=== PATIENT | female | born 1960 | race Caucasian/White ===

== ENCOUNTER 2023-06-12 11:07 | Outpatient (REF) | payer OTHER, SELFPAY ==
[2023-06-12 12:33] LABS: Influenza Virus A Antigen Negative; Influenza Virus B Antigen Negative; Internal Control Within Normal Limits; Respiratory Syncytial Virus Not Detected (NOT DETECTE); SARS-CoV-2 Ag POSITIVE (NEGATIVE)
== END 2023-06-12 11:08 | disposition home or self-care (01) ==
LOC: LAB 11:07
PROVIDERS: PCP Family Medicine; Visit Provider Family Medicine
DX: J21.9 Acute bronchiolitis, unspecified (principal)
CPT/HCPCS: 87420; 87804; 87811

== ENCOUNTER 2023-06-21 13:50 | Outpatient (OUT) | payer OTHER, SELFPAY ==
--- NOTE | 2023-06-21 13:52 | US_ITS ---
The [address] [address] Patient Name: TELMA GUZMAN MRN: [id number] date: 1960 Sex: F Assigned Patient Location: Current Patient Location: US Accession/Order Number: [id number] Exam Date: 06/21/2023 14:15 Report Date: 06/21/2023 15:16 At the request of: ISAI WILKS Procedure: US venous doppler LE LT Ultrasound venous duplex scan left lower extremity CLINICAL: Left calf pain for 2 days. TECHNIQUE: Evans-scale, color Doppler and Duplex examination of the left lower extremity was performed with and without provocative maneuvers. FINDINGS: Comparison: None. Sonographic examination of the left lower extremity deep venous system demonstrates normal compression, color-flow, respiratory variation in the left common femoral, superficial femoral, and popliteal veins. There is also normal compressibility of the greater saphenous vein. There is small amount of soft tissue with lack of compression in the proximal peroneal vein and a branch of the gastrocnemius vein, compatible with positive thrombus. US/US venous doppler LE LT IMPRESSION: 1. Positive for below-knee deep venous thrombus in the proximal left peroneal vein and a branch of the left gastrocnemius vein. The left popliteal vein and above-knee deep venous system in the left leg are patent. Patent greater saphenous vein. The nursing home social worker called results to Dr. Wilks's office at time of study. Electronically authenticated by: OZZIE MCFARLAND Date: 06/21/2023 15:16
--- OUTSIDE RECORDS SUMMARY | 2023-06-21 13:52 | XMS_ITS | CCD ---
Author Name Unknown Address [email or web address] [place] [address] Organization [facility] Care Team Providers Care Electro Mechanical Engineer Name Role Phone DR ISAI OROPEZA Admitting Unavailable DR ISAI OROPEZA Attending Unavailable Beti Cole Unavailable Edwin Quynh Unavailable DO Zayra Salcido Attending Provider [phone] DO Zayra Salcido Attending Provider MD Isai Oropeza Primary Care Provider MD Isai Oropeza Primary Care Provider Community, Outreach Attending Provider [phone] Isai Oropeza Primary Care Unavailable Community, Outreach Admitting Unavailable Community, [facility]reach Attending Unavailable Zayra Salcido Admitting Unavailable Zayra Salcido Attending Unavailable Zayra Salcido Admitting Unavailable Zayra Salcido Attending Unavailable Isai Oropeza Primary Care Unavailable Medications Current Medications Medication Drug Class(es) Dates Sig (Normalized) Sig (Original) Biotin (1 source) take 1 tablet by mouth once daily Biotin 1 tablet Orally Daily Active ciprofloxacin 2 mg/ml / hydrocortisone 10 mg/ml otic suspension (1 source) Corticosteroid, Quinolone Antimicrobial Start: 12-03-2017 Cipro HC 0.2-1 % 3 drops into affected ear Otic Twice a day for 7 day(s) Nov, Active estradiol 0.1 mg/ml vaginal cream (1 source) Estrogen Estradiol 0.1 MG/GM 1 _insert Vaginal Every Sunday Active estrogens, conjugated (intermediate) 0.625 mg/ml vaginal cream (4 sources) Estrogen Start: 06-24-2018 apply 0.625 mg topically once daily Conjugated Estrogens Active 0.625 MG TOPICAL Daily June 24, 2018 12:00am Premarin As Dire cted Active olopatadine (1 source) Histamine-1 Receptor Inhibitor Patanol Active Probiotic (1 source) Probiotic 1 Tabl et Orally As Directed Active simvastatin 20 mg oral tablet (1 source) HMG-CoA Reductase Inhibitor take 1 tablet by mouth once daily in the evening Simvastatin 20 MG 1 tablet in the evening Orally Once a day Active Suprep Bowel Prep Kit 17.5-3.13-1.6 GM/180ML (1 source) Start: 9 Suprep Bowel Prep Kit 17.5-3.13-1.6 GM/180ML 177ml bottle at 4pm, 177ml bottle at 11pm the day prior to colonoscopy Orally Twice a day for 1 day(s) May, Active Problems Active Problems Problem Classification Problem Date Documented Date Episodic/Chronic Immunizations and screening for infectious disease (3 sources) Encounter for screening for other viral diseases; Translations: [Contact with and (suspected) exposure to other viral communicable diseases] Onset: 08-30-2021 Resolved: 02-13-2022 Episodic Menopausal disorders (1 source) Postmenopausal bleeding; Translations: [Postmenopausal bleeding] Onset: 07-21-2022 Chronic Other and unspecified benign neoplasm (3 sources) History of polyp of colon; Translations: [Personal history of colonic polyps] 06-26-2018 Episodic Unclassified (1 source) Encounter for screening mammogram for malignant neoplasm of breast; Translations: [Encounter for screening mammogram for malignant neoplasm of breast] Onset: 10-05-2022 Past or Other Problems Problem Classification Problem Date Documented Da te Episodic/Chronic Genitourinary symptoms and ill-defined conditions (1 source) Hematuria, unspecified; Translations: [Hematuria, unspecified] Onset: 07-21-2022 Episodic Results Test Name Value Interpretation Reference Range Facility Alanine aminotransferase [En zymatic activity/volume] in Serum or PlasmaOrdered By: [facility] on 04-28-2023 ALT [Catalytic activity/Vol] 11 U/L 7-52 [facility] Albumin [Mass/volume] in Ser um or Plasma by Bromocresol green (BCG) dye binding methoOrdered By: [facility] on 04-28-2023 Albumin BCG dye [Mass/Vol] 4.2 g/dL 3.5-5.7 [facility] Alkaline phosphatase [Enzyma tic activity/volume] in Serum or PlasmaOrdered By: OUTREACH [facility] on 04-28-2023 ALP [Catalytic activity/Vol] 66 U/L 34-104 [facility] Aspartate aminotransferase [ Enzymatic activity/volume] in Serum or PlasmaOrdered By: [facility] on 04-28-2023 AST [Catalytic activity/Vol] 14 U/L 13-39 [facility] Bilirubin.total [Mass/volume ] in Serum or PlasmaOrdered By: OUTREACH [facility] on 04-28-2023 Bilirubin [Mass/Vol] 1.3 mg/dL 0.3-1.0 [facility] Comment on above: Samples from patient s who have taken Naproxen have shown spurious elevation in Total Bilirubin levels. A metabolite of Naproxen, O-desmethylnaproxen, has been shown to interfere with the Angel-Hodan method for measuring Total Bilirubin. CBC Without Differentialon 1 06-29-2022 Erythrocyte distribution width (RBC) [Ratio] 13.6 % Normal 11.9-15.3 [facility] Comment on above: Performed By: #### C BCNOOUTREACH, OUTREACH LIPID, OUTREACH CMP #### [address] Hematocrit (Bld) [Volume fraction] 36.4 % Normal 34.0-46.4 [facility] Comment on above: Performed By: #### C BCNOOUTREACH, OUTREACH LIPID, OUTREACH CMP #### [address] Hemoglobin (Bld) [Mass/Vol] 12.1 g/dL Normal 11.8-15.4 [facility] Comment on above: Performed By: #### C BCNOOUTREACH, OUTREACH LIPID, OUTREACH CMP #### [address] MCH (RBC) [Entitic mass] 30.0 pg Normal 24.7-34.3 [facility] Comment on above: Performed By: #### C BCNOOUTREACH, OUTREACH LIPID, OUTREACH CMP #### [address] [place] [address] [place] MCV (RBC) [Entitic vol] 90.1 fL Normal 80-100 [facility] Comment on above: Performed By: #### C BCNOOUTREACH, OUTREACH LIPID, OUTREACH CMP #### [facility] [address] Mean Corpuscular HGB Conc 33.3 g/dL Normal 32.0-35.0 [facility] Comment on above: Performed By: #### C BCNOOUTREACH, OUTREACH LIPID, OUTREACH CMP #### [address] Platelet mean volume (Bld) [Entitic vol] 8.6 fL Normal 6.3-10.7 [facility] Comment on above: Result Comment: PERF ORMED BY: [place] [address] PATHOLOGIST FLIGHT TEACHER DEON KLINE M.D. Performed By: #### C BCNOOUTREACH, OUTREACH LIPID, OUTREACH CMP #### [place] [address] [place] Platelets (Bld) [#/Vol] 236 10*3/uL Normal 150-450 [facility] Comment on above: Performed By: #### C BCNOOUTREACH, OUTREACH LIPID, OUTREACH CMP #### [address] RBC (Bld) [#/Vol] 4.04 10*6/uL Normal 3.60-5.00 [facility] Comment on above: Performed By: #### C BCNOOUTREACH, OUTREACH LIPID, OUTREACH CMP #### [place] [address] [place] WBC (Bld) [#/Vol] 7.4 10*3/uL Normal 3.8-11.6 [facility] Comment on above: Performed By: #### C BCNOOUTREACH, OUTREACH LIPID, OUTREACH CMP #### [facility] [address] [place] [address] [place] CMP Outreachon 04-28-2023 Albumin [Mass/Vol] 4.2 g/dL Normal 3.5-5.7 [facility] Comment on above: Performed By: #### C BCNOOUTREACH, OUTREACH LIPID, OUTREACH CMP #### [facility] [address] [place] [id number] [facility] ALP [Catalytic activity/Vol] 66 U/L Normal 34-104 [facility] Comment on above: Performed By: #### C BCNOOUTREACH, OUTREACH LIPID, OUTREACH CMP #### [facility] [address] [place] [address] [place] ALT [Catalytic activity/Vol] 11 U/L Normal 7-52 [facility] Comment on above: Performed By: #### C BCNOOUTREACH, OUTREACH LIPID, OUTREACH CMP #### [address] Anion gap [Moles/Vol] 11.6 mmol/L Normal 6.0-15.0 [place] Comment on above: Performed By: #### C BCNOOUTREACH, OUTREACH LIPID, OUTREACH CMP #### [facility] [address] [place], [place] [id number] [place] AST [Catalytic activity/Vol] 14 U/L Normal 13-39 [facility] Comment on above: Performed By: #### C BCNOOUTREACH, OUTREACH LIPID, OUTREACH CMP #### [place] [id number] [place] Bilirubin [Mass/Vol] 1.3 mg/dL High 0.3-1.0 [facility] Comment on above: Result Comment: Samp les from patients who have taken Naproxen have shown spurious elevation in Total Bilirubin levels. A metabolite of Naproxen, O-desmethylnaproxen, has been shown to interfere with the Jennishantik-Hodan method for measuring Total Bilirubin. Performed By: #### C BCNOOUTREACH, OUTREACH LIPID, OUTREACH CMP #### [facility] [address] [place] [id number] [place] Calcium [Mass/Vol] 9.2 mg/dL Normal 8.6-10.3 [facility] Comment on above: Performed By: #### C BCNOOUTREACH, OUTREACH LIPID, OUTREACH CMP #### [facility] [address] [place] [address] [place] Chloride [Moles/Vol] 105 mmol/L Normal 98-107 [facility] Comment on above: Performed By: #### C BCNOOUTREACH, OUTREACH LIPID, OUTREACH CMP #### [facility] [address] [place] [address] [place] CO2 [Moles/Vol] 28.1 mmol/L Normal 21.0-31.0 [facility] Comment on above: Performed By: #### C BCNOOUTREACH, OUTREACH LIPID, OUTREACH CMP #### [facility] [address] [place] [address] [place] Creatinine [Mass/Vol] 0.78 mg/dL Normal 0.60-1.20 [facility] Comment on above: Performed By: #### C BCNOOUTREACH, OUTREACH LIPID, OUTREACH CMP #### [facility] [address] [place] [address] [place] GFR/1.73 sq M.predicted MDRD (S/P/Bld) [Vol rate/Area] mL/min/{1.73_m2} Normal [facility] Comment on above: Performed By: #### C BCNOOUTREACH, OUTREACH LIPID, OUTREACH CMP #### [place] [address] [place] Glucose [Mass/Vol] 92 mg/dL Normal 70-100 [facility] Comment on above: Result Comment: [facility] Glucose Reference Range is dependent on time and content of last meal. Glucose of more than 200 mg/dL in a nonstressed, ambulatory subject supports the diagnosis of Diabetes Mellitus. ADA recommended reference range Performed By: #### C BCNOOUTREACH, OUTREACH LIPID, OUTREACH CMP #### [facility] [address] [place] [address] [place] Potassium [Moles/Vol] 3.7 mmol/L Normal 3.5-5.1 [facility] Comment on above: Performed By: #### C BCNOOUTREACH, OUTREACH LIPID, OUTREACH CMP #### [facility] [address] [place] [id number] [place] Protein [Mass/Vol] 7.5 g/dL Normal 6.4-8.9 [facility] Comment on above: Performed By: #### C BCNOOUTREACH, OUTREACH LIPID, OUTREACH CMP #### [facility] [address] [place] [phone] [place] Sodium [Moles/Vol] 141 mmol/L Normal 136-145 [facility] Comment on above: Performed By: #### C BCNOOUTREACH, OUTREACH LIPID, OUTREACH CMP #### [facility] [address] [place] [address] [place] Urea nitrogen [Mass/Vol] 20 mg/dL Normal 7-25 [facility] Comment on above: Performed By: #### C BCNOOUTRESE, OUTREACH LIPID, OUTREACH CMP #### [facility] [address] [place] [phone] [place] Calcium [Mass/volume] in Ser um or PlasmaOrdered By: [facility] on 04-28-2023 Calcium [Mass/Vol] 9.2 mg/dL 8.6-10.3 [facility] Carbon dioxide, total [Moles /volume] in Serum or PlasmaOrdered By: [facility] on 04-28-2023 CO2 [Moles/Vol] 28.1 mmol/L 21.0-31.0 [facility] Chloride [Moles/volume] in S tootie or PlasmaOrdered By: [facility]REACH [facility] on 04-28-2023 Chloride [Moles/Vol] 105 mmol/L 98-107 [facility] Cholesterol [Mass/volume] in Serum or PlasmaOrdered By: [facility]ACH [facility] on 04-28-2023 Cholesterol [Mass/Vol] 270 mg/dL 140-200 [place] Comment on above: Chol less than 200 m g/dl low riskChol 201-239 mg/dl borderline riskChol 240 mg/dl and greater high risk Cholesterol in LDL Calc [Mas s/Vol]Ordered By: [facility] on 04-28-2023 Cholesterol in LDL [Mass/Vol] 186 mg/dL 0-100 [facility] Comment on above: LDL ATP III CLASSIFI CATIONLDL less than 100 mg/dL OptimalLDL 100-129 mg/dL Near or above optimalLDL 130-159 mg/dL Borderline highLDL 160-189 mg/dL HighLDL greater than 189 mg/dL Very high Cholesterol in VLDL Calc [Ma ss/Vol]Ordered By: [facility] on 04-28-2023 Cholesterol in VLDL [Mass/Vol] 16 mg/dL [facility] Creatinine [Mass/volume] in Serum or PlasmaOrdered By: [facility] on 04-28-2023 Creatinine [Mass/Vol] 0.78 mg/dL 0.60-1.20 [facility] Erythrocyte distribution wid th Auto (RBC) [Ratio]Ordered By: [facility] on 04-28-2023 Erythrocyte distribution width (RBC) [Ratio] 13.6 % 11.9-15.3 [facility] Glucose [Mass/volume] in Ser um or PlasmaOrdered By: [facility] on 04-28-2023 Glucose [Mass/Vol] 92 mg/dL 70-100 [facility] Comment on above: ADA recommended refe rence rangeRandom Glucose Reference Range is dependent on time and content of last meal. Glucose of more than 200 mg/dL in a nonstressed, ambulatory subject supports the diagnosis of Diabetes Mellitus. Hematocrit Auto (Bld) [Volum e fraction]Ordered By: [facility] on 04-28-2023 Hematocrit (Bld) [Volume fraction] 36.4 % 34.0-46.4 [facility] Hemoglobin [Mass/volume] in BloodOrdered By: [facility] on 04-28-2023 Hemoglobin (Bld) [Mass/Vol] 12.1 g/dL 11.8-15.4 [facility] Leukocytes [#/volume] correc armando for nucleated erythrocytes in Blood by Automated counOrdered By: [facility] on 04-28-2023 WBC corrected for nucl RBC Auto (Bld) [#/Vol] 7.4 10*3/uL 3.8-11.6 [facility] Lipid Profile Outreach Cholesterol [Mass/Vol] 270 mg/dL High 140-200 [place] Comment on above: Result Comment: Chol less than 200 mg/dl low risk Chol 201-239 mg/dl borderline risk Chol 240 mg/dl and greater high risk Performed By: #### C SEPIDEH CORBETT LIPID, OUTREACH CMP #### [facility] [address] Cholesterol in HDL [Mass/Vol] 68 mg/dL Normal 23-92 [facility] Comment on above: Result Comment: HDL CHOL ATP-III CLASSIFICATION Cardiovascular Risk HDL > or equal to 60 mg/dL LOW HDL < 40 mg/dL HIGH Performed By: #### C BCNOOUTREACH, OUTREACH LIPID, OUTREACH CMP #### [facility] [address] Cholesterol.total/Lili sterol in HDL [Mass ratio] 4.0 {ratio} Normal <5.0 [facility] Comment on above: Result Comment: PERF ORMED BY: [place] [address] PATHOLOGIST FLIGHT TEACHER DEON KLINE M.D. Performed By: #### C BCNOOUTREACH, OUTREACH LIPID, OUTREACH CMP #### [facility] [address] [place] [address] LDL Cholesterol,Calculated 186 mg/dL High 0-100 [facility] Comment on above: Result Comment: LDL ATP III CLASSIFICATION LDL less than 100 mg/dL Optimal LDL 100-129 mg/dL Near or above optimal LDL 130-159 mg/dL Borderline high LDL 160-189 mg/dL High LDL greater than 189 mg/dL Very high Performed By: #### C BCNOOUTREACH, OUTREACH LIPID, OUTREACH CMP #### [facility] [address] [place] [address] Triglyceride w/Reflex 80 mg/dL Normal 0-149 [facility] Comment on above: Result Comment: TRIG ATP III CLASSIFICATION TRIG less than 150 mg/dL Normal TRIG 150-199 mg/dL Borderline high TRIG 200-500 mg/dL High TRIG greater than 500 mg/dL Very high Standard traceable to the Center for Disease Conrtrol and Prevention (CDC) test method. Performed By: #### C BCNOOUTREACH, OUTREACH LIPID, OUTREACH CMP #### [facility] [address] [place] [address] VLDL CHOLESTEROL 16 mg/dL Normal [facility] Comment on above: Performed By: #### C BCNOOUTREACH, OUTREACH LIPID, OUTREACH CMP #### [facility] [address] MCH Auto (RBC) [Entitic mass ]Ordered By: [facility] on 04-28-2023 MCH (RBC) [Entitic mass] 30.0 pg 24.7-34.3 [facility] MCHC Auto (RBC) [Mass/Vol]Or dered By: [facility] on 04-28-2023 MCHC (RBC) [Mass/Vol] 33.3 g/dL 32.0-35.0 [facility] MCV Auto (RBC) [Entitic vol] Ordered By: OUTREACH [facility] on 04-28-2023 MCV (RBC) [Entitic vol] 90.1 fL 80-100 [facility] No Panel InformationOrdered By: OUTREACH [facility] on 04-28-2023 Estimated GFR (CKD-EPI) > 60.0 mL/Min [facility] Creatinine Clearance (Chem N/A [facility] Platelet mean volume Auto (B ld) [Entitic vol]Ordered By: OUTREACH [facility] on 04-28-2023 Platelet mean volume (Bld) [Entitic vol] 8.6 fL 6.3-10.7 [facility] Platelets Auto (Bld) [#/Vol] Ordered By: OUTREACH [facility] on 04-28-2023 Platelets (Bld) [#/Vol] 236 10*3/uL 150-450 [facility] Potassium [Moles/volume] in Serum or PlasmaOrdered By: OUTREACH [facility] on 04-28-2023 Potassium [Moles/Vol] 3.7 mmol/L 3.5-5.1 [facility] Protein [Mass/volume] in Ser um or PlasmaOrdered By: OUTREACH [facility] on 04-28-2023 Protein [Mass/Vol] 7.5 g/dL 6.4-8.9 [facility] RBC Auto (Bld) [#/Vol]Ordere d By: [facility] on 04-28-2023 RBC (Bld) [#/Vol] 4.04 10*6/uL 3.60-5.00 [facility] Serum or plasma anion gap de terminationOrdered By: OUTREACH COMM[facility] on 04-28-2023 Anion gap [Moles/Vol] 11.6 mmol/L 6.0-15.0 [place] Serum or plasma high density lipoprotein (HDL) cholesterol measurementOrdered By: OUTREACH COMMUNITY on 04-28-2023 Cholesterol in HDL [Mass/Vol] 68 mg/dL 23- [facility] Comment on above: HDL CHOL ATP-III CLA SSIFICATION Cardiovascular RiskHDL > or equal to 60 mg/dL LOWHDL < 40 mg/dL HIGH Serum or plasma total choles terol/high density lipoprotein (HDL) cholesterol mass ratOrdered By: [facility]ACH [facility] on 04-28-2023 Cholesterol.total/Lili sterol in HDL [Mass ratio] 4.0 {ratio} <5.0 [facility] Sodium [Moles/volume] in Ser um or PlasmaOrdered By: [facility] on 04-28-2023 Sodium [Moles/Vol] 141 mmol/L 136-145 [facility] Triglyceride [Mass/volume] i n Serum or PlasmaOrdered By: OUTREACH [facility] on 04-28-2023 Triglyceride [Mass/Vol] 80 mg/dL 0-149 [facility] Comment on above: TRIG ATP III CLASSIF ICATIONTRIG less than 150 mg/dL NormalTRIG 150-199 mg/dL Borderline highTRIG 200-500 mg/dL High TRIG greater than 500 mg/dL Very highStandard traceable to the Center for Disease Conrtrol and Prevention (CDC) test method. Urea nitrogen [Mass/volume] in Serum or PlasmaOrdered By: OUTREACH [facility] on 04-28-2023 Urea nitrogen [Mass/Vol] 20 mg/dL 7-25 [facility] MM screening mammo BI w/CADo n 10-05-2022 MM screening mammo BI w/CAD [facility] [place] [address] Mammography Report Signed Patient: Jessica Perez MR#: [id number] : 1960 Acct:[id number] Age/Sex: 62 / F ADM Date: 10/05/22 Loc: [place] Room: Type: [facility] Attending Dr: Zayra Salcido DO Copies to: MD ITZEL Jones MONA DO Ordering Provider: ZAYRA SALCIDO DO Date of Service: 10/05/22 MM/MM screening mammo BI w/CAD: screening;Encounter for screening mammogram for malignant ne CLINICAL DATA: Screening for malignancy. BILATERAL SCREENING MAMMOGRAMS - FULL FIELD DIGITAL WITH TOMOSYNTHESIS AND CAD Tomosynthesis craniocaudal and mediolateral oblique views of both breasts were obtained using low- dose digital technique. Comparison is made to prior studies from February 15, 2017 through August 31, 2021. This examination was reviewed with the aid of CAD. There are scattered fibroglandular densities. There are benign and vascular calcifications. There are no developing masses, typically malignant calcifications or architectural distortion. There has been no significant interval change. MM/MM screening mammo BI w/CAD IMPRESSION: NO MAMMOGRAPHIC EVIDENCE OF MALIGNANCY. ROUTINE FOLLOW-UP IS RECOMMENDED IN ONE YEAR. RESULT CODE: 2 Benign Findings(s) DENSITY CODE: 2 (approximately 25-50% glandular) FOLLOW UP: 1YR The false-negative rate of mammography is approximately 10-percent. Management of a palpable abnormality must be based on clinical grounds. Patient was entered into a reminder system with a target due date for the next mammogram. Impression dictated by: Teresa Jones M.D.10/05/2022 4:06 PM Dictation Location: [facility] Transcribed By: [facility] 10/05/22 1606 Dictated By: Teresa Jones MD 10/05/22 1603 Signed By: 10/05/22 1606 [facility] Urine Cultureon 07-21-2022 Bacteria identified Cx Nom (U) Reason for Exam Post-menopausal bleeding;Hematuria, unspecified type No Growth 2 Days PERFORMED BY: [place] [address] PATHOLOGIST FLIGHT TEACHER DEON KLINE M.D. [facility] Comment on above: Performed By: #### C UU #### [address] Urine culture routineOrdered By: ZAYRA SALCIDO on 07-21-2022 Bacteria identified Cx Nom (U) No Growth 2 Days [facility] SARS-CoV-2 (COVID-19) RNA NA A+probe Ql (Resp)on 02-13-2022 SARS-CoV-2 (COVID-19) RNA LAYO+probe Ql (Unsp spec) Positive [employer] Other COVID Quick Testingon 2021 Result Negative [facility] Other Encounters Encounter Date Encounter Type Care Provider Facility Start: 04-28-2023 End: 04-28-2023 ambulatory Isai Oropeza Facility:[facility] Start: 04-28-2023 End: 04-28-2023 ambulatory MD Isai Oropeza Work Phone: [facility] Work Phone: Start: 04-28-2023 End: 04-28-2023 Departed Referred MD Isai Oropeza Work Phone: [facility] Work Phone: Start: 10-05-2022 End: 10-05-2022 ambulatory Zayra Nataprawira Facility:[facility] Start: 10-05-2022 End: 10-05-2022 ambulatory MD Isai Oropeza Work Phone: [facility] Work Phone: Start: 10-05-2022 End: 10-05-2022 Patient encounter procedure MD Isai Oropeza Work Phone: [facility] Work Phone: Start: 07-21-2022 End: 07-21-2022 ambulatory Zayra Nataprawira Facility:[facility] Start: 07-21-2022 End: 07-21-2022 ambulatory DO Zayra Nataprawira Work Phone: [facility] Work Phone: Start: 07-21-2022 End: 07-21-2022 Departed Referred DO Zayra Nataprawira Work Phone: [facility] [place] Work Phone: Start: 02-13-2022 End: 02-13-2022 ambulatory Quynh Pineda Other [employer] Other Start: 02-13-2022 Office outpatient visit 5 minutes Quynh Pineda [facility] Start: 10-13-[address] ISAI OROPEZA Facility : Start: 08-30-2021 End: 08-30-2021 ambulatory Beti Cole Other [employer] Other Start: 08-30-2021 Office outpatient visit 5 minutes Beti Cole [facility] Procedures Date Procedure Procedure Detail Performing Clinician Start: 10-05-2022 Screening mammograph y of bilateral breasts MD Isai Oropeza Work Phone: Start: 07-21-2022 Urine culture MD Nabeel Oropeza Work Phone: Plan of Treatment Date Care Activity Detail Author Start: 07-21-2022 Bacteria identified in Urine by Culture [facility] Immunizations Immunization Date Immunization Notes Care Provider Fa cility 07-02-2020 COVID-19 mRNA-1273 (Moderna) DO Zayra Nataprawira Work Phone: [facility] 06-04-2020 COVID-19 mRNA-1273 (Moderna) DO Zayra Nataprawira Work Phone: [facility] Payers Date Payer Category Payer Unknown [id number] 1960 Self-pay 1960 Unknown [id number] 93 Unknown [id number] 31 Unknown [id number] 31 Unknown [id number] 31 Worker's Compensation Formerly [facility] t Ind [id number] Social History Date Type Detail Facility Sex Assigned At [facility] [employer] Other Start: 1960 Sex Assigned At Female [facility] Evaluation note 02-13-2022 Note Date & Type Note Facility 02-13-2022 Evaluation note Encounter Date Diagnosis Assessment Notes Jan, Contact with and (suspected) exposure to other viral communicable diseases (ICD-10 - Z20.828) [facility] [employer] Other Evaluation note 08-30-2021 Note Date & Type Note Facility 08-30-2021 Evaluation note Encounter Date Diagnosis Assessment Notes Aug, Encounter for screening for other viral diseases (ICD-10 - Z11.59) Aug, Other Additional time spent conducting pre-visit phone call, screening for symptoms, instructions on social distancing, application and removal of PPE, and cleaning of examination room, equipment and supplies was preformed. Patient education given for testing methodology and results. Patient care instructions given in writting by [facility] document. [facility] [employer] [facility] Other Evaluation note Note Date & Type Note Facility Evaluation note No assessment information availa [facility] Work Phone: History general Narrative - Reported Note Date & Type Note Facility History general Narrative - Reported Type Surgical History bunion 1974 Hospitalization History see above [facility] [employer] [facility] Other Summary Purpose Family History No Family History Records FoundNo Family History Records Found Advance Directives No Advanced Directives Records Found Advance Directive Response Recorded Date/ Time Advance Directives No January 12:13pm Advance Directive Response Recorded Date/ Time Advance Directives No January 1:13pm Chief Complaint and Reason for Visit Chief Complaint Post-menopausal blee ding;Hematuria, unspecified ty Chief Complaint n95.0 R31.9 Screening Chief Complaint complete Additional Source Comments INFORMATION SOURCE (unrecogn ized section and content) DATE CREATED AUTHOR 10/15/2021 [employer] DATE CREATED AUTHOR AUTHOR'S ORGANIZ ATION 04/30/2023 [facility] REASON FOR VISIT (unrecogniz ed section and content) [employer] [facility] [employer] [facility] [employer] PCR, POSITIVE HOME TEST Care Teams (unrecognized sec tion and content) Team Status: Inactive Member Role Status Dates Zayra Salcido DO Attending Provider Active Team Status: Active Member Role Status Dates Isai Oropeza MD Primary Care Provider Active Team Status: Inactive Member Role Status Dates Zayra Salcido DO Attending Provider Active Isai Oropeza MD Primary Care Provider Active Team Status: Inactive Member Role Status Dates Isai Oropeza MD Primary Care Provider Active Outreach [facility] Attending Provider Active Goals (unrecognized section and content) Goals may be documented in a n alternate section FOR RECORDS PERTAINING TO PATIENTS WHO ARE OR HAVE BEEN ENROLLED IN A CHEMICAL DEPENDENCY/SUBSTANCEABUSE PROGRAM, SOME INFORMATION MAY BE OMITTED. This clinical summary was aggregated from multiple sources. Caution should be exercised in using it in the provision of clinical care. This summary normalizes information from multiple sources, and as a consequence, information in this document may materially change the coding, format and clinical context of patient data. In addition, data may be omitted in some cases. CLINICAL DECISIONS SHOULD BE BASED ON THE PRIMARY CLINICAL RECORDS. [employer] [facility]. provides no warranty or guarantee of the accuracy or completeness of information in this document.
== END 2023-06-21 13:51 | disposition home or self-care (01) ==
LOC: US 13:50
PROVIDERS: PCP Family Medicine; Visit Provider Family Medicine
DX: M79.606 Pain in leg, unspecified (principal); R60.0 Localized edema; I82.452 Acute embolism and thrombosis of left peroneal vein; I82.462 Acute embolism and thrombosis of left calf muscular vein
CPT/HCPCS: 93971

== ENCOUNTER 2023-07-20 11:21 | Outpatient (OUT) | payer OTHER, SELFPAY ==
--- NOTE | 2023-07-20 11:24 | US_ITS ---
The [address] [address] Patient Name: TELMA GUZMAN MRN: [id number] date: 1960 Sex: F Assigned Patient Location: US Current Patient Location: US Accession/Order Number: [id number] Exam Date: 07/20/2023 11:36 Report Date: 07/20/2023 13:51 At the request of: ISAI OROPEZA Procedure: US venous doppler LE LT EXAMINATION: US venous doppler LE LT HISTORY: Left Leg DVT I82.402 COMPARISON: Ultrasound venous Doppler lower extremity left 06/21/2023 FINDINGS: REGION: Left lower extremity THROMBI: None. COMPRESSIBILITY: Normal compressibility. FLOW: Normal waveform and antegrade flow between 5 and 20 cm/s. OTHER: None. US/US venous doppler LE LT IMPRESSION: 1. No deep vein thrombus within the left lower extremity. Electronically authenticated by: LAURA MOY Date: 07/20/2023 13:51
--- OUTSIDE RECORDS SUMMARY | 2023-07-20 11:25 | XMS_ITS | CCD ---
Author Name Unknown Address [address] [place] [address] Organization [facility] Care Team Providers Care Quality Control Scientist Name Role Phone DR ISAI OROPEZA Admitting Unavailable DR ISAI OROPEZA Attending Unavailable Beti Cole Unavailable Edwin Quynh Unavailable DO Zayra Salcido Attending Provider DO Zayra Salcido Attending Provider MD Isai Oropeza Primary Care Provider MD Isai Oropeza Primary Care Provider Community, Outreach Attending Provider Isai Oropeza Primary Care Unavailable Community, Outreach [...] _insert Vaginal Every Sunday Active estrogens, conjugated (retirement) 0.625 mg/ml vaginal cream (4 sources) Estrogen [...] 04-28-2023 ALT [Catalytic activity/Vol] 11 U/L 7-52 [facility] Albumin [Mass/volume] in Ser um or Plasma by Bromocresol green (BCG) dye binding methoOrdered By: OUTREACH COMMUNITY on 04-28-2023 Albumin BCG dye [Mass/Vol] 4.2 g/dL 3.5-5.7 [facility] Alkaline phosphatase [Enzyma tic activity/volume] in Serum or PlasmaOrdered By: OUTREACH [facility] on 04-28-2023 ALP [Catalytic activity/Vol] 66 U/L 34-104 [facility] Aspartate aminotransferase [ Enzymatic activity/volume] in Serum or PlasmaOrdered By: [facility] on 04-28-2023 AST [Catalytic activity/Vol] 14 U/L 13-39 [facility] Bilirubin.total [Mass/volume ] in Serum or PlasmaOrdered By: OUTREACH [facility] on 04-28-2023 Bilirubin [Mass/Vol] 1.3 mg/dL 0.3-1.0 [facility] Comment on above: Samples from patient s who have taken Naproxen have shown spurious elevation in Total Bilirubin levels. A metabolite of Naproxen, O-desmethylnaproxen, has been shown to interfere with the Angel-Hodan method for measuring Total Bilirubin. CBC Without Differentialon 1 06-29-2022 Erythrocyte distribution width (RBC) [Ratio] 13.6 % Normal 11.9-15.3 [facility] Comment on above: Performed By: #### C BCNOOUTREACH, OUTREACH LIPID, OUTREACH CMP #### [address] Hematocrit (Bld) [Volume fraction] 36.4 % Normal 34.0-46.4 [facility] Comment on above: Performed By: #### C BCNOOUTREACH, OUTREACH LIPID, OUTREACH CMP #### [address] Hemoglobin (Bld) [Mass/Vol] 12.1 g/dL Normal 11.8-15.4 [facility] Comment on above: Performed By: #### C BCNOOUTREACH, OUTREACH LIPID, OUTREACH CMP #### [address] MCH (RBC) [Entitic mass] 30.0 pg Normal 24.7-34.3 [facility] Comment on above: Performed By: #### C BCNOOUTREACH, OUTREACH LIPID, OUTREACH CMP #### [address] [place] [address] [place] MCV (RBC) [Entitic vol] 90.1 fL Normal 80-100 F [facility] Comment on above: Performed By: #### C BCNOOUTREACH, OUTREACH LIPID, OUTREACH CMP #### [facility] [address] Mean Corpuscular HGB Conc 33.3 g/dL Normal 32.0-35.0 [facility] Comment on above: Performed By: #### C BCNOOUTREACH, OUTREACH LIPID, OUTREACH CMP #### [address] Platelet mean volume (Bld) [Entitic vol] 8.6 fL Normal 6.3-10.7 [facility] Comment on above: Result Comment: PERF ORMED BY: [place] [address] PATHOLOGIST BOAT OPERATOR DEON KLINE M.D. Performed By: #### C BCNOOUTREACH, OUTREACH LIPID, OUTREACH CMP #### [place] [address] [place] Platelets (Bld) [#/Vol] 236 10*3/uL Normal 150-450 [facility] Comment on above: Performed By: #### C BCNOOUTREACH, OUTREACH LIPID, OUTREACH CMP #### [address] RBC (Bld) [#/Vol] 4.04 10*6/uL Normal 3.60-5.00 [facility] Comment on above: Performed By: #### C BCNOOUTREACH, OUTREACH LIPID, OUTREACH CMP #### [place] [address] [place] WBC (Bld) [#/Vol] 7.4 10*3/uL Normal 3.8-11.6 [facility] Comment on above: Performed By: #### C BCNOOUTREACH, OUTREACH LIPID, OUTREACH CMP #### [facility] [address] [place] [address] [place] CMP Outreachon 04-28-2023 Albumin [Mass/Vol] 4.2 g/dL Normal 3.5-5.7 [facility] Comment on above: Performed By: #### C BCNOOUTREACH, OUTREACH LIPID, OUTREACH CMP #### [facility] [address] [place] [id number] [facility] ALP [Catalytic activity/Vol] 66 U/L Normal 34-104 [facility] Comment on above: Performed By: #### C BCNOOUTREACH, OUTREACH LIPID, OUTREACH CMP #### [facility] [address] [place] [address] [place] ALT [Catalytic activity/Vol] 11 U/L Normal 7-52 [facility] Comment on above: Performed By: #### C BCNOOUTREACH, OUTREACH LIPID, OUTREACH CMP #### [address] Anion gap [Moles/Vol] 11.6 mmol/L Normal 6.0-15.0 [facility] Comment on above: Performed By: #### C BCNOOUTREACH, OUTREACH LIPID, OUTREACH CMP #### [facility] [address] [place], [place] [id number] [place] AST [Catalytic activity/Vol] 14 U/L Normal 13-39 [facility] Comment on above: Performed By: #### C BCNOOUTREACH, OUTREACH LIPID, OUTREACH CMP #### [place] [id number] [place] Bilirubin [Mass/Vol] 1.3 mg/dL High 0.3-1.0 [facility] Comment on above: Result Comment: Samp les from patients who have taken Naproxen have shown spurious elevation in Total Bilirubin levels. A metabolite of Naproxen, O-desmethylnaproxen, has been shown to interfere with the Jennishantik-Hodan method for measuring Total Bilirubin. Performed By: #### C BCNOOUTREACH, OUTREACH LIPID, OUTREACH CMP #### [facility] [address] [place] [phone] [place] Calcium [Mass/Vol] 9.2 mg/dL Normal 8.6-10.3 [facility] Comment on above: Performed By: #### C BCNOOUTREACH, OUTREACH LIPID, OUTREACH CMP #### [facility] [address] [place] [address] [place] Chloride [Moles/Vol] 105 mmol/L Normal 98-107 [facility] Comment on above: Performed By: #### C BCNOOUTREACH, OUTREACH LIPID, OUTREACH CMP #### [facility] [address] [place] [address] [place] CO2 [Moles/Vol] 28.1 mmol/L Normal 21.0-31.0 [facility] Comment on above: Performed By: #### C BCNOOUTREACH, OUTREACH LIPID, OUTREACH CMP #### [facility] [address] [place] [address] [place] Creatinine [Mass/Vol] 0.78 mg/dL Normal 0.60-1.20 [facility] Comment on above: Performed By: #### C BCNOOUTREACH, OUTREACH LIPID, OUTREACH CMP #### [facility] [address] [place] [address] [place] GFR/1.73 sq M.predicted MDRD (S/P/Bld) [Vol rate/Area] mL/min/{1.73_m2} Normal [facility] Comment on above: Performed By: #### C BCNOOUTREACH, OUTREACH LIPID, OUTREACH CMP #### [place] [address] [place] Glucose [Mass/Vol] 92 mg/dL Normal 70-100 [facility] Comment on above: Result Comment: [facility] Glucose Reference Range is dependent on time and content of last meal. Glucose of more than 200 mg/dL in a nonstressed, ambulatory subject supports the diagnosis of Diabetes Mellitus. ADA recommended reference range Performed By: #### C BCNOOUTREACH, OUTREACH LIPID, OUTREACH CMP #### [facility] [address] [place] [address] [place] Potassium [Moles/Vol] 3.7 mmol/L Normal 3.5-5.1 [facility] Comment on above: Performed By: #### C BCNOOUTREACH, OUTREACH LIPID, OUTREACH CMP #### [facility] [address] [place] [id number] [place] Protein [Mass/Vol] 7.5 g/dL Normal 6.4-8.9 [facility] Comment on above: Performed By: #### C BCNOOUTREACH, OUTREACH LIPID, OUTREACH CMP #### [facility] [address] [place] [phone] [place] Sodium [Moles/Vol] 141 mmol/L Normal 136-145 [facility] Comment on above: Performed By: #### C BCNOOUTREACH, OUTREACH LIPID, OUTREACH CMP #### [facility] [address] [place] [address] [place] Urea nitrogen [Mass/Vol] 20 mg/dL Normal 7-25 [facility] Comment on above: Performed By: #### C BCNOOUTRESE, OUTREACH LIPID, OUTREACH CMP #### [facility] [address] [place] [phone] [place] Calcium [Mass/volume] in Ser um or PlasmaOrdered By: OUTREACH COMMUNITY on 04-28-2023 Calcium [Mass/Vol] 9.2 mg/dL 8.6-10.3 [facility] Carbon dioxide, total [Moles /volume] in Serum or PlasmaOrdered By: OUTREACH COMMUNITY on 04-28-2023 CO2 [Moles/Vol] 28.1 mmol/L 21.0-31.0 [facility] Chloride [Moles/volume] in S [place] or PlasmaOrdered By: OUTREACH COMMUNITY on 04-28-2023 Chloride [Moles/Vol] 105 mmol/L 98-107 [facility] Cholesterol [Mass/volume] in Serum or PlasmaOrdered By: OUTREACH COMMUNITY on 04-28-2023 Cholesterol [Mass/Vol] 270 mg/dL 140-200 [facility] Comment on above: Chol less than 200 m g/dl low riskChol 201-239 mg/dl borderline riskChol 240 mg/dl and greater high risk Cholesterol in LDL Calc [Mas s/Vol]Ordered By: OUTREACH COMMUNITY on 04-28-2023 Cholesterol in LDL [Mass/Vol] 186 mg/dL 0-100 [facility] Comment on above: LDL ATP III CLASSIFI CATIONLDL less than 100 mg/dL OptimalLDL 100-129 mg/dL Near or above optimalLDL 130-159 mg/dL Borderline highLDL 160-189 mg/dL HighLDL greater than 189 mg/dL Very high Cholesterol in VLDL Calc [Ma ss/Vol]Ordered By: [facility] on 04-28-2023 Cholesterol in VLDL [Mass/Vol] 16 mg/dL [facility] Creatinine [Mass/volume] in Serum or PlasmaOrdered By: [facility] on 04-28-2023 Creatinine [Mass/Vol] 0.78 mg/dL 0.60-1.20 [facility] Erythrocyte distribution wid th Auto (RBC) [Ratio]Ordered By: [facility] on 04-28-2023 Erythrocyte distribution width (RBC) [Ratio] 13.6 % 11.9-15.3 [facility] Glucose [Mass/volume] in Ser um or PlasmaOrdered By: [facility] on 04-28-2023 Glucose [Mass/Vol] 92 mg/dL 70-100 [facility] Comment on above: ADA recommended refe rence rangeRandom Glucose Reference Range is dependent on time and content of last meal. Glucose of more than 200 mg/dL in a nonstressed, ambulatory subject supports the diagnosis of Diabetes Mellitus. Hematocrit Auto (Bld) [Volum e fraction]Ordered By: [facility] on 04-28-2023 Hematocrit (Bld) [Volume fraction] 36.4 % 34.0-46.4 [facility] Hemoglobin [Mass/volume] in BloodOrdered By: [facility] on 04-28-2023 Hemoglobin (Bld) [Mass/Vol] 12.1 g/dL 11.8-15.4 [facility] Leukocytes [#/volume] correc armando for nucleated erythrocytes in Blood by Automated counOrdered By: [facility] on 04-28-2023 WBC corrected for nucl RBC Auto (Bld) [#/Vol] 7.4 10*3/uL 3.8-11.6 [facility] Lipid Profile Outreach Cholesterol [Mass/Vol] 270 mg/dL High 140-200 [facility] Comment on above: Result Comment: Chol less than 200 mg/dl low risk Chol 201-239 mg/dl borderline risk Chol 240 mg/dl and greater high risk Performed By: #### C SEPIDEH CORBETT LIPID, OUTREACH CMP #### [facility] [address] Cholesterol in HDL [Mass/Vol] 68 mg/dL Normal 23-92 [facility] Comment on above: Result Comment: HDL CHOL ATP-III CLASSIFICATION Cardiovascular Risk HDL > or equal to 60 mg/dL LOW HDL < 40 mg/dL HIGH Performed By: #### C BCNOOUTREACH, OUTREACH LIPID, OUTREACH CMP #### [facility] [address] Cholesterol.total/Lili sterol in HDL [Mass ratio] 4.0 {ratio} Normal <5.0 [facility] Comment on above: Result Comment: PERF ORMED BY: [place] [address] PATHOLOGIST BOAT OPERATOR DEON KLINE M.D. Performed By: #### C BCNOOUTREACH, OUTREACH LIPID, OUTREACH CMP #### [facility] [address] [place] [address] LDL Cholesterol,Calculated 186 mg/dL High 0-100 [facility] Comment on above: Result Comment: LDL ATP III CLASSIFICATION LDL less than 100 mg/dL Optimal LDL 100-129 mg/dL Near or above optimal LDL 130-159 mg/dL Borderline high LDL 160-189 mg/dL High LDL greater than 189 mg/dL Very high Performed By: #### C BCNOOUTREACH, OUTREACH LIPID, OUTREACH CMP #### [facility] [address] [place] [address] Triglyceride w/Reflex 80 mg/dL Normal 0-149 [facility] Comment on above: Result Comment: TRIG ATP III CLASSIFICATION TRIG less than 150 mg/dL Normal TRIG 150-199 mg/dL Borderline high TRIG 200-500 mg/dL High TRIG greater than 500 mg/dL Very high Standard traceable to the Center for Disease Conrtrol and Prevention (CDC) test method. Performed By: #### C BCNOOUTREACH, OUTREACH LIPID, OUTREACH CMP #### [facility] [address] [place] [address] VLDL CHOLESTEROL 16 mg/dL Normal [facility] Comment on above: Performed By: #### C BCNOOUTREACH, OUTREACH LIPID, OUTREACH CMP #### [facility] [address] MCH Auto (RBC) [Entitic mass ]Ordered By: OUTREACH COMMUNITY on 04-28-2023 MCH (RBC) [Entitic mass] 30.0 pg 24.7-34.3 [facility] MCHC Auto (RBC) [Mass/Vol]Or dered By: OUTREACH COMMUNITY on 04-28-2023 MCHC (RBC) [Mass/Vol] 33.3 g/dL 32.0-35.0 [facility] MCV Auto (RBC) [Entitic vol] Ordered By: OUTREACH [facility] on 04-28-2023 MCV (RBC) [Entitic vol] 90.1 fL 80-100 F [facility] No Panel InformationOrdered By: OUTREACH [facility] on 04-28-2023 Estimated GFR (CKD-EPI) > 60.0 mL/Min [facility] Creatinine Clearance (Chem N/A [facility] Platelet mean volume Auto (B ld) [Entitic vol]Ordered By: OUTREACH [facility] on 04-28-2023 Platelet mean volume (Bld) [Entitic vol] 8.6 fL 6.3-10.7 [facility] Platelets Auto (Bld) [#/Vol] Ordered By: OUTREACH [facility] on 04-28-2023 Platelets (Bld) [#/Vol] 236 10*3/uL 150-450 [facility] Potassium [Moles/volume] in Serum or PlasmaOrdered By: OUTREACH [facility] on 04-28-2023 Potassium [Moles/Vol] 3.7 mmol/L 3.5-5.1 [facility] Protein [Mass/volume] in Ser um or PlasmaOrdered By: OUTREACH [facility] on 04-28-2023 Protein [Mass/Vol] 7.5 g/dL 6.4-8.9 [facility] RBC Auto (Bld) [#/Vol]Ordere d By: OUTREACH COMMUNITY on 04-28-2023 RBC (Bld) [#/Vol] 4.04 10*6/uL 3.60-5.00 [facility] Serum or plasma anion gap de terminationOrdered By: OUTREACH COMMUNITY on 04-28-2023 Anion gap [Moles/Vol] 11.6 mmol/L 6.0-15.0 [facility] Serum or plasma high density lipoprotein (HDL) cholesterol measurementOrdered By: OUTREACH COMMUNITY on 04-28-2023 Cholesterol in HDL [Mass/Vol] 68 mg/dL 23- [facility] Comment on above: HDL CHOL ATP-III CLA SSIFICATION Cardiovascular RiskHDL > or equal to 60 mg/dL LOWHDL < 40 mg/dL HIGH Serum or plasma total choles terol/high density lipoprotein (HDL) cholesterol mass ratOrdered By: OUTREACH COMMUNITY on 04-28-2023 Cholesterol.total/Lili sterol in HDL [Mass ratio] 4.0 {ratio} <5.0 [facility] Sodium [Moles/volume] in Ser um or PlasmaOrdered By: OUTREACH COMMUNITY on 04-28-2023 Sodium [Moles/Vol] 141 mmol/L 136-145 [facility] Triglyceride [Mass/volume] i n Serum or PlasmaOrdered By: OUTREACH COMMUNITY on 04-28-2023 Triglyceride [Mass/Vol] 80 mg/dL 0-149 [facility] Comment on above: TRIG ATP III CLASSIF ICATIONTRIG less than 150 mg/dL NormalTRIG 150-199 mg/dL Borderline highTRIG 200-500 mg/dL High TRIG greater than 500 mg/dL Very highStandard traceable to the Center for Disease Conrtrol and Prevention (CDC) test method. Urea nitrogen [Mass/volume] in Serum or PlasmaOrdered By: OUTREACH COMMUNITY on 04-28-2023 Urea nitrogen [Mass/Vol] 20 mg/dL 7-25 [facility] MM screening mammo BI w/CADo n 10-05-2022 MM screening mammo BI w/CAD [facility] [place] [address] Mammography Report Signed Patient: Jessica Perez MR#: [id number] : 1960 Acct:[id number] Age/Sex: 62 / F ADM Date: 10/05/22 Loc: [place] Room: Type: [facility] Attending Dr: Zayra Salcido DO Copies to: [...] Teresa Jones M.D.10/05/2022 4:06 PM Dictation Location: [facility] Transcribed By: [facility] 10/05/22 1606 Dictated By: Teresa Jones MD 10/05/22 1603 Signed By: 10/05/22 1606 [place] Urine Cultureon 07-21-2022 Bacteria identified Cx Nom (U) Reason for Exam Post-menopausal bleeding;Hematuria, unspecified type No Growth 2 Days PERFORMED BY: [place] [address] PATHOLOGIST BOAT OPERATOR DEON KLINE M.D. [place] Comment on above: Performed By: #### C UU #### [address] Urine culture routineOrdered By: ZAYRA SALCIDO on 07-21-2022 Bacteria identified Cx Nom (U) No Growth 2 Days [facility] SARS-CoV-2 (COVID-19) RNA NA A+probe Ql (Resp)on 02-13-2022 SARS-CoV-2 (COVID-19) RNA LAYO+probe Ql (Unsp spec) Positive [facility] Other COVID Quick Testingon 2021 Result Negative [facility] Other Encounters Encounter Date Encounter Type Care Provider Facility Start: 04-28-2023 End: 04-28-2023 ambulatory Isai Oropeza Facility:[facility] Start: 04-28-2023 End: 04-28-2023 ambulatory MD Isai Oropeza Work Phone: [facility] Work Phone: Start: 04-28-2023 End: 04-28-2023 Departed Referred MD Isai Oropeza Work Phone: [facility] Work Phone: Start: 10-05-2022 End: 10-05-2022 ambulatory Zayra Nataprawira Facility:[facility] Start: 10-05-2022 End: 10-05-2022 ambulatory MD Isai Oropeza Work Phone: [facility] Work Phone: Start: 10-05-2022 End: 10-05-2022 Patient encounter procedure MD Isai Oropeza Work Phone: [facility] Work Phone: Start: 07-21-2022 End: 07-21-2022 ambulatory Zayra Nataprawira Facility:[facility] Start: 07-21-2022 End: 07-21-2022 ambulatory DO Zayra Nataprawira Work Phone: [facility] Work Phone: Start: 07-21-2022 End: 07-21-2022 Departed Referred DO Zayra Nataprawira Work Phone: [facility] [place] Work Phone: Start: 02-13-2022 End: 02-13-2022 ambulatory Quynh Pineda Other [employer] Other Start: 02-13-2022 Office outpatient visit 5 minutes Quynh Pineda [facility] Start: 10-13-[address] ISAI OROPEZA Facility : Start: 08-30-2021 End: 08-30-2021 ambulatory Beti Cole Other [employer] Other Start: 08-30-2021 Office outpatient visit 5 minutes Beti Cole [facility] Procedures Date Procedure Procedure Detail Performing Clinician Start: 10-05-2022 Screening mammograph y of bilateral breasts MD Isai Oropeza Work Phone: Start: 07-21-2022 Urine culture MD Nabeel Oropeza Work Phone: Plan of Treatment Date Care Activity Detail Author Start: 07-21-2022 Bacteria identified in Urine by Culture [facility] Immunizations Immunization Date Immunization Notes Care Provider Fa cility 07-02-2020 COVID-19 mRNA-1273 (Moderna) DO Zayra Nataprawira Work Phone: [facility] 06-04-2020 COVID-19 mRNA-1273 (Moderna) DO Zayra Nataprawira Work Phone: [facility] Payers Date Payer Category Payer Unknown [id number] 1960 Self-pay 1960 Unknown [id number] 93 Unknown [id number] 31 Unknown [id number] 31 Unknown [id number] 31 Worker's Compensation [facility] [id number] Social History Date Type Detail Facility Sex Assigned At [facility] [employer] Other Start: 1960 Sex Assigned At Female F [facility] Evaluation note 02-13-2022 Note Date & Type Note Facility 02-13-2022 Evaluation note Encounter Date Diagnosis Assessment Notes Jan, Contact with and (suspected) exposure to other viral communicable diseases (ICD-10 - Z20.828) [facility] [employer] Other Evaluation note 08-30-2021 Note Date & [...] Patient care instructions given in writting by [facility] Care At Home document. [facility] [employer] [facility] Other Evaluation note Note Date & Type Note Facility Evaluation note No assessment information availa [facility] Work Phone: History general Narrative - Reported Note Date & Type Note Facility History general Narrative - Reported Type Surgical History bunion 1974 Hospitalization History see above [facility] [employer] [facility] Other Summary Purpose Family History No Family [...] DATE CREATED AUTHOR AUTHOR'S ORGANIZ ATION 04/30/2023 [facility] REASON FOR VISIT (unrecogniz ed section and content) [employer], [employer] EM[employer]OYEE PCR, POSITIVE HOME TEST Care Teams [...] BE BASED ON THE PRIMARY CLINICAL RECORDS. [employer] [facility]. provides no warranty or guarantee of the accuracy or completeness of information in this document.
== END 2023-07-20 11:22 | disposition home or self-care (01) ==
LOC: US 11:21
PROVIDERS: PCP Family Medicine; Visit Provider Family Medicine
DX: I82.402 Acute embolism and thrombosis of unspecified deep veins of left lower extremity (principal)
CPT/HCPCS: 93971

== ENCOUNTER 2024-03-11 09:03 | Outpatient (OUT) | payer OTHER, SELFPAY ==
--- NOTE | 2024-03-11 | XR_ITS ---
[address] [address] Patient Name: TELMA GUZMAN MRN: [id number] date: 1960 Sex: F Assigned Patient Location: [facility] Current Patient Location: [facility] Accession/Order Number: [id number] Exam Date: 03/11/2024 09:11 Report Date: 03/11/2024 14:14 At the request of: LIUDMILA OSBORNE Procedure: XR foot CHARLEY min 3V EXAMINATION: XR foot CHARLEY min 3V HISTORY: BILATERAL FOOT PAIN COMPARISON: No relevant comparison available. FINDINGS: RIGHT FINDINGS: BONES: No acute fracture or dislocation. Severe hallux valgus with first metatarsal-phalangeal joint osteoarthritis. Mild enthesopathic spurring of the calcaneus SOFT TISSUES: Negative. No visible soft tissue swelling. OTHER: Negative. LEFT FINDINGS: BONES: No acute fracture or dislocation. There is medial subluxation of the first proximal phalanx in relation to the first metatarsal. Moderate degenerative change first metatarsal-phalangeal joint. Mild enthesopathic spurring of the calcaneus SOFT TISSUES: Negative. No visible soft tissue swelling. OTHER: Negative. 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
--- OUTSIDE RECORDS SUMMARY | 2024-03-11 09:24 | XMS_ITS | CCD ---
Author Organization [facility] Care Team Providers Care Mailroom Supervisor Name Role Phone DR ISAI WILKS Admitting Unavailable DR ISAI WILKS Attending Unavailable DouglasBeti Unavailable EdwinQuynh Unavailable DO Zayra Salcido Attending Provider DO Zayra Salcido Attending Provider MD Isai Wilks Primary Care Provider MD Isai Wilks Primary Care Provider Community, Outreach Attending Provider Community, Outreach Admitting Unavailable Community, Outreach Attending Unavailable Isai Wilks Primary Care Unavailable Isai Wilks Primary Care Unavailable Bonnie Hernandez Admitting Unavailable Bonnie Hernandez Attending Unavailable MD Isai Wilks Primary Care Provider MD Bonnie Hernandez Attending Provider Medications Current Medications Medication Drug Class(es) Dates [...] _insert Vaginal Every Sunday Active estrogens, conjugated (fdc) 0.625 mg/ml vaginal cream (6 sources) Estrogen Start: 06-24-2018 apply 0.625 mg topically once daily Conjugated Estrogens Active 0.625 MG TOPICAL Daily June 24, 2018 1:00am Premarin As Dire cted Active olopatadine (1 [...] day for 1 day(s) May, Active Problems Problem Classification Problem Date Documented Date Episodic/Chronic Immunizations and screening for infectious disease (3 sources) Encounter for screening for other viral diseases; Translations: [Contact with and (suspected) exposure to other viral communicable diseases] Onset: 08-30-2021 Resolved: 02-13-2022 Episodic Osteoarthritis (4 sources) Arthritis of first carpometacarpal joint of left hand; Translations: [Unilateral primary osteoarthritis of first carpometacarpal joint, left hand] 03-04-2024 Chronic Other and unspecified benign neoplasm (5 sources) History of polyp of colon; Translations: [Personal history of colonic polyps] 06-26-2018 Episodic Other connective tissue disease (1 source) Pain in right hand; Translations: [Pain in right hand] Onset: 03-04-2024 Episodic Other connective tissue disease (2 sources) Hand pain; Translations: [Pain in right hand] 03-03-2024 Episodic Other connective tissue disease (2 sources) Triggering of digit; Translations: [Trigger finger, right ring finger] 03-04-2024 Episodic Other connective tissue disease (2 sources) Trigger finger, right ring finger; Translations: [Trigger finger (acquired)] 03-04-2024 Episodic Other non-traumatic joint disorders (1 source) Pain in right wrist; Translations: [Pain in right wrist] Onset: 03-04-2024 Episodic Other non-traumatic joint disorders (2 sources) Pain in wrist; Translations: [Pain in right wrist] 03-03-2024 Episodic Results Test Name Value Interpretation Reference Range Facility XR hand RT min 3V*on 024 XR hand RT min 3V* [facility] [address] [place] [id number] XRay Report Signed Patient: Jessica Perez MR#: [id number] : 1960 Acct:[id number] Age/Sex: 63 / F ADM Date: 03/04/24 [place] [facility] [place] Type: [facility] Attending Dr: Bonnie Hernandez MD Copies to: Bonnie Hernandez MD Ordering Provider: Bonnie Hernandez MD Date of Service: 03/04/24 XR/XR hand RT min 3V*: M79.641 - Pain in right hand 4 views right hand plain film COMPARISON: None HISTORY: Right hand wrist pain. ACUTE FINDINGS: None DEGENERATIVE CHANGE: Mild first carpometacarpal degeneration SOFT TISSUE FINDINGS: Unremarkable JOINT EFFUSION: None POSTOP CHANGES: None BONY MINERALIZATION: Adequate XR/XR hand RT min 3V* IMPRESSION: Mild degeneration. Impression dictated by: Da Mendez M.D.03/04/2024 4:03 PM Dictation Location: [facility]-- Transcribed By: [facility] 03/04/24 1603 Dictated By: Da Mendez DO 03/04/24 1600 Signed By: 03/04/24 1603 Normal [facility] Alanine aminotransferase [En zymatic activity/volume] in Serum or PlasmaOrdered By: OUTREACH COMMUNITY on 04-28-2023 ALT [Catalytic activity/Vol] 11 U/L Normal 7- [facility] Comment on above: Performed By: #### C BCNOBRENDAACH, SEPIDEH LIPID, OUTREACH CMP #### [facility] [address] [place] [id number] [facility] Albumin [Mass/volume] in Ser um or Plasma by Bromocresol green (BCG) dye binding methoOrdered By: OUTREACH COMMUNITY on 04-28-2023 Albumin BCG dye [Mass/Vol] 4.2 g/dL 3.5-5.7 [facility] Alkaline phosphatase [Enzyma tic activity/volume] in Serum or PlasmaOrdered By: OUTREACH COMMUNITY on 04-28-2023 ALP [Catalytic activity/Vol] 66 U/L Normal 34-104 [facility] Comment on above: Performed By: #### C BCNOPERFECTOREACH, OUTREACH LIPID, OUTREACH CMP #### [facility] [address] Aspartate aminotransferase [ Enzymatic activity/volume] in Serum or PlasmaOrdered By: [facility] on 04-28-2023 AST [Catalytic activity/Vol] 14 U/L Normal 13-39 [facility] Comment on above: Performed By: #### C BCNOOUTREACH, OUTREACH LIPID, OUTREACH CMP #### [address] Bilirubin.total [Mass/volume ] in Serum or PlasmaOrdered By: [facility] on 04-28-2023 Bilirubin [Mass/Vol] 1.3 mg/dL High 0.3-1.0 [facility] Comment on above: Samples from patient s who have taken Naproxen have shown spurious elevation in Total Bilirubin levels. A metabolite of Naproxen, O-desmethylnaproxen, has been shown to interfere with the Jendrassik-Grof method for measuring Total Bilirubin. Result Comment[facility] who have [facility]en have shown spurious elevation in Total Bilirubin levels. A metabolite of Naproxen, O-desmethylnaproxen, has been shown to interfere with the Jendrassik-Grof method for measuring Total Bilirubin. Performed By: #### C BCAMPAROREACH, OUTREACH LIPID, OUTREACH CMP #### [address] CBC Without Differentialon 1 06-29-2022 Mean Corpuscular HGB Conc 33.3 g/dL Normal 32.0-35.0 [facility] Comment on above: Performed By: #### C BCNOOUTREACH, OUTREACH LIPID, OUTREACH CMP #### [address] WBC (Bld) [#/Vol] 7.4 10*3/uL Normal 3.8-11.6 [facility] Comment on above: Performed By: #### C BCNOOUTREACH, OUTREACH LIPID, OUTREACH CMP #### [facility] [address] [place] [id number] [place] CMP Outreachon 04-28-2023 Albumin [Mass/Vol] 4.2 g/dL Normal 3.5-5.7 [facility] Comment on above: Performed By: #### C BCNOOUTREACH, OUTREACH LIPID, OUTREACH CMP #### [facility] [address] [place] [id number] [place] GFR/1.73 sq M.predicted MDRD (S/P/Bld) [Vol rate/Area] mL/min/{1.73_m2} Normal [facility] Comment on above: Performed By: #### C BCNOOUTREACH, OUTREACH LIPID, OUTREACH CMP #### [facility] [address] [place] [address] [place] Calcium [Mass/volume] in Ser um or PlasmaOrdered By: OUTREACH COMMUNITY on 04-28-2023 Calcium [Mass/Vol] 9.2 mg/dL Normal 8.6-10.3 [facility] Comment on above: Performed By: #### C BCNOOUTREACH, OUTREACH LIPID, OUTREACH CMP #### [facility] [address] [place] [address] [place] Carbon dioxide, total [Moles /volume] in Serum or PlasmaOrdered By: OUTREACH COMMUNITY on 04-28-2023 CO2 [Moles/Vol] 28.1 mmol/L Normal 21.0-31.0 [facility] Comment on above: Performed By: #### C BCNOOUTREACH, OUTREACH LIPID, OUTREACH CMP #### [facility] [address] [place] [id number] [place] Chloride [Moles/volume] in S tootie or PlasmaOrdered By: OUTREACH COMMUNITY on 04-28-2023 Chloride [Moles/Vol] 105 mmol/L Normal 98-107 [facility] Comment on above: Performed By: #### C BCNOOUTREACH, OUTREACH LIPID, OUTREACH CMP #### [facility] [address] [place] [id number] [place] Cholesterol [Mass/volume] in Serum or PlasmaOrdered By: OUTREACH COMMUNITY on 04-28-2023 Cholesterol [Mass/Vol] 270 mg/dL High 140-200 [facility] Comment on above: Chol less than 200 m g/dl low riskChol 201-239 mg/dl borderline riskChol 240 mg/dl and greater high risk Result Comment: Chol less than 200 mg/dl low risk Chol 201-239 mg/dl borderline risk Chol 240 mg/dl and greater high risk Performed By: #### C CHELLE, OUTREACH LIPID, OUTREACH CMP #### [facility] [address] Cholesterol in LDL Calc [Mas s/Vol]Ordered By: OUTREACH COMMUNITY on 04-28-2023 Cholesterol in LDL [Mass/Vol] 186 mg/dL 0-100 [facility] Comment on above: LDL ATP III CLASSIFI CATIONLDL less than 100 mg/dL OptimalLDL 100-129 mg/dL Near or above optimalLDL 130-159 mg/dL Borderline highLDL 160-189 mg/dL HighLDL greater than 189 mg/dL Very high Cholesterol in VLDL Calc [Ma ss/Vol]Ordered By: OUTREACH COMMUNITY on 04-28-2023 Cholesterol in VLDL [Mass/Vol] 16 mg/dL [facility] Creatinine [Mass/volume] in Serum or PlasmaOrdered By: [facility] on 04-28-2023 Creatinine [Mass/Vol] 0.78 mg/dL Normal 0.60-1.20 [facility] Comment on above: Performed By: #### C CHELLE, OUTREACH LIPID, OUTREACH CMP #### [facility] [address] Erythrocyte distribution wid th [Ratio] by Automated countOrdered By: OUTREACH COMMUNITY on 04-28-2023 Erythrocyte distribution width (RBC) [Ratio] 13.6 % Normal 11.9-15.3 [facility] Comment on above: Performed By: #### C CHELLE, OUTREACH LIPID, OUTREACH CMP #### [facility] [address] [place] [address] [place] Erythrocytes [#/volume] in B lood by Automated countOrdered By: OUTREACH COMMUNITY on 04-28-2023 RBC (Bld) [#/Vol] 4.04 10*6/uL Normal 3.60-5.00 [facility] Comment on above: Performed By: #### C BCNOOUTRESE, [facility] LIPID, OUTREACH CMP #### [facility] [address] [place] [address] [place] Glucose [Mass/volume] in Ser um or PlasmaOrdered By: [facility] on 04-28-2023 Glucose [Mass/Vol] 92 mg/dL Normal 70-100 [facility] Comment on above: ADA recommended refe rence rangeRandom Glucose Reference Range is dependent on time and content of last meal. Glucose of more than 200 mg/dL in a nonstressed, ambulatory subject supports the diagnosis of Diabetes Mellitus. Result Comment: [place] om Glucose Reference Range is dependent on time and content of last meal. Glucose of more than 200 mg/dL in a nonstressed, ambulatory subject supports the diagnosis of Diabetes Mellitus. ADA recommended reference range Performed By: #### C ALMITARESE, [facility] LIPID, OUTREACH CMP #### [facility] [address] [place] [address] [place] Hematocrit [Volume Fraction] of Blood by Automated countOrdered By: [facility] on 04-28-2023 Hematocrit (Bld) [Volume fraction] 36.4 % Normal 34.0-46.4 [facility] Comment on above: Performed By: #### C ALMITASE, [facility] LIPID, OUTREACH CMP #### [facility] [address] [place] [id number] [facility] Hemoglobin [Mass/volume] in BloodOrdered By: [facility] on 04-28-2023 Hemoglobin (Bld) [Mass/Vol] 12.1 g/dL Normal 11.8-15.4 [facility] Comment on above: Performed By: #### C BCNOOUTREACH, [facility] LIPID, OUTREACH CMP #### [facility] [address] [place] [phone] [place] Leukocytes [#/volume] correc armando for nucleated erythrocytes in Blood by Automated counOrdered By: [facility] on 04-28-2023 WBC corrected for nucl RBC Auto (Bld) [#/Vol] 7.4 10*3/uL 3.8-11.6 [facility] Lipid Profile Outreachon LDL Cholesterol,Calculated 186 mg/dL High 0-100 [facility] Comment on above: Result Comment: LDL ATP III CLASSIFICATION LDL less than 100 mg/dL Optimal LDL 100-129 mg/dL Near or above optimal LDL 130-159 mg/dL Borderline high LDL 160-189 mg/dL High LDL greater than 189 mg/dL Very high Performed By: #### C BCNOOUTREACH, OUTREACH LIPID, OUTREACH CMP #### [facility] [address] Triglyceride w/Reflex 80 mg/dL Normal 0-149 [facility] Comment on above: Result Comment: TRIG ATP III CLASSIFICATION TRIG less than 150 mg/dL Normal TRIG 150-199 mg/dL Borderline high TRIG 200-500 mg/dL High TRIG greater than 500 mg/dL Very high Standard traceable to the Center for Disease Conrtrol and Prevention (CDC) test method. Performed By: #### C BCNOOUTREACH, OUTREACH LIPID, OUTREACH CMP #### [address] VLDL CHOLESTEROL 16 mg/dL Normal [facility] Comment on above: Performed By: #### C BCNOOUTREACH, OUTREACH LIPID, OUTREACH CMP #### [facility] [address] MCH [Entitic mass] by Automa armando countOrdered By: OUTREACH COMMUNITY on 04-28-2023 MCH (RBC) [Entitic mass] 30.0 pg Normal 24.7-34.3 [facility] Comment on above: Performed By: #### C BCNOOUTREACH, OUTREACH LIPID, OUTREACH CMP #### [facility] [address] [place] [address] MCHC Auto (RBC) [Mass/Vol]Or dered By: OUTREACH COMMUNITY on 04-28-2023 MCHC (RBC) [Mass/Vol] 33.3 g/dL 32.0-35.0 [facility] MCV [Entitic volume] by Auto mated countOrdered By: OUTREACH COMMUNITY on 04-28-2023 MCV (RBC) [Entitic vol] 90.1 fL Normal 80-100 [facility] Comment on above: Performed By: #### C BCNOOUTREACH, OUTREACH LIPID, OUTREACH CMP #### [facility] [address] No Panel InformationOrdered By: OUTREACH [facility] on 04-28-2023 Estimated GFR (CKD-EPI) > 60.0 mL/Min [facility] Creatinine Clearance (Chem N/A [facility] Platelet mean volume [Entiti c volume] in Blood by Automated countOrdered By: [facility] on 04-28-2023 Platelet mean volume (Bld) [Entitic vol] 8.6 fL Normal 6.3-10.7 [facility] Comment on above: Result Comment: PERF ORMED BY: [place] [address] PATHOLOGIST TECHNICAL DOCUMENT WRITER DEON KLINE M.D. Performed By: #### C BCNOOUTREACH, OUTREACH LIPID, OUTREACH CMP #### [address] Platelets [#/volume] in Bloo d by Automated countOrdered By: [facility] on 04-28-2023 Platelets (Bld) [#/Vol] 236 10*3/uL Normal 150-450 [facility] Comment on above: Performed By: #### C BCNOOUTREACH, OUTREACH LIPID, OUTREACH CMP #### [facility] [address] [place] [address] [place] Potassium [Moles/volume] in Serum or PlasmaOrdered By: OUTREACH [facility] on 04-28-2023 Potassium [Moles/Vol] 3.7 mmol/L Normal 3.5-5.1 [facility] Comment on above: Performed By: #### C BCNOOUTREACH, OUTREACH LIPID, OUTREACH CMP #### [facility] [address] [place] [address] [place] Protein [Mass/volume] in Ser um or PlasmaOrdered By: OUTREACH [facility] on 04-28-2023 Protein [Mass/Vol] 7.5 g/dL Normal 6.4-8.9 [facility] Comment on above: Performed By: #### C BCNOOUTREACH, OUTREACH LIPID, OUTREACH CMP #### [facility] [address] [place] [address] [place] Serum or plasma anion gap de terminationOrdered By: OUTREACH COMMUNITY on 04-28-2023 Anion gap [Moles/Vol] 11.6 mmol/L Normal 6.0-15.0 [facility] Comment on above: Performed By: #### C ALMITARESE, OUTREACH LIPID, OUTREACH CMP #### [facility] [address] Serum or plasma high density lipoprotein (HDL) cholesterol measurementOrdered By: OUTREACH COMMUNITY on 04-28-2023 Cholesterol in HDL [Mass/Vol] 68 mg/dL Normal 23-92 [facility] Comment on above: HDL CHOL ATP-III CLA SSIFICATION Cardiovascular RiskHDL > or equal to 60 mg/dL LOWHDL < 40 mg/dL HIGH Result Comment: HDL CHOL ATP-III CLASSIFICATION Cardiovascular Risk HDL > or equal to 60 mg/dL LOW HDL < 40 mg/dL HIGH Performed By: #### C BCNOOUTRESE, OUTREACH LIPID, OUTREACH CMP #### [address] Serum or plasma total choles terol/high density lipoprotein (HDL) cholesterol mass ratOrdered By: OUTREACH COMMUNITY on 04-28-2023 Cholesterol.total/Lili sterol in HDL [Mass ratio] 4.0 {ratio} Normal <5.0 [facility] Comment on above: Result Comment: PERF ORMED BY: [place] [address] PATHOLOGIST TECHNICAL DOCUMENT WRITER DEON KLINE M.D. Performed By: #### C BCAMPARORESE, OUTREACH LIPID, OUTREACH CMP #### [address] Sodium [Moles/volume] in Ser um or PlasmaOrdered By: OUTREACH COMMUNITY on 04-28-2023 Sodium [Moles/Vol] 141 mmol/L Normal 136-145 [facility] Comment on above: Performed By: #### C BCNOOUTRESE, OUTREACH LIPID, OUTREACH CMP #### [address] Triglyceride [Mass/volume] i n Serum or PlasmaOrdered By: OUTREACH COMMUNITY on 04-28-2023 Triglyceride [Mass/Vol] 80 mg/dL 0-149 [facility] Comment on above: TRIG ATP III CLASSIF ICATIONTRIG less than 150 mg/dL NormalTRIG 150-199 mg/dL Borderline highTRIG 200-500 mg/dL High TRIG greater than 500 mg/dL Very highStandard traceable to the Center for Disease Conrtrol and Prevention (CDC) test method. Urea nitrogen [Mass/volume] in Serum or PlasmaOrdered By: OUTREACH COMMUNITY on 04-28-2023 Urea nitrogen [Mass/Vol] 20 mg/dL Normal 7-25 [facility] Comment on above: Performed By: #### C BCNOOUTREACH, OUTREACH LIPID, OUTREACH CMP #### [facility] [address] Urine culture routineOrdered By: ZAYRA SALCIDO on 07-21-2022 Bacteria identified Cx Nom (U) No Growth 2 Days [facility] SARS-CoV-2 (COVID-19) RNA NA A+probe Ql (Resp)on 02-13-2022 SARS-CoV-2 (COVID-19) RNA LAYO+probe Ql (Unsp spec) Positive [facility] Other COVID Quick Testingon 2021 Result Negative Via[facility] [employer] Other Encounters Encounter Date Encounter Type Care Provider Facility Start: 03-04-2024 End: 03-04-2024 ambulatory MD Isai Wilks Work Phone: [facility] Work Phone: Start: 03-04-2024 End: 03-04-2024 Patient encounter procedure MD Isai Wilks Work Phone: [facility] Work Phone: Start: 03-04-2024 End: 03-04-2024 Patient encounter procedure MD Isai Wilks Work Phone: [facility] Start: 03-04-2024 End: 03-04-2024 ambulatory Isai Wilks Facility:[facility] Start: 04-28-2023 End: 04-28-2023 Departed Referred MD Isai Wilks Work Phone: [facility] Work Phone: Start: 04-28-2023 End: 04-28-2023 ambulatory MD Isai Wilks Work Phone: [facility] Work Phone: Start: 10-05-2022 End: 10-05-2022 ambulatory MD Isai Wilks Work Phone: [facility] Work Phone: Start: 10-05-2022 End: 10-05-2022 Patient encounter procedure MD Isai Wilks Work Phone: [facility] Work Phone: Start: 07-21-2022 End: 07-21-2022 ambulatory DO Zayra Nataprkeishara Work Phone: [facility] Work Phone: Start: 07-21-2022 End: 07-21-2022 Departed Referred DO Zayra Nataprawira Work Phone: [facility] [place] Work Phone: Start: 02-13-2022 End: 02-13-2022 ambulatory Quynh Pineda Other [facility] Other Start: 02-13-2022 Office outpatient visit 5 minutes Quynh Pineda [facility] Start: 10-13-[address] ISAI WILKS Facility :[facility] Start: 08-30-2021 End: 08-30-2021 ambulatory Beti Cole Other [facility] Other Start: 08-30-2021 Office outpatient visit 5 minutes Beti Cole [facility] Procedures Date Procedure Procedure Detail Performing Clinician Start: 03-04-2024 Plain X-ray of right hand MD Isai Wilks Work Phone: Start: 10-05-2022 Screening mammograph y of bilateral breasts MD Isai Wilks Work Phone: Start: 07-21-2022 Urine culture MD Nabeel Wilks Work Phone: Plan of Treatment Date Care Activity Detail Author Start: 03-04-2024 Plain X-ray of right hand XR hand RT min 3V* [facility] Start: 03-04-2024 XR Hand - right GE 3 Views [facility] Start: 07-21-2022 Bacteria identified in Urine by Culture [facility] Immunizations Immunization Date Immunization Notes Care Provider Fa cility 07-02-2020 COVID-19 mRNA-1273 (Moderna) DO Zayra Nataprawira Work Phone: [facility] 06-04-2020 COVID-19 mRNA-1273 (Moderna) DO Zayra Nataprawira Work Phone: [facility] Payers Date Payer Category Payer Unknown [id number] 1960 Self-pay 1960 Unknown [id number] Medicare Medicare [id number] Private Health Insurance [employer] [facility] PFFS 1 [id number] Unknown [id number] Unknown [id number] Worker's Compensation [facility] [place] [id number] Social History Date Type Detail Facility Sex Assigned At [facility] Other Start: 1960 Sex Assigned At Female [facility] Start: 09-14-2021 Tobacco smoking stat us SDIS Never smoked tobacco (finding) [facility] Evaluation note 02-13-2022 Note Date & Type Note Facility 02-13-2022 Evaluation note Encounter Date Diagnosis Assessment Notes Jan, Contact with and (suspected) exposure to other viral communicable diseases (ICD-10 - Z20.828) [facility] Other Evaluation note 08-30-2021 Note Date & [...] Patient care instructions given in writting by [facility] Care At Home document. [facility] Other Evaluation note Note Date & Type Note Facility Evaluation note No assessment information availa [facility] Work Phone: Evaluation note Note Date & Type Note Facility Evaluation note Diagnosis Onset Date Arthritis of carpometacarpal (CMC) joint of left thumb acute Trigger finger, right ring finger acute [facility] Work Phone: History general Narrative - Reported Note Date & Type Note Facility History general Narrative - Reported Type Surgical History bunion 1975 Hospitalization History see above [facility] Other Summary Purpose Family History Relationship Condition Age at Onset Recorded Date/T pako father Heart disease Unknown mother Malignant neoplasm Unknown sister Heart disease Unknown Advance Directives Advance Directive Response Recorded Date/ Time Advance Directives No January 12:13pm Advance Directive Response Recorded Date/ Time Advance Directives No January 1:13pm Chief Complaint and Reason for Visit Chief Complaint Post-menopausal blee ding;Hematuria, unspecified ty Chief Complaint n95.0 R31.9 Screening Chief Complaint complete Chief Complaint M79.641 - Pain in ri ght hand NEW RT HAND AND WRIST NX Reason for Visit Arthritis of carpome tacarpal (CMC) joint of left thumb Trigger finger, right ring finger Additional Source Comments INFORMATION SOURCE (unrecogn ized section and content) DATE CREATED AUTHOR 10/15/2021 [facility] DATE CREATED AUTHOR AUTHOR'S ORGANIZ ATION 03/06/2024 [facility] REASON FOR VISIT (unrecogniz ed section and content) [employer] [facility] [employer], [facility] [employer] [facility], POSITIVE HOME TEST Care Teams (unrecognized sec tion and content) Team Status: Active Member Role Status Deidra Wilks MD Primary Care Provider Active Team Status: Inactive Member Role Status Deidra Wilks MD Primary Care Provider Active Start: March 04, 2024 End: March 04, 2024 Bonnie Hernandez MD Attending Provider Active Start: March 04, 2024 End: March 04, 2024 Team Status: Active Member Role Status Deidra Wilks MD Primary Care Provider Active Team Status: Active Member Role Status Deidra Wilks MD Primary Care Provider Active Start: March 04, 2024 Bonnie Hernandez MD Attending Provider Active Start: March 04, 2024 Team Status: Inactive Member Role Status Deidra Wilks MD Primary Care Provider Active Start: March 04, 2024 End: March 04, 2024 Bonnie Hernandez MD Attending Provider Active Start: March 04, 2024 End: March 04, 2024 Team Status: Inactive Member Role Status Deidra Salcido DO Attending Provider Active Team Status: Inactive Member Role Status Deidra Salcido DO Attending Provider Active Isai Wilks MD Primary Care Provider Active Team Status: Inactive Member Role Status Deidra Wilks MD Primary Care Provider Active Outreach [facility] Attending Provider Active Goals (unrecognized section and [...] BE BASED ON THE PRIMARY CLINICAL RECORDS. [employer] [facility]. provides no warranty or guarantee of the accuracy or completeness of information in this document.
== END 2024-03-11 09:04 | disposition home or self-care (01) ==
LOC: RAD 09:03
PROVIDERS: PCP Family Medicine; Visit Provider Podiatrist Foot & Ankle Surgery
DX: M79.672 Pain in left foot (principal); M79.671 Pain in right foot; M20.11 Hallux valgus (acquired), right foot
CPT/HCPCS: 73630

== ENCOUNTER 2024-10-22 11:07 | Outpatient (OUT) | payer MEDICARE, SELFPAY ==
--- OUTSIDE RECORDS SUMMARY | 2024-07-08 05:16 | XMS_ITS ---
Author Organization The [facility] in [place] Address [address] [place] [address] Care Team Providers Care Merchandising Manager Name Role Phone Nicholas Wilks Primary Care Provider REASON FOR VISIT sleep study Encounters Encounter Location Date Provider Diagnosis [facility] [address] [facility] [place] [address] 07/08/2024 Nicholas Wilks Plan Of Treatment No Information Progress Notes * Jessica GUZMAN RDOB:[birth year] (64 yo F)Acc No.[id number]:07/08/2024 Patient: Abdi Jessica ROSSI :1960 A ge:64 Y S ex:Female Address:[address] [place] [address] * true * Date: Generated for Cubai criselda/Fakereng/eTransmitting on: 0 10/22/2024 11:10 AM EDT
--- OUTSIDE RECORDS SUMMARY | 2024-07-10 06:30 | XMS_ITS ---
Author Organization The [facility] in [place] Address [address] [place] [address] Care Team Providers Care Hand Crown Pouncer Name Role Phone Nicholas Wilks Primary Care Provider [phone] Allergies Allergen (clinical drug ingredient) Drug/Non Drug Allergy documented on EMR Reaction Allergy Type Onset Date Status guaifenesin Mucinex feels funny Drug Allergy Act roxana REASON FOR VISIT Face to Face for Cpap- needs sleep study Medications Medication SIG (Take, Route, Fr equency, Duration) Notes Start Date End Date Status Simvastatin 20 MG 1 tablet in the even ing Orally Once a day Active Aspirin 81 Active Social History Tobacco Use: Social History Observation Description Date Details (start date - stop date) Never Smoker NA - NA Tobacco Use/Smoking Question Answer Notes Patient is a nonsmoker Tobacco Control (Standard) Question Answer Notes Tobacco use: Nonsmoker AUDIT-C (Standard) Question Answer Notes Did you have a drink containing alcohol in the p ast year? No Points 0 Interpretation Negative Problems Problem Type SNOMED Code ICD Code Onset Dates Problem Status W/U Status Risk Notes Problem Snoring (85522089) Snoring (R06.83) Active confirmed Vital Signs Height 66.5 in 07/10/2024 Blood pressure systolic 132 mm Hg 07/10/19 25 Blood pressure diastolic 78 mm Hg 025 Procedures Procedure Date Ordered Date Performed Result Body Sit e Sleep study - Diagnostic Polysonogram 07/10/2024 N/A Encounters Encounter Location Date Provider Diagnosis [facility] Medicine [address] [place] [address] 07/10/2024 Nicholas Wilks Snoring R06.83 Assessments Encounter Date Diagnosis (ICD Code) Assessment Notes Treatment Notes Treatment Clinical Notes Section Notes 07/10/2024 Snoring (ICD-10 - R06.83) Plan Of Treatment Pending Test Test Name Order Date Sleep study - Diagnostic Polysonogram Progress Notes * Jessica GUZMAN RDOB:[birth year] (64 yo F)Acc No.[id number]:07/10/2024 Progress Note Patient: Jessica TUCKER Provider: Nilesh Wilks ([facility])MD :1960 A ge:64 Y S ex:Female Date:07/10/2024 Address:[address] [place], [place] [id number] Check In:10:33 AM ESTCheck O ut:11:11 AM EST Subjective: * Chief Complaints: * F flower to Face for Cpap- needs sleep study * HPI: D epression Screening: PHQ-2 (2015 Edition) L ittle interest or pleasure in doing things??Several days F eeling down, depressed, or hopeless? N ot at all T otal Score 1 loud snoring - pausses iwth breathign at hs some daytime fatigue. * ROS: E ENT: hearing changes d enies. v isual changes d enies.?non-healing mouth sores d enies. s wollen glands or neck lumps d enies. h oarseness d enies. s ore throat d enies. d ifficulty swallowing d enies. n ose bleeds d enies. n jame congestion d enies. e ar ache d enies. e ar discharge?denies. r inging in ears d enies. l ight sensitivity d enies. e ye pain d enies. b lurring d enies. e ye irritation d enies. d ouble vision d enies.?vision loss d enies. G eneral/Constitutional: Sweats: D enies. F atigue d enies. S leep problems d enies. A norexia d enies. M alaise d enies. W eight loss d enies.?Fatigue or Weakness d enies. F ever or Chills d enies. C ardiovascular: Shortness of Breath w/lying flat d enies. L ightheadedness/dizziness d enies. C hest tightness/ heavy pressure d enies. S welling of legs, ankles, or feet d enies. W aking up with shortness of breath d enies. C hest pain denies. P alpitations d enies. W eight gain d enies. R espiratory: Chronic or frequent cough d enies. C oughing up blood?denies. D ifficulty breathing d enies. P roductive cough d enies. S noring?denies. S hortness of breath that awakens from sleep (PND) d enies. C hest pain d enies. S putum production d enies. W heezing d enies. M usculoskeletal: Joint pain d enies. J oint Fluid d enies. B ack pain d enies. K nee pain d enies. N svitlana pain d enies. J oint Stiffness d enies. M uscle cramps d enies. W eakness of muscles d enies. A rthritis d enies. M uscle aches d enies. P ain in shoulder(s) d enies. S wollen joints d enies. * Active Problem List J21.9 Acute bronchiolitis Modified On:06/12/2023/U Status:confirmed M79.606 Leg pain Modified On:06/21/2023/U Status:confirmed M79.672 Left foot pain Modified On:03/06/2024U Status:confirmed M79.671 Right foot pain Modified On:03/06/2024U Status:confirmed I82.402 Left leg DVT Modified On:07/20/2023/U Status:confirmed M20.11 Hallux valgus (acqui red), right foot Modified On:03/11/2024/U Status:confirmed M20.41 Other hammer toe(s) (acquired), right foot Modified On:03/11/2024/U Status:confirmed M20.32 Hallux varus (acquir ed), left foot Modified On:03/11/2024W/U Status:confirmed R06.83 Snoring Modified On:07/10/2024W/U Status:confirmed * Medical History: * Surgical History: c olonscopy 06/26/2018left bunionectomy 1975Bunion * Hospitalization/Major Diagno stic Procedure: D enies Past Hospitalization * Family History: F ather: atrial fib, acute myocardial infarction, diagnosed with Unspecified essential hypertension, Unspecified heart disease. S ister(s): alive. D cris(s): alive. M other: diagnosed with Other malignant neoplasm of unspecified site. 2 sister(s) . 2 daughter(s) . . anesthesia problems - nausea/vomiting - family hx. * Social History: T obacco Use: T obacco Control (Standard) T obacco use: N onsmoker Tobacco Use/Smoking P atient is a n onsmoker D rug/Alcohol: A RASHAD-C (Standard) D id you have a drink containing alcohol in the past year? N o P oints 0 I nterpretation N egative * Medications: T akingAspirin 81 Simvastatin 20 MG Tablet 1 tablet in the evening Orally Once a day Taking Aspirin 81 Taking Simvastatin 20 MG Tablet 1 tablet in the evening Orally Once a day DiscontinuedEliquis(Apixaban) 5 MG Tablet as directed Orally Medication List reviewed and reconciled with the patientDiscontinued Eliquis(Apixaban) 5 MG Tablet as directed Orally Medication List reviewed and reconciled with the patient * Allergies: M ucinex: feels funny Objective: * Vitals: W t: Not Taken - Declined by Patient, Ht: 66.5 in, BP:132/78mm Hg, Ht-cm: 168.91 cm. * Examination: P hysical Exam: GENERAL: w ell developed, well nourished, in no acute distress. HEAD: n ormocephalic/atraumatic. EYES: p upils equal, round and reactive to light, conjunctivae and sclerae normal. EARS: n o deformity or lesion of external ear, canals and TM appear normal bilaterally, TM's intact, not inflamed with normal light reflex, hearing grossly normal to conversational speech. NOSE: n o deformity, discharge, inflammation, or lesions.? MOUTH: m ucous membranes moist, normal oropharynx and posterior pharynx without lesions or exudates, tongue normal, dentition normal. NECK: n svitlana supple, no masses or palpable cervical nodes, trachea midline, thyroid without nodules, masses, tenderness, or enlargement. CHEST: n o chest wall deformity, no chest wall tenderness.? LUNGS: n ormal respiratory effort and clear to auscultation, no wheezes, rales, or rhonchi, good air exchange. CARDIO: r egular rate and rhythm, normal S1 and S2, nor murmur, rub, or gallop. PULSES: n ormal capillary refill. ABDOMEN: s oft, non-distended, non-tender, no masses. MUSCULOSKELETAL: n o deformity or scoliosis noted, normal range of motion, joints normal, no erythema, edema, effusion, or ecchymosis. EXTREMITY: n o clubbing, cyanosis, edema, or deformity with normal ROM in both upper and lower bilateral extremities. NEUROLOGIC: g rossly normal. SKIN: n o rashes, ulcerations, or suspicious lesions. LYMPH NODES: n o cervical adenopathy, nodes normal. MENTAL STATUS: a lert and oriented x3, normal mood and affect. Assessment: * Assessment: 1. S noring - R06.83 (Primary) Plan: * Treatment: * Procedure Codes: * Preventive Medicine: Screenings/Counseling: B MS ACTION PLAN Above Normal BMI Follow-up D ietary management education, guidance, and counseling * * Sign off status: Completed Visit Status: C HK (Check Out) true * Provider: Nilesh Wilks ([facility])MD Date: 0 07/10/2024 Generated for Cubai criselda/Santhosh/eTransmitting on: 0 10/22/2024 11:10 AM EDT History and Physical Notes * HPI (History of Present Illness) Category Sub-Category Detail Notes Category Not es Depression Screening PHQ-2 (2015 Edition) Little interest or pleasure in doing things?: Several days loud snoring - pausses iwth breathign at hs some daytime fatigue Feeling down, depressed, or hopeless?: N ot at all Total Score: 1 Examination Category Sub-Category Detail Notes Category Not es Physical Exam GENERAL: well developed, well nourished, in no acute distress HEAD: normocephalic/atraum atic EYES: pupils equal, round and reactive to light, conjunctivae and sclerae normal EARS: no deformity or lesi on of external ear, canals and TM appear normal bilaterally, TM's intact, not inflamed with normal light reflex, hearing grossly normal to conversational speech NOSE: no deformity, discha rge, inflammation, or lesions MOUTH: mucous membranes jacobo st, normal oropharynx and posterior pharynx without lesions or exudates, tongue normal, dentition normal NECK: neck supple, no mass es or palpable cervical nodes, trachea midline, thyroid without nodules, masses, tenderness, or enlargement CHEST: no chest wall deform ity, no chest wall tenderness LUNGS: normal respiratory e ffort and clear to auscultation, no wheezes, rales, or rhonchi, good air exchange CARDIO: regular rate and rhy thm, normal S1 and S2, nor murmur, rub, or gallop PULSES: normal capillary ref ill ABDOMEN: soft, non-distended, non-tender, no masses RECTAL: MUSCULOSKELETAL: no deformity or scol iosis noted, normal range of motion, joints normal, no erythema, edema, effusion, or ecchymosis EXTREMITY: no clubbing, cyanosi s, edema, or deformity with normal ROM in both upper and lower bilateral extremities NEUROLOGIC: grossly normal SKIN: no rashes, ulceratio ns, or suspicious lesions LYMPH NODES: no cervical adenopat hy, nodes normal MENTAL STATUS: alert and oriented x 3, normal mood and affect
--- OUTSIDE RECORDS SUMMARY | 2024-10-13 13:45 | XMS_ITS ---
Author Organization The [facility] in [place] Address [address] [place] [address] Care Team Providers Care Electrifier Operator Name Role Phone Nicholas Wilks Primary Care Provider [phone] Allergies Allergen (clinical drug ingredient) Drug/Non Drug Allergy documented on EMR Reaction Allergy Type Onset Date Status guaifenesin Mucinex feels funny Drug Allergy Act roxana REASON FOR VISIT cough - ongoing for the past 4 weeks, In the evenings feels like she cant swallow- feels like muscle more on the left side and moves up into the ear- colored drainage- light [place], Patient said she hasa fitting for her CPAP coming up Medications Medication SIG (Take, Route, Frequency, Duration) Notes Start Date End Date Status Aspirin 81 Active Amoxicillin-Pot Clavulanate 875-125 MG 1 tablet Orally every 12 hrs for 10 days 10/13/2024 Active Social History Tobacco Use: Social History Observation Description Date Details (start date - stop date) Never Smoker NA - NA Tobacco Use/Smoking Question Answer Notes Patient is a nonsmoker Tobacco Control (Standard) Question Answer Notes Tobacco use: Nonsmoker Problems Problem Type SNOMED Code ICD Code Onset Dates Problem Status W/U Status Risk Notes Problem Sleep apnea (G47.30) Active confirmed Vital Signs Height 66.5 in 10/13/2024 Blood pressure systolic 126 mm Hg 10/14/19 25 Blood pressure diastolic 78 mm Hg 025 Temperature 98.3 degrees Fahrenheit 10/14/19 25 Procedures Procedure Date Ordered Date Performed Result Body Sit e CARDIO Stress Test - Cardiolite 10/13/2024 N/A Encounters Encounter Location Date Provider Diagnosis [facility] [address] [place] [address] 10/13/2024 Nicholas Wilks Acute non-recurrent sinusitis, unspecified location J01.90 ; Nasal congestion R09.81 and Chest pain R07.9 Assessments Encounter Date Diagnosis (ICD Code) Assessment Notes Treatment Notes Treatment Clinical Notes Section Notes 10/13/2024 Acute non-recurrent sinusitis, unspecified location (ICD-10 - J01.90) Rest and drink more liquids, especially water. You may use a humidifier or vaporizer to help keep the drainage moist. Ijbt-uoc-opcncli Nasal Saline may help the stuffy and runny nose. Use Ibuprofen and or Tylenol as needed for fever, chills, body aches or pain. Children 5 years old should not be given rrkp-faq-jvghbyo cough and cold medications such as guaifenesin and dextromethorphan. If you're over age 5, you may try fajp-amg-njgyxnu cold medications such as guaifenesin and dextromethorphan, or multi-symptom cold reliever such as Dayquil to help reduce the symptoms. Antibiotics have been prescribed. You should take these until completed and follow the directions. Antibiotics can sometimes cause upset stomach, and in rare cases, serious allergic reactions or serious gastrointestinal problems. If you start having severe abdominal pain, severe vomiting, or bloody diarrhea, you should be reevaluated by your physician or urgent care immediately. Follow up with your Primary Care Provider or return to clinic if symptoms do not improve within 3-5 days 10/13/2024 Nasal congestion (ICD-10 - R09.81) 10/13/2024 Chest pain (ICD-10 - R07.9) Plan Of Treatment Medication Medication Name Sig Start Date Stop Date Notes Amoxicillin-Pot Clavulanate 875-125 MG 1 tablet Orally every 12 hrs for 10 days 10/13/2024 Treatment Notes Assessment Notes Acute non-recurrent sinusiti s, unspecified location Rest and drink more liquids, especially water. You may use a humidifier or vaporizer to help keep the drainage moist. Ckhj-cbz-agazcwx Nasal Saline may help the stuffy and runny nose. Use Ibuprofen and or Tylenol as needed for fever, chills, body aches or pain. Children 5 years old should not be given tghc-jgj-qcduhoy cough and cold medications such as guaifenesin and dextromethorphan. If you're over age 5, you may try dfvb-qpg-qcvggco cold medications such as guaifenesin and dextromethorphan, or multi-symptom cold reliever such as Dayquil to help reduce the symptoms. Antibiotics have been prescribed. You should take these until completed and follow the directions. Antibiotics can sometimes cause upset stomach, and in rare cases, serious allergic reactions or serious gastrointestinal problems. If you start having severe abdominal pain, severe vomiting, or bloody diarrhea, you should be reevaluated by your physician or urgent care immediately. Follow up with your Primary Care Provider or return to clinic if symptoms do not improve within 3-5 days Pending Test Test Name Order Date CARDIO Stress Test - Cardiolite 10/14/19 25 Next Appt Details Follow Up: 3-5 days if not i mproving, Reason: Progress Notes * Jessica GUZMAN RDOB:[birth year] (64 yo F)Acc No.[id number]:10/13/2024 Progress Note Patient: Jessica TUCKER Provider: Nilesh Wilks ([facility])MD :1960 A ge:64 Y S ex:Female Date:10/13/2024 Address:[address] [place], [place] [id number] Check In:05:48 PM ESTCheck O ut:06:47 PM EST Subjective: * Chief Complaints: * C ough - ongoing for the past 4 weeksIn the evenings feels like she cant swallow- feels like muscle more on the left side and moves up into the ear- colored drainage- light tanPatient said she has a fitting for her CPAP coming up * HPI: G eneral: Sore throat at hs and pain up into ear some cough - productive cough disucsse allergies. S inusitis: The patient complains of symptoms of sinus infection. The symptoms have been present for 1-2 days. The symptoms are moderate. Symptomatic treatment has included OTC medication. Associated symptoms include headache, facial pain, runny nose, nasal congestion. * ROS: S kin: Rash d enies. E NT: Comments S [facility] for details. C ardiovascular: Edema d enies. P alpitations d enies. ? R espiratory: Chest pain d enies. C ough d enies. W heezing?denies. G astrointestinal: Abdominal pain d enies. N ausea d enies. V omiting d enies. * Active Problem List J21.9 Acute bronchiolitis Modified On:06/12/2023U Status:confirmed M79.606 Leg pain Modified On:06/21/2023U Status:confirmed M79.672 Left foot pain Modified On:03/06/2024 Status:confirmed M79.671 Right foot pain Modified On:03/06/2024 Status:confirmed I82.402 Left leg DVT Modified On:07/20/2023 Status:confirmed M20.11 Hallux valgus (acqui red), right foot Modified On:03/11/2024U Status:confirmed M20.41 Other hammer toe(s) (acquired), right foot Modified On:03/11/2024U Status:confirmed M20.32 Hallux varus (acquir ed), left foot Modified On:03/11/2024 Status:confirmed R06.83 Snoring Modified On:07/10/2024 Status:confirmed G47.30 Sleep apnea Modified On:10/13/2024 Status:confirmed * Medical History: * Surgical History: [...] Use/Smoking P atient is a n onsmoker * Medications: T akingAspirin 81 Taking Aspirin 81 DiscontinuedSimvastatin 20 MG Tablet 1 tablet in the evening Orally Once a day Medication List reviewed and reconciled with the patientDiscontinued Simvastatin 20 MG Tablet 1 tablet in the evening Orally Once a day Medication List reviewed and reconciled with the patient * Allergies: M ucinex: feels funny - Allergyno[Allergies Verified] Objective: * Vitals: W t: Not Taken - Declined by Patient, Ht: 66.5 in, BP:126/78mm Hg, Temp:98.3F, Ht- cm: 168.91 cm. * Examination: G eneral Examination: GENERAL APPEARANCE: in no acute distress, well developed, well nourished. ENT: ear and nose external appearance normal, tympanic membranes clear bilaterally, facial tenderness to palpation over sinuses. EYES: pupils equal, round, reactive to light and accomodations. ORAL CAVITY: mucosa moist. NECK: n svitlana supple, full range of motion, no cervical lymphadenopathy. LUNGS: c lear to auscultation bilaterally. CARDIO: no murmurs, regular rate and rhythm, S1, S2 normal. ABDOMEN: soft, nontender , not distended, bowel sounds are active. SKIN: no suspicious lesions, warm and dry. EXTREMITIES: no clubbing, cyanosis, or edema. NEUROLOGIC: nonfocal, motor strength of upper/lower extremities intact , sensory exam intact. Assessment: * Assessment: 1. A cute non-recurrent sinusitis, unspecified location - J01.90 (Primary) 2 .?Nasal congestion - R09.81 3 . C hest pain - R07.9 Plan: * Treatment: 2. C hest pain P rocedure: CARDIO Stress Test - Cardiolite * Procedure Codes: * Follow Up: 3 -5 days if not improving * * Sign off status: Completed Visit Status: C HK (Check Out) true * Provider: Nilesh Wilks ([facility])MD Date: 10/13/2024 Generated for Michelle aburto/Santhosh/eTransmitting on: 10/22/2024 11:11 AM EDT History and Physical Notes * HPI (History of Present Illness) Category Sub-Category Detail Notes Category Not es General Sore throat at hs and pain up into ear some cough - productive cough disucsse allergies Examination Category Sub-Category Detail Notes Category Not es General Examination GENERAL APPEARANCE: in no ac katelin distress, well developed, well nourished ENT: ear and nose externa l appearance normal, tympanic membranes clear bilaterally, facial tenderness to palpation over sinuses EYES: pupils equal, round, reactive to light and accomodations NECK: neck supple, full ra nge of motion, no cervical lymphadenopathy CARDIO: no murmurs, regular rate and rhythm, S1, S2 normal LUNGS: clear to auscultatio n bilaterally ABDOMEN: soft, nontender , no t distended, bowel sounds are active NEUROLOGIC: nonfocal, motor stre ngth of upper/lower extremities intact , sensory exam intact SKIN: no suspicious lesion s, warm and dry EXTREMITIES: no clubbing, cyanosi s, or edema ORAL CAVITY: mucosa moist
--- NOTE | 2024-10-22 10:45 | NM_ITS ---
Patient Name: TELMA GUZMAN MR#: [id number] : 1960 Exam Date: 10/22/2024 Ordering Doctor: DR ISAI OROPEZA . RADIOLOGY REPORT PROCEDURE: NM TENISHA PERF SPECT REST STR COMPARISON: None. INDICATIONS: CHEST PAIN, SHORTNESS OF BREATH, FATIGUE TECHNIQUE: Exam Description: Stress/Rest one day protocol gated SPECT Rest Imagin.8 mCi Tc-99m Cardiolite IV on 10/22/2024 Stress Imaging 30.5 mCi Tc-99m Cardiolite IV on 10/23/2027 Exercise Protocol: Ramin Heart Rate (bpm): Rest: 49 Max: 139 PMHR: 89 Blood Pressure: Rest: 138/80 Max: 148/88 Exercise Time: Minutes: 6 Seconds: 48 Stage Reached: Stage: 3 Mets 9.0 Symptoms: Rest and peak stress ECG findings were pending, and the exercise portion of the study was pending per attending physician [facility]. For more details, please see separate cardiac stress test report. FINDINGS: QUALITY OF STUDY: Good PERFUSION DEFECT: LOCATION: Basal anterolateral SIZE: Small SEVERITY: Mild TYPE: Reversible WALL MOTION: Normal wall motion LV SIZE: 84 mL. TID / TCD: 0.8 LVEF: Calculated EF 67%. SUMMARY: Myocardial perfusion imaging study is abnormal CONCLUSION: 1. Myocardial perfusion is abnormal with soft tissue attenuation 2. A basal anterolateral reversible perfusion defect is seen suggestive of ischemia 3. Global left ventricular systolic function is normal 4. No evidence of transient ischemic dilatation Dictated by: Magdalene Ceballos M.D. on 10/22/2024 at 17:11 Approved by: Magdalene Ceballos M.D. on 10/22/2024 at 17:14
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
--- NOTE | 2024-10-23 10:37 | PM.STRESS ---
Stress Test Stress Test Requesting physician: Wing Wilks Procedure: Treadmill nuclear stress test with Cardiolite injection General Information: Reason for Stress Test: [Shortness of breath] Cardiac History and Risk Factors: [Dyslipidemia] Resting 12 - Lead Electrocardiogram: Sinus bradycardia Right bundle branch block Abnormal resting EKG Stress Test: Protocol: [Ramin protocol] Exercise Capacity: [Good] Blood Pressure Response: [Appropriate] Rhythm: [Sinus, frequent premature ventricular contractions] ST - Response: [No significant ST T wave abnormalities] Patient Response: [No chest pain, + palpitations, + shortness of breath] The patient exercised for 6 minutes and 48 seconds. She reached stage III of the Ramin protocol achieving 9 METS. Resting heart rate was 49 bpm reaching a peak heart rate of 139 bpm which is 89% of maximal predicted heart rate. Resting blood pressure was 138/78 increasing to a maximum of 148/88. Interpretation: 1. No ischemic EKG changes on treadmill exercise stress test 2. Appropriate heart rate and blood pressure response to exercise 3. Frequent ventricular ectopy on exercise and in recovery 4. Bailey treadmill score is +6.5. Estimated 1 year mortality: 0.5 to 0.6%. Risk category: Low risk. Angiography: Usually not indicated 5. Nuclear images are to be read, interpreted, and reported separately
== END 2024-10-22 11:08 | disposition home or self-care (01) ==
LOC: NM 11:07
PROVIDERS: PCP Family Medicine; Visit Provider Family Medicine
DX: R07.9 Chest pain, unspecified (principal)
CPT/HCPCS: 78452; 93017

== ENCOUNTER 2025-01-13 09:57 | Outpatient (OUT) | payer MEDICARE, SELFPAY ==
--- OUTSIDE RECORDS SUMMARY | 2025-01-02 20:18 | XMS_ITS | Continuity of Care Document ---
Author Organization [facility] Address [address] [place] [address] Phone Care Team Providers Care City Supervisor Name Role Phone Wing Wilks MD Primary Care Provider Carolann Barrera APRN Attending Provider [phone] Magdalene Ceballos Attending Provider Care Teams Patient Care Team Team Status: Active Member Role Status Dates Wing Wilks MD Primary Care Provider Active Visit Care Team Team Status: Inactive Member Role Status Dates Wing Wilks MD Primary Care Provider Active Start: January 02, 2025 End: January 02, 2025 Carolann Barrera APRN [facility] Attending Provider Active Start: January 02, 2025 End: January 02, 2025 Patient Care Team Team Status: Inactive Member Role Status Dates Wing Wilks MD Primary Care Provider Active Start: January 02, 2025 End: January 02, 2025 Magdalene Ceballos Attending Provider Active Start: January 02, 2025 End: January 02, 2025 Chief Complaint and Reason for Visit Chief Complaint Admit Date RANDALL / - DAY FOLLOW UP January 02 11:19am e78.2 January 02, 2025 12: 01pm Reason for Visit Admit Date RANDALL (obstructive sleep apnea) December 11:19am Allergies, Adverse Reactions, Alerts Allergen Type Severity Reaction Last Updated Verified Status No Known Allergies Allergy Unknown [facility] er 2023 12:23pm Yes Active Social History Smoking Status Status Start Date End Date Date of Observa tion Never smoked tobacco (finding) January 02, 2025 11:28am Observation Status Observation Response Date of Response Legal Sex Female (finding) Sex Assigned At Female March [id number] Gender Identity Cisgender/Not transgender (findi ng) January 02, 2025 Cisgender/Not transgender (findi ng) January 02, 2025 Cisgender/Not transgender (findi ng) January 02, 2025 Sexual Orientation Unknown Unknown Unknown Family History Relationship Condition Age at Onset Recorded Date/T pako father Heart disease Unknown Myocardial infarction Unknown Atrial fibrillation Unknown History of coronary artery bypass surgery Unknown mother History of malignant neoplasm of parotid gland Unknown sister Heart disease Unknown Atrial fibrillation Unknown Myasthenia gravis Unknown Problems Active Problems Medical Problem Onset Date Status Right hand pain Unknown Active RANDALL (obstructive sleep apnea) Unknown Ac tive Trigger finger, right ring finger Unknown Active Right wrist pain Unknown Active Personal history of colonic polyps Unknown Active Arthritis of carpometacarpal (CMC) joint of left thumb Unknown Active Inactive/Resolved Problems Medical Problem Onset Date Status Apnea, sleep Unknown Resolved Medications Medication Status Dose Units Route Directions Qty Days St art Date Stop Date End Date Instructions Adherence Conjugated Estrogens 0.625 mg/gram cream Active 0.625 MG TOPICA L every week 2018 1:00am Unknown Apixaban (Eliquis) 5 mg tablet Discont inued 5 [facility] 12:00a m September 17, 2024 3:57p m Simvastatin 20 mg tablet Active 20 [facility] 12:00a m FreeTextSi tablet in the evening Orally Once a day; Note: Source Status: Taking; Provider: Edwin Beauchamp ( ) Unknown Multivitami n (Daily Multi-Vitam in) tablet Active 1 TAB PO Daily Febobe r 2023 12:00a m Unknown Aspirin (Adult Low Dose Aspirin) 81 mg tablet,adrianna yed release (DR/EC) Active 81 MG PO Daily September 17, 2024 12:00a m Unknown Immunizations Immunization Event Date Not Given Reason Dose Number Pallet Rectifier Lot Number Vaccine Information Statement (VIS) Detail Administration Location [address] ([facility]) June 04, 2020 [id number] [facility] COVID-19 mRNA-[id number] (Moderna) July 02, 2020 [id number] [facility] Relevant Diagnostic Tests and/or Laboratory Data Laboratory Results Test Collection Date/Time Result Date/Time Result Interpretation Reference Range Result Comment Performing Site Cholester ol Level January 02, 2025 12:09pm January 02, 2025 1:20pm 254 mg/dL Above high normal 140-200 Chol less than 200 mg/dl low riskChol 201-239 mg/dl borderline riskChol 240 mg/dl and greater high risk [facility] [id number] [address] [facility] [address] HDL Cholester ol January 02, 2025 12:09pm January 02, 2025 1:20pm 68 mg/dL 23-92 HDL CHOL ATP-III CLASSIFICATI ON Cardiovascul ar RiskHDL > or equal to 60 mg/dL LOWHDL < 40 mg/dL HIGH [facility] [id number] [address] [facility] [address] Triglycer ides Level January 02, 2025 12:09pm January 02, 2025 1:20pm 86 mg/dL 0-149 TRIG ATP III CLASSIFICATI ONTRIG less than 150 mg/dL NormalTRIG 150-199 mg/dL Borderline highTRIG 200-500 mg/dL High TRIG greater than 500 mg/dL Very highStandard traceable to the Center for Disease Conrtrol and Prevention (CDC) test method. [facility] [id number] [address] [facility] [address] LDL Cholester ol, Calculate d January 02, 2025 12:09pm January 02, 2025 1:20pm 169 mg/dL Above high normal 0-100 LDL ATP III CLASSIFICATI ONLDL less than 100 mg/dL OptimalLDL 100-129 mg/dL Near or above optimalLDL 130-159 mg/dL Borderline highLDL 160-189 mg/dL HighLDL greater than 189 mg/dL Very high [facility] [id number] [address] [facility] [address] VLDL Cholester ol January 02, 2025 12:09pm January 02, 2025 1:20pm 17 mg/dL [facility] [id number] [address] [facility] [address] Cholester ol/HDL Ratio January 02, 2025 12:09pm January 02, 2025 1:20pm 3.7 <5.0 [facility] [id number] [address] [place] [address] Vital Signs Vital Reading Result Reference Range Collection Date/Time Height 66.5 [in_i] January 02 11:29am Weight 68.49 kg January 02 11:29am Heart Rate 62 /min 60-100 January 02 11:29am Oxygen saturation by Pulse oximetry 100 % 95-100 January 02, 2025 11: 29am BP Systolic 134 mm[Hg] 100-140 January 02 11:29am BP Diastolic 75 mm[Hg] 60-100 January 02 11:29am BMI (Body Mass Index) 24.0 kg/m2 January 02, 2025 11:29am Advance Directives Advance Directive Response Recorded Date/ Time Advance Directives No January 1:13pm Insurance Providers Guarantor Jessica Perez Address [address] [place] [id number] Contact Info. Home Phone: Payer Policy Id Subscriber's Name Subscriber Id Effe ctive Date Expiration Date [facility] Employees [id number] Jessica Perez [id number] Encounters Encounter Location(s) Arrival/Admit Date Discharge/Depart Date Provider(s) Departed Physician/Prov ider Office Visit -[facility] January 02, 2025 11:19am January 02, 2025 11:55am Cristal Regalado APRN [facility] Departed Clinical -Lab [facility] January 02, 2025 12:01pm January 02, 2025 12:02pm Ehab Jt Ceballos Recent Diagnosis Onset Date Admit Date RANDALL (obstructive sleep apnea) Unknown Au 2024 11:19am Assessments Diagnosis Onset Date Resolution Status Admit Date RANDALL (obstructive sleep apnea) acute January 02, 2025 11:19am Plan of Treatment Author Carolann Barrera [facility] Authored January 02, 2025 12: 50pm Patient is seen per insuranc e requirements today after initiation of PAP therapy. Fortunately, Patient is using, tolerating, and benefitting from current PAP therapy. Machine compliance report was reviewed with patient. Patient RANDALL is well-controlled on current therapy. Results of HSAT was briefly reviewed specifically noting AHI. Discussed the importance of continuing with nightly use of PAP therapy. All questions were answered. The patient was advised to call us if there are any new sleep issues or concerns. Follow-up 1 year. Future Tests Future scheduled test information is unavailable Pending Tests Pending diagnostic test information is unavailable Future Visits Future appointment information is unavailable Referrals to Other Providers Referral information is unavailable Future Procedures Future procedure information is unavailable Future Medications Future medication information is unavailable Patient Instructions Patient instructions are unavailable
--- OUTSIDE RECORDS SUMMARY | 2025-01-13 10:01 | XMS_ITS | Encounter Summary ---
Author Organization [facility] Address [address] [place] [address] Care Team Providers Care Supervisor Farm Equipment Maintenance Name Role Phone Wing Wilks MD Primary Care Provider [phone] Encounter Details Date Type Department Care Team (Late st Contact Info) Description 01/05/2025 Orders Only [place] [address] [place] [address] Provider, MD Robbie [address] [place] [id number] Social History Tobacco Use Types Packs/Day Years Used Date Smoking Tobacco: Never Smokeless Tobacco: Never Alcohol Use Standard Drinks/Week Comments Not Currently 0 (1 standard drink = 0.6 oz pur e alcohol) Comments Unknown Sex and Gender Information Value Date Recorded Sex Assigned at Female 12/23/2024 7:46 AM EDT Legal Sex Female 11:03 AM EDT Gender Identity Female 12/23/2024 7:46 AM EDT Sexual Orientation Heterosexual or Straight 11/26 7:46 AM EDT documented as of this encounter Plan of Treatment Upcoming Encounters Date Type Department Care Team (Late st Contact Info) Description 01/21/2025 9:15 AM EDT Office Visit [facility] [address] [place] [address] Magdalene Ceballos MD [address] [facility] [place] [id number] documented as of this encounter Procedures Procedure Name Priority Date/Time Associated Diagnosis Comments LIPID PANEL Routine 01/02/2025 12:21 PM EDT documented in this encounter Results * Lipid panel (01/02/2025 12:21 PM EDT) Blood Venous blood specimen / Unknown us Historical Provider LAB BLOOD ORDERABLES Terri l Result documented in this encounter Visit Diagnoses Not on filedocumented in this encounter Care Teams Supervisor Farm Equipment Maintenance Relationship Specialty Start Date End Date Wing Wilks MD [facility] [place] [address] PCP - General Family Medicine 10/29/24 documented as of this encounter
--- OUTSIDE RECORDS SUMMARY | 2025-01-13 10:01 | XMS_ITS | Encounter Summary ---
Author Organization [facility] Address [address] [place] [address] Care Team Providers Care Fish Cleaner Name Role Phone Wing Wilks MD Primary Care Provider [phone] Encounter Details Date Type Department Care Team (Late st Contact Info) Description 01/08/2025 Orders Only [facility] [address] [place] [address] Imelda Jo MA Hyperlipidemia, unspecified hyperlipidemia type (Primary Dx) Social History Tobacco Use Types Packs/Day Years [...] Description 01/21/2025 9:15 AM EDT Office Visit [facility] [address] [place] [address] Magdalene Ceballos MD [address] [facility] [place] [phone] documented as of this encounter Visit Diagnoses Diagnosis Hyperlipidemia, unspecified hyperlipidemia type- Primary documented in this encounter Care Teams Fish Cleaner Relationship Specialty Start Date End Date Wing Wilks MD [address] [facility] [address] [address] PCP - General Family Medicine 10/29/24 documented as of this encounter
--- OUTSIDE RECORDS SUMMARY | 2025-01-13 10:01 | XMS_ITS | Encounter Summary ---
Author Organization [facility] Address [address] [place] [address] Care Team Providers Care Refractive Surgeon Name Role Phone Wing Wilks MD Primary Care Provider [phone] Encounter Details Date Type Department Care Team (Late st Contact Info) Description 01/08/2025 Orders Only [facility] [address] [place] [address] Imelda Jo MA Hyperlipidemia, unspecified [...] Description 01/21/2025 9:15 AM EDT Office Visit [facility] [address] [place] [address] Magdalene Ceballos MD [address] [facility] [place] [phone] Scheduled Orders Name Type Priority Associated Diagnoses Orde r Schedule Lipid panel Lab Routine Hyperlipidemia, unspecified hyperlipidemia type Expected: 01/08/2025 (Approximate), Expires: 01/08/2026 documented as of this encounter Visit Diagnoses Diagnosis Hyperlipidemia, unspecified hyperlipidemia type- Primary documented in this encounter Care Teams Refractive Surgeon Relationship Specialty Start Date End Date Wing Wilks MD [address] [facility] [place] [address] PCP - General Family Medicine 10/29/24 documented as of this encounter
--- OUTSIDE RECORDS SUMMARY | 2025-01-13 10:01 | XMS_ITS | Clinical Summary ---
Author Organization [facility] Address [address] [place] [address] Care Team Providers Care Machine Stuffer Automatic Name Role Phone Wing Wilks MD Primary Care Provider [phone] Allergies Active Allergy Reactions Criticality Noted Date Comments Guaifenesin Unknown 10/29/2024 Medications simvastatin (Zocor) 20 mg tablet Take 20 mg by mouth at bedtime. Active aspirin 81 mg EC tablet Take 81 mg by mouth in the morning. Active atorvastatin (Lipitor) 80 mg tabletIndications:H yperlipidemia, unspecified hyperlipidemia type Take 1 tablet (80 mg) by mouth in the morning. 90 tablet 3 5 01/09/20 26 Active Encounters Date Type Department Care Team Description 01/08/2025 Orders Only [facility] [address] [place] [id number] Imelda Jo MA Hyperlipidemia, unspecified hyperlipidemia type (Primary Dx) 01/08/2025 Orders Only [facility] [address] [place] [address] Imelda Jo MA Hyperlipidemia, unspecified hyperlipidemia type (Primary Dx) 01/07/2025 Telephone [facility] [address] [place] [address] Lisha Harden MA 01/05/2025 Orders Only [facility] [address] [place] [phone] ProviderRobbie MD 12/24/2024 Telephone [facility] [address] [place] [address] Lisha Harden MA 12/23/2024 7:52 AM EDT - 12/23/2024 11:59 PM EDT Hospital Encounter [facility] [address] [place] [address] Abnormal stress test Discharge Disposition: Home or Self Care (01) 12/23/2024 Travel 10/29/2024 9:00 AM EDT Office Visit [facility] [address] [place] [address] Magdalene Ceballos MD Mixed hyperlipidemia; Abnormal stress test 10/28/2024 Orders Only [facility] [address] [place] [address] ProviderRobbie MD 10/27/2024 Orders Only [facility] [address] [place] [address] ProviderRobbie MD from Last 3 Months Family History Medical History Relation Name Comments Coronary artery disease Father Relation Name Status Comments Father Alive Mother Social History Tobacco Use Types Packs/Day Years Used Date Smoking Tobacco: Never Smokeless Tobacco: Never Tobacco Cessation:Counseling Given: Not Answered Alcohol Use Standard Drinks/Week Comments Not Currently 0 (1 standard drink = 0.6 oz pur e alcohol) Comments Unknown Sex and Gender Information Value Date Recorded Sex Assigned at Female 12/23/2024 7:46 AM EDT Legal Sex Female 11:03 AM EDT Gender Identity Female 12/23/2024 7:46 AM EDT Sexual Orientation Heterosexual or Straight 11/26 7:46 AM EDT Last Filed Vital Signs Vital Sign Reading Time Taken Comments Blood Pressure 128/64 12/23/2024 9:45 AM EDT Pulse 54 12/23/2024 9:45 AM EDT Temperature - - Respiratory Rate 18 12/23/2024 9:45 AM EDT Oxygen Saturation 100% 12/23/2024 9:45 AM EDT Inhaled Oxygen Concentration - - Weight 68.5 kg (151 lb) 12/23/2024 8:47 AM EDT Height 167.6 cm (5' 6 ) 10/29/2024 9:07 AM EDT Body Mass Index 24.37 10/29/2024 9:07 AM EDT Plan of Treatment Upcoming Encounters Date Type Department Care Team (Late st Contact Info) Description 01/21/2025 9:15 AM EDT Office Visit [facility] [address] [place] [address] Magdalene Ceballos MD [address] [place] [address] [facility] [place] [address] Health Maintenance Due Date Last Done Comments CT Colonography 1960 Colonoscopy 1960 Colorectal Cancer Screening 1960 FIT-DNA 1959 FIT 1960 FOBT 1960 Medicare Annual Wellness (AWV) 1959 Medicare Initial Physical (IPPE) 1960 Sigmoidoscopy 1959 Depression Screening 1971 Adult Tetanus 1981 HPV/Cotest 1989 Mammogram 1999 Pneumococcal Vaccine: 50+ Years (1 of 1 - PCV) 2009 Zoster Vaccines (1 of 2) 2009 COVID-19 Vaccine (3 - 2023-2 5 season) 2024 07/02/2020, 06/04/2020 Fall Risk Screening 2024 Influenza Vaccine (#1) 2025 3, 03/01/2021, 03/04/2018 Cervical Cancer Screening 07/22/2025 Pap Smear 07/22/2025 07/22/2022 HIB Vaccines Aged Out No longer eligi ble based on patient's age to complete this topic HPV Vaccines Aged Out No longer eligi ble based on patient's age to complete this topic IPV Vaccines Aged Out No longer eligi ble based on patient's age to complete this topic Meningococcal B Vaccine Aged Out No l onger eligible based on patient's age to complete this topic Meningococcal Vaccine Aged Out No aquilino demetra eligible based on patient's age to complete this topic Rotavirus Vaccines Aged Out No longer eligible based on patient's age to complete this topic Procedures Procedure Name Priority Date/Time Associated Diagnosis Comments LIPID PANEL Routine 01/02/2025 12:21 PM EDT CTA HEART CORONARY W IV CONTRAST W OR WO FFRCT Routine 12/23/2024 9:29 AM EDT Abnormal stress test TREADMILL STRESS MYOCARDIAL PERFUSION IMAGING Routine 10/23/2024 12:28 PM EDT from Last 3 Months Results * Lipid panel (01/02/2025 12:21 PM EDT) Blood Venous blood specimen / Unknown us Historical Provider LAB BLOOD ORDERABLES Terri peña Result * CTA Heart Coronary W IV Contrast W or WO FFRct (12/23/2024 9:29 AM EDT) Anatomical Region Laterality Modality Heart Computed Tomogra phy 12/23/2024 5:38 PM EDT Impressions 12/23/2024 5:57 PM EDT 1. Normal coronary CTA without evidence for significant coronary artery stenosis.. Mild stenosis in the proximal LAD, RCA and left circumflex. 2. Normal global and regional wall motion and function of the LV. Normal ejection fraction of 74% 3. Calcium scoring of 7 with tiny calcified plaque in the proximal LAD and therefore, possibility of significant coronary artery stenosis is unlikely 4. Suggestion of large cyst at the upper pole of the left kidney partially visualized at the inferior most slices. Electronically signed: Rosanne Mott MD. Narrative 12/23/2024 5:57 PM EDT CTA HEART CORONARY W IV CONTRAST W OR WO FFRCT 12/23/2024 8:37 AM CLINICAL INDICATIONS: Abnormal stress test. Study is requested to evaluate possibility of coronary artery stenosis. TECHNOLOGIST COMMENTS: Abnormal stress test. QUESTION FOR RADIOLOGIST: Evaluate possible coronary artery stenosis. PROTOCOL: Gated cardiac CTA and gated noncontrast calcium scoring CONTRAST: 100 mL Omnipaque 350 TECHNIQUE: Multidetector CT angiogram was obtained using retrospective ECG gating. Imaging was performed from the level of the clavicles to the level of the hemidiaphragms. In order to provide better evaluation of the anatomy and disease process, advanced off-line 3-D post-processing techniques, including 3-D volume rendered images, curving analysis of the coronary arteries, stenosis calculation and ejection fraction evaluation were performed. Gated noncontrast calcium scoring part of the study is performed. Heart flow roadmap overview is also obtained. Medication administered in preparation for the examination is located in nursing documentation. All CT scans at this facility use dose modulation, iterative reconstruction, and/or weight based dosing when appropriate to reduce radiation dose to as low as reasonably achievable COMPARISON: None. CORONARY ARTERY ANGIOGRAM FINDINGS: Stenoses are reported as maximum percentage diameter stenosis. Stenosis grading is reported using the following scheme: Normal: no stenosis Mild: 1-49% stenosis Moderate: 50-70% stenosis Severe: >70% stenosis Occluded Dominance of the coronary artery system: right with normal origins and course. Left Main: The left main is a normal caliber vessel which gives rise to the LAD and circumflex arteries small ramus intermedius is visualized. The left main with no significant plaque. No significant stenosis Left Anterior Descending Artery: The proximal left anterior descending artery and first diagonal branch with tiny calcified plaque. The mid-distal LAD, D2 and D3 branches with no significant plaque. There is a short segment of myocardial bridge in the mid first diagonal segment. There is mild stenosis less than 20% in the proximal LAD The ramus intermedius branch with no significant plaque. Left Circumflex Artery: The left circumflex artery and its obtuse marginal branches with minimal plaque. There is mild stenosis less than 20% in the proximal left circumflex and less than 30% in the obtuse marginal branch Right Coronary Artery: The right coronary artery and acute marginal branches with minimal plaque. There is minimal stenosis less than 20% RCA. Cardiac Morphology: The right atrium is normal. The right ventricle is normal. The left atrium is normal. The left ventricle is normal. The pericardium is normal and there is no pericardial effusion. Cardiac Function: {reported only if retrospective ECG gating has been used} The calculated left ventricular ejection fraction is 74%, the left ventricular end-diastolic volume is 102 mL, and the left ventricular end-systolic volume is 26 mL. Stroke volume is 76 mL. There is normal wall motion of the left ventricle. Cardiac Devices and Indwelling Central Venous Lines: No central lines or pacer devices are seen EXTRACARDIAC FINDINGS: Other lung findings: Visualized part of the lungs appear unremarkable Airway: Visualized part of the airway appear unremarkable. Pleura: No pleural effusion, thickening, or pneumothorax in the visualized part of the pleura. Thoracic aorta and great vessels: Normal in diameter. Pulmonary arteries: Normal. Heart and pericardium: Normal. Lymph nodes: No enlarged thoracic lymph nodes. Thoracic spine: Normal. Chest wall: Normal. Visualized upper abdomen: Position of large cyst at the upper pole of the left kidney. Otherwise, unremarkable. Gated Calcium scoring part of the study revealed tiny calcified plaque in the proximal LAD with total calcium scoring of 7. Score of 0 in the left main, score of 0 in the left circumflex and score of 0 in the RCA. Therefore, possibility of significant coronary artery stenosis is unlikely. Heart flow roadmap overview revealed mild stenosis in the proximal LAD. No significant stenosis in the left circumflex or RCA. Procedure Note Rosanne Mott MD - 12/23/2024 CTA HEART CORONARY W IV CONTRAST W OR WO FFRCT 12/23/2024 8:37 AM CLINICAL INDICATIONS: Abnormal stress test. Study is requested toevaluate possibility of coronary artery stenosis. TECHNOLOGIST COMMENTS: Abnormal stress test. QUESTION FOR RADIOLOGIST: Evaluate possible coronary artery stenosis. PROTOCOL: Gated cardiac CTA and gated noncontrast calcium scoring CONTRAST: 100 mL Omnipaque 350 TECHNIQUE: Multidetector CT angiogram was obtained using retrospectiveECG gating. Imaging was performed from the level of the clavicles to the levelof the hemidiaphragms. In order to provide better evaluation of the anatomyand disease process, advanced off-line 3-D post-processing techniques,including 3-D volume rendered images, curving analysis of the coronary arteries,stenosis calculation and ejection fraction evaluation were performed. Gated noncontrast calcium scoring part of the study is performed. Heartflow roadmap overview is also obtained. Medication administered in preparation for the examination is located innursing documentation. All CT scans at this facility use dose modulation, iterativereconstruction, and/or weight based dosing when appropriate to reduce radiation dose to aslow as reasonably achievable COMPARISON: None. CORONARY ARTERY ANGIOGRAM FINDINGS: Stenoses are reported as maximum percentage diameter stenosis. Stenosis grading is reported using the following scheme: Normal: no stenosis Mild: 1-49% stenosis Moderate: 50-70% stenosis Severe: >70% stenosis Occluded Dominance of the coronary artery system: right with normal origins andcourse. Left Main: The left main is a normal caliber vessel which gives rise to the LAD and circumflex arteries small ramus intermedius is visualized. The left mainwith no significant plaque. No significant stenosis Left Anterior Descending Artery: The proximal left anterior descending artery and first diagonal branchwith tiny calcified plaque. The mid-distal LAD, D2 and D3 branches with nosignificant plaque. There is a short segment of myocardial bridge in the mid firstdiagonal segment. There is mild stenosis less than 20% in the proximal LAD The ramus intermedius branch with no significant plaque. Left Circumflex Artery: The left circumflex artery and its obtuse marginal branches with minimalplaque. There is mild stenosis less than 20% in the proximal left circumflex andless than 30% in the obtuse marginal branch Right Coronary Artery: The right coronary artery and acute marginal branches with minimal plaque.There is minimal stenosis less than 20% RCA. Cardiac Morphology: The right atrium is normal. The right ventricle is normal. The left atriumis normal. The left ventricle is normal. The pericardium is normal and thereis no pericardial effusion. Cardiac Function: {reported only if retrospective ECG gating has beenused} The calculated left ventricular ejection fraction is 74%, the leftventricular end-diastolic volume is 102 mL, and the left ventricular end-systolicvolume is 26 mL. Stroke volume is 76 mL. There is normal wall motion of the left ventricle. Cardiac Devices and Indwelling Central Venous Lines: No central lines orpacer devices are seen EXTRACARDIAC FINDINGS: Other lung findings: Visualized part of the lungs appear unremarkable Airway: Visualized part of the airway appear unremarkable. Pleura: No pleural effusion, thickening, or pneumothorax in the visualizedpart of the pleura. Thoracic aorta and great vessels: Normal in diameter. Pulmonary arteries: Normal. Heart and pericardium: Normal. Lymph nodes: No enlarged thoracic lymph nodes. Thoracic spine: Normal. Chest wall: Normal. Visualized upper abdomen: Position of large cyst at the upper pole of theleft kidney. Otherwise, unremarkable. Gated Calcium scoring part of the study revealed tiny calcified plaque inthe proximal LAD with total calcium scoring of 7. Score of 0 in the left main,score of 0 in the left circumflex and score of 0 in the RCA. Therefore,possibility of significant coronary artery stenosis is unlikely. Heart flow roadmap overview revealed mild stenosis in the proximal LAD.No significant stenosis in the left circumflex or RCA. IMPRESSION: 1. Normal coronary CTA without evidence for significant coronary artery stenosis.. Mild stenosis in the proximal LAD, RCA and left circumflex. 2. Normal global and regional wall motion and function of the LV.Normal ejection fraction of 74% 3. Calcium scoring of 7 with tiny calcified plaque in the proximal LADand therefore, possibility of significant coronary artery stenosis isunlikely 4. Suggestion of large cyst at the upper pole of the left kidneypartially visualized at the inferior most slices. Electronically signed: Rosanne Mott MD. Magdalene Ceballos MD IMG CT PROCEDURES Final Result * Treadmill Stress Myocardial Perfusion Imaging (10/23/2024 12:28 PM EDT) Anatomical Region Laterality Modality Other Historical Provider CV STRESS PROCEDURES Terri l Result from Last 3 Months Insurance [employer] MED[employer]VANTAGE Care Teams Machine Stuffer Automatic Relationship Specialty Start Date End Date Wing Wilks MD [address] [place] [address] PCP - General Family Medicine 10/29/24
--- OUTSIDE RECORDS SUMMARY | 2025-01-13 10:01 | XMS_ITS | Encounter Summary ---
Author Organization [facility] Address [address] [place] [address] Care Team Providers Care Tool Keeper Name Role Phone Wing Wilks MD Primary Care Provider [phone] Encounter Details Date Type Department Care Team (Late st Contact Info) Description 01/07/[address] [phone] Lisha Harden MA Social History Tobacco Use Types Packs/Day Years [...] AM EDT documented as of this encounter Miscellaneous Notes * Telephone Encounter - Lisha Harden MA - 01/07/2025 5:08 PM EDT Regarding lab results from 01/02/2025: LDL well above target; please switch Zocor to 80 mg Lipitor and recheck lipids and LFTs in 8 weeks Thanks documented in this encounter Plan of Treatment Upcoming Encounters Date Type Department Care Team (Late st Contact Info) Description 01/21/2025 9:15 AM EDT Office Visit [facility] [address] [place] [address] Magdalene Ceballos MD [address] [facility] [place] [address] [place] [id number] documented as of this encounter Visit Diagnoses Not on filedocumented in this encounter Care Teams Tool Keeper Relationship Specialty Start Date End Date Wing Wilks MD [address] [facility] [address] [address] PCP - General Family Medicine 10/29/24 documented as of this encounter
--- NOTE | 2025-01-13 10:08 | US_ITS ---
[address] [address] Patient Name: TELMA GUZMAN MRN: [id number] date: 1960 Sex: F Assigned Patient Location: US Current Patient Location: US Accession/Order Number: [id number] Exam Date: 01/13/2025 12:11 Report Date: 01/13/2025 12:20 At the request of: ISAI OROPEZA MD Procedure: US renal BI Bilateral Renal Ultrasound HISTORY: Renal cyst COMPARISON: None RIGHT kidney measures 9.3 cm. LEFT kidney measures 12.3 cm. Hydronephrosis: None RENAL STONE: Multiple echogenic foci throughout the right kidney measuring up to 12 mm. Consistent with nonobstructing renal calculi. RENAL LESIONS: Anechoic 12 mm cyst in the superior pole. Possible dilated calyx versus cortical cysts. 4.9 cm anechoic, superior left renal cyst. 5 mm left inferior echogenic stone. URINARY BLADDER: Unremarkable REPRODUCTIVE STRUCTURES Not assessed IMPRESSION : No hydronephrosis. Bilateral nephrolithiasis. 4.9 cm superior left anechoic renal cyst. Impression dictated by: Da Mendez M.D. 01/13/2025 12:20 PM Dictation Location: [place] [address] Electronically authenticated by: [id number] Y Date: 01/13/2025 12:20
--- OUTSIDE RECORDS SUMMARY | 2025-01-13 12:16 | XMS_ITS | CCD ---
Author Organization [facility] Care Team Providers Care Manager Marketing Communications Name Role Phone DR ISAI WILKS Admitting Unavailable DR ISAI WILKS Attending Unavailable Beti Cole Unavailable Quynh Pineda Unavailable DO Zayra Salcido Attending Provider DO Zayra Salcido Attending Provider MD Isai Wilks Primary Care Provider MD Isai Wilks Primary Care Provider Community, Outreach Attending Provider MD Isai Wilks Primary Care Provider MD Bonnie Hernandez Attending Provider [phone] [facility] [place] Attending Provider Self, Referral Attending Provider Unavailable MD Walter Murphy Attending Provider MD Isai Wilks Primary Care Provider MD Bonnie Hernandez Attending Provider [facility] [place] Attending Provider Self, Referral Attending Provider Unavailable MD Walter Murphy Attending Provider Isai Wilks MD Primary Care Provider ZAYRA SALCIDO J Attending Unavailable Lele Kramer MD Attending Provider [phone] Isai Wilks MD Primary Care Provider Isai Wilks MD Primary Care Provider [phone] Carolann Barrera APRN Attending Provider [phone] Magdalene Hough Attending Provider [phone] Self, Referral Admitting Unavailable Self, Referral Attending Unavailable Isai Wilks Primary Care Unavailable Lele Kramer E Admitting Unavaila ble Lele Kramer Attending Unavaila ble Isai Wilks Primary Care Unavailable [place], [place] A Admitting [facility]available [facility] Attending Unavailable Isai Wilks Primary Care Unavailable Bonnie Hernandez Admitting Unavailable Bonnie Hernandez Attending Unavailable Isai Wilks Primary Care Unavailable [facility], [place] P Admitting Unavailable [facility] - [facility], [place] P Attending Unavailable Isai Wilks Primary Care Unavailable Walter Murphy Admitting Unavailable Walter Murphy Attending Unavailable Isai Wilks Primary Care Unavailable [facility] Attending Unavailable [place], [place] Referring Unavailable Allergies Allergy Classification Reported Allergen(s) Allergy Type Date of Onset Reaction(s) Facility (1 source) guaiFENesin; Translations: [GUAIFENESIN] Drug Allergy 10-29-2024 [facility] Repository Medications Current Medications Medication Drug Class(es) Dates Sig (Normalized) Sig (Original) aspirin 81 mg delayed release oral tablet (5 sources) Platelet Aggregation Inhibitor, Nonsteroidal Anti-inflammatory Drug Start: 09-17-2024 ASPIRIN 81 PO As pirin 81 Active Biotin (1 source) take 1 tablet by mouth once daily Biotin 1 tablet Orally Daily Active ciprofloxacin 2 mg/ml / hydrocortisone 10 mg/ml otic suspension (1 source) Corticosteroid, Quinolone Antimicrobial Start: 12-04-19 18 Cipro HC 0.2-1 % 3 drops into affected ear Otic Twice a day for 7 day(s) Nov, Active estradiol 0.1 mg/ml vaginal cream (5 sources) Estrogen Start: 07-29-19 25 estradiol (Estrace) 0.1 MG/GM vaginal cream Indications: Vaginal dryness, menopausal , Postmenopausal HRT (hormone replacement therapy) USE 0.5 gram VAGINALLY TWICE A WEEK at bedtime DIRECTED 42.5 g 2 07/28/2024 Active Start: 07-28-2024 estradiol (Est race) 0.1 MG/GM vaginal cream Indications: Vaginal dryness, menopausal , Postmenopausal HRT (hormone replacement therapy) USE 0.5 gram VAGINALLY TWICE A WEEK at bedtime DIRECTED 42.5 g 2 07/28/2024 Active Start: 12-17-2023 End: 07-28-2024 estradiol (Estrace) 0.1 MG/G M vaginal cream Indications: Vaginal dryness, menopausal , Postmenopausal HRT (hormone replacement therapy) USE 0.5 gram VAGINALLY TWICE A WEEK at bedtime DIRECTED 42.5 g 2 12/17/2023 07/28/2024 Discontinued (Reorder) Estradiol 0.1 MG /GM 1 _insert Vaginal Every Sunday Active estrogens, conjugated (nursing home) 0.625 mg/ml vaginal cream (13 sources) Estrogen Start: 06-24-2018 apply 0.625 mg topic ally every week Start: 06-24-2018 apply 0.625 mg topic ally once daily Conjugated Estrogens Active 0.625 MG TOPICAL Daily June 24, 2018 1:00am Premarin As Dire cted Active Multivitamin (Daily Multi-Vi tamin) tablet (6 sources) Start: 03-14-2024 take 1 tablet by aguilar th once daily Start: 03-14-2024 take 1 tablet by aguilar th once daily Multivitamin (Daily Multi-Vitamin) tablet Active 1 TAB PO Daily March 13, 2024 11:00pm Start: 03-14-2024 take 1 tablet by aguilar th once daily Multivitamin (Daily Multi-Vitamin) tablet Active 1 TAB PO Daily March 14, 2024 12:00am olopatadine (1 source) Histamine-1 Receptor Inhibitor Patanol Active Probiotic (1 source) Probiotic 1 Tabl et Orally As Directed Active simvastatin 20 mg oral tablet (9 sources) HMG-CoA Reductase Inhibitor Start: 4 take 1 tablet by mouth once daily in the evening Suprep Bowel Prep Kit 17.5-3.13-1.6 GM/180ML (1 source) Start: 9 Suprep Bowel Prep Kit 17.5-3.13-1.6 GM/180ML 177ml bottle at 4pm, 177ml bottle at 11pm the day prior to colonoscopy Orally Twice a day for 1 day(s) May, Active Completed/Discontinued Medications Medication Drug Class(es) Dates Sig (Normalized) Sig (Original) apixaban 5 mg oral tablet (8 sources) Factor Xa Inhibitor Start: 03-14-2024 End: 09-17-2024 take 1 tablet by mouth twice daily Apixaban (Eliquis) 5 mg tablet Discontinued 5 MG PO Twice daily March 14, 2024 12:00am September 17, 2024 3:57pm Start: 07-19-2023 End: 07-28-2024 take 2 tablets by mouth twice daily, then take 1 tablet by mouth twice daily Eliquis 5 MG tablet TAKE 2 TABLETS BY MOUTH TWICE A DAY FOR 1 WEEK ,THEN 1 TABLET TWICE A DAY 07/19/2023 07/28/2024 Discontinued Problems Active Problems Problem Classification Problem Date Documented Date Episodic/Chronic Disorders of lipid metabolism (2 sources) Mixed hyperlipidemia; Translations: [Mixed hyperlipidemia] Onset: 10-29-2024 Chronic Menopausal disorders (2 sources) Vaginal dryness; Translations: [Menopausal and female climacteric states] 07-28-2024 Chronic Menopausal disorders (2 sources) Postmenopausal state; Translations: [Hormone replacement therapy] 07-28-2024 Episodic Osteoarthritis (16 sources) Arthritis of first carpometacarpal joint of left hand; Translations: [Unilateral primary osteoarthritis of first carpometacarpal joint, left hand] 03-04-2024 Chronic Other and unspecified benign neoplasm (12 sources) History of polyp of colon; Translations: [Personal history of colonic polyps] 06-26-2018 Episodic Other connective tissue disease (8 sources) Hand pain; Translations: [Pain in right hand] 03-03-2024 Episodic Other connective tissue disease (9 sources) Triggering of digit; Translations: [Trigger finger, right ring finger] 03-04-2024 Episodic Other connective tissue disease (7 sources) Trigger finger, right ring finger; Translations: [Trigger finger (acquired)] 03-04-2024 Episodic Other connective tissue disease (1 source) Pain in right hand; Translations: [Pain in right hand] 03-03-2024 Episodic Other non-traumatic joint disorders (8 sources) Pain in wrist; Translations: [Pain in right wrist] 03-03-2024 Episodic Other non-traumatic joint disorders (1 source) Pain of right wrist; Translations: [Pain in right wrist] 03-03-2024 Episodic Other screening for suspected conditions (not mental disorders or infectious disease) (6 sources) Patient encounter status; Translations: [Encounter for other screening for malignant neoplasm of breast] Onset: 03-19-2024 07-24-2024 Episodic Residual codes; unclassified (3 sources) Sleep apnea; Translations: [Sleep apnea, unspecified] 09-17-2024 Chronic Residual codes; unclassified (1 source) Sleep apnea, unspecified; Translations: [Unspecified sleep apnea] 09-17-2024 Chronic Residual codes; unclassified (2 sources) Obstructive sleep apnea syndrome; Translations: [Obstructive sleep apnea (adult) (pediatric)] 01-01-2025 Chronic Residual codes; unclassified (1 source) Obstructive sleep apnea (adult) (pediatric); Translations: [Obstructive sleep apnea (adult) (pediatric)] Onset: 09-30-2024 Chronic Past or Other Problems Problem Classification Problem Date Documented Da te Episodic/Chronic Immunizations and screening for infectious disease (4 sources) Encounter for screening for other viral diseases; Translations: [Contact with and (suspected) exposure to other viral communicable diseases] Onset: 08-30-2021 Resolved: 02-13-2022 Episodic Other connective tissue disease (1 source) Pain in right hand; Translations: [Pain in right hand] Onset: 03-04-2024 Episodic Other non-traumatic joint disorders (1 source) Pain in right wrist; Translations: [Pain in right wrist] Onset: 03-04-2024 Episodic Results Test Name Value Interpretation Reference Range Facility 36on 01-07-2025 36 Regarding lab result s from 01/02/2025: LDL well above target; please switch Zocor to 80 mg Lipitor and recheck lipids and LFTs in 8 weeks Thanks Normal [facility] Orders Onlyon 01-05-2025 Orders Only [id number] Telma Perez 1960 F Date Provider Department Center 01/05/2025 [id number], HISTORICAL SRI Coleman Family History Problem Relation Age of Onset Coronary artery disease Father Family Status - Relation Status Age at Mother Father Alive [facility] Cholesterol [Mass/volume] in Serum or PlasmaOrdered By: Magdalene Hough on 01-02-2025 Cholesterol [Mass/Vol] 254 mg/dL High 140-200 [facility] Comment on above: Chol less than 200 m g/dl low riskChol 201-239 mg/dl borderline riskChol 240 mg/dl and greater high risk Result Comment: Chol less than 200 mg/dl low risk Chol 201-239 mg/dl borderline risk Chol 240 mg/dl and greater high risk Performed By: #### L IPID #### [facility] [address] [id number] [place] Cholesterol in HDL [Mass/vol ume] in Serum or PlasmaOrdered By: Magdalene Hough on 01-02-2025 Cholesterol in HDL [Mass/Vol] 68 mg/dL Normal 23-92 [facility] Comment on above: HDL CHOL ATP-III CLA SSIFICATION Cardiovascular RiskHDL > or equal to 60 mg/dL LOWHDL < 40 mg/dL HIGH Result Comment: HDL CHOL ATP-III CLASSIFICATION Cardiovascular Risk HDL > or equal to 60 mg/dL LOW HDL < 40 mg/dL HIGH Performed By: #### L IPID #### [facility] [address] [place] [address] [place] Cholesterol in LDL Calc [Mas s/Vol]Ordered By: Magdalene Hough on 01-02-2025 Cholesterol in LDL [Mass/Vol] 169 mg/dL High 0-100 [facility] Comment on above: LDL ATP III CLASSIFI CATIONLDL less than 100 mg/dL OptimalLDL 100-129 mg/dL Near or above optimalLDL 130-159 mg/dL Borderline highLDL 160-189 mg/dL HighLDL greater than 189 mg/dL Very high Cholesterol in VLDL Calc [Ma ss/Vol]Ordered By: Magdalene Hough on 01-02-2025 Cholesterol in VLDL [Mass/Vol] 17 mg/dL [facility] Lipid Panelon 01-02-2025 LDL Cholesterol,Calculated 169 mg/dL High 0-100 [facility] Comment on above: Result Comment: LDL ATP III CLASSIFICATION LDL less than 100 mg/dL Optimal LDL 100-129 mg/dL Near or above optimal LDL 130-159 mg/dL Borderline high LDL 160-189 mg/dL High LDL greater than 189 mg/dL Very high Performed By: #### L IPID #### [facility] [address] Triglyceride w/Reflex 86 mg/dL Normal 0-149 [facility] [place] [facility] Comment on above: Result Comment: TRIG ATP III CLASSIFICATION TRIG less than 150 mg/dL Normal TRIG 150-199 mg/dL Borderline high TRIG 200-500 mg/dL High TRIG greater than 500 mg/dL Very high Standard traceable to the Center for Disease Conrtrol and Prevention (CDC) test method. Performed By: #### L IPID #### [facility] [address] VLDL CHOLESTEROL 17 mg/dL Normal [facility] Comment on above: Performed By: #### L IPID #### [address] Serum or plasma total choles terol/high density lipoprotein (HDL) cholesterol mass ratOrdered By: Magdalene Hough on 01-02-2025 Cholesterol.total/Lili sterol in HDL [Mass ratio] 3.7 {ratio} Normal <5.0 [facility] Comment on above: Result Comment: PERF ORMED BY: [place] [address] PATHOLOGIST [employer] QUINCY CARRANZA M.D. Performed By: #### L IPID #### [address] Triglyceride [Mass/volume] i n Serum or PlasmaOrdered By: Magdalene Hough on 01-02-2025 Triglyceride [Mass/Vol] 86 mg/dL 0-149 [facility] Comment on above: TRIG ATP III CLASSIF ICATIONTRIG less than 150 mg/dL NormalTRIG 150-199 mg/dL Borderline highTRIG 200-500 mg/dL High TRIG greater than 500 mg/dL Very highStandard traceable to the Center for Disease Conrtrol and Prevention (CDC) test method. 36on 12-24-2024 36 Regarding CTA coronaries from 12/23/2024: Magdalene Hough MD 12/23/24 8:05 PM Please reassure her that she does not have significant coronary artery disease - Normal coronary CTA without evidence for significant coronary artery stenosis. Mild stenosis in the proximal LAD, RCA and left circumflex The mild stenosis would warrant aspirin 81 mg daily and a statin - switch Zocor to Lipitor 40 mg daily or Crestor 20 mg daily. Will need LFTs and FLP 6 weeks after. The scan also showed: Suggestion of large cyst at the upper pole of the left kidney partially visualized at the inferior most slices - This needs renal imaging (ultrasound or CT scan) and she should follow up with her PCP +/- urology to discuss - this was an incidental finding and it's important she follow up Thank you. LM for patient to return my call. I also made sure to email CTA result and this message from Dr. Hough to Dr. Wilsk's office. Normal [facility] CTA HEART CORONARY W IV CONT RAST W OR WO FFRCTon 12-23-2024 CTA HEART CORONARY W IV CONTRAST W OR WO FFRCT CTA HEART CORONARY W IV CONTRAST W [...] most slices. Electronically signed: Rosanne Mott MD. Not Trishadtd Invalid Interpretation Code [facility] Office Visiton 10-29-2024 Follow-up visit [id number] VinikishaTelma R 1960 F Date Provider Department Center 10/29/2024 271-MAGDALENE HOUGH BH CARD [facility] Family History Problem Relation Age of Onset Coronary artery disease Father Family Status - Relation Status Age at Mother Father Alive Level of Service:[address]572 [place] OFFICE/OUTPATIENT NEW MODERATE MDM 45 MINUTES Normal [facility] Orders Onlyon 10-28-2024 Orders Only [id number] Heidy Perezerine R 1960 F Date Provider Department Center 10/28/2024 [id number], HISTORICAL BH CARD [facility] Family History Problem Relation Age of Onset Coronary artery disease Father Family Status - Relation Status Age at Mother Father Alive Normal [facility] Orders Onlyon 10-27-2024 Orders Only [id number] VinikishaTelma R 1960 F Date Provider Department Center 10/27/2024 [id number], HISTORICAL BH CARD [facility] Family History Problem Relation Age of Onset Coronary artery disease Father Family Status - Relation Status Age at Mother Father Alive Normal [facility] No Panel InformationOrdered By: Walter Murphy on 03-26-2024 Miscellaneous Pathology Test See comment [facility] Comment on above: See report. Scanned copy available in EMR. Pathology Request for Lab Co rpon 03-26-2024 Pathology Request for Lab Inna Normal [facility] [place] [facility] Comment on above: Order Comment: PATHO LOGY GI SPECIMEN Result Comment: See report. Scanned copy available in EMR. PERFORMED BY: [place] [address] [place] [address] PATHOLOGIST [employer] DEON KLINE M.D. Performed By: #### P ATH TO [facility] #### [address] MM screening mammo BI w/CADo n 03-19-2024 MM screening mammo BI w/CAD [facility] Main Reading [address] [place] [address] Mammography Report Signed Patient: Telma Perez MR#: [id number] : 1960 Acct:[id number] Age/Sex: 63 / F ADM Date: 03/19/24 Loc: [place] Room: Type: [facility] Attending Dr: Referral Self Copies to: Isai Wilks MD SELF,REFERRAL Ordering Provider: SELF,REFERRAL Date of Service: 03/19/24 MM/MM screening mammo BI w/CAD: SCREENING BILATERAL Screening Full Field digital mammogram with 3-D imaging. Full field digital CC and MLO imaging performed. CAD utilized. COMPARISON: 10/05/2022 HISTORY: Annual screening BREAST COMPOSITION: Scattered fibroglandular densities of the breast parenchyma identified BREAST CALCIFICATIONS: Benign calcifications present. VASCULAR CALCIFICATIONS: None ARCHITECTURAL DISTORTION: None BREAST NODULE: None AXILLARY LYMPH NODES: Normal POSTSURGICAL CHANGES: None MM/MM screening mammo BI w/CAD IMPRESSION: No mammographic evidence of malignancy. Routine follow-up recommended in one year. RESULT CODE: 2 Benign Findings(s) DENSITY CODE: 2 (approximately 25-50% glandular) FOLLOW UP: 1YR THE FALSE-NEGATIVE RATE OF MAMMOGRAPHY IS APPROXIMATELY 10%. IMAGING OF A PALPABLE ABNORMALITY MUST BE BASED ON CLINICAL GROUNDS. PATIENT WAS ENTERED INTO A REMINDER SYSTEM WITH A TARGET DUE DATE FOR THE NEXT MAMMOGRAM. Impression dictated by: Da Mendez M.D.03/19/2024 2:21 PM Dictation Location: [facility] Transcribed By: [facility] 03/19/24 1421 Dictated By: Da Mendez DO 03/19/24 1416 Signed By: 03/19/24 1421 Normal [facility] [place] [facility] XR hand RT min 3V*on 024 XR hand RT min 3V* [facility] [address] [place] [address] XRay Report Signed Patient: Telma Perez MR#: [id number] : 1960 Acct:[id number] Age/Sex: 63 / F ADM Date: 03/04/24 Loc: [facility] Room: Type: [facility] Attending Dr: Bonnie Hernandez MD Copies to: [...] Da Mendez M.D.03/04/2024 4:03 PM Dictation Location: [place] [address] Transcribed By: [facility] 03/04/24 1603 Dictated By: Da Mendez DO 03/04/24 1600 Signed By: 03/04/24 1603 Normal [facility] [place] [facility] Alanine aminotransferase [En zymatic activity/volume] in Serum or PlasmaOrdered By: [facility] on 04-28-2023 ALT [Catalytic activity/Vol] 11 U/L 7-52 [facility] Albumin [Mass/volume] in Ser um or Plasma by Bromocresol green (BCG) dye binding methoOrdered By: [facility] on 04-28-2023 Albumin BCG dye [Mass/Vol] 4.2 g/dL 3.5-5.7 [facility] Alkaline phosphatase [Enzyma tic activity/volume] in Serum or PlasmaOrdered By: [facility] on 04-28-2023 ALP [Catalytic activity/Vol] 66 U/L 34-104 [facility] Aspartate aminotransferase [ Enzymatic activity/volume] in Serum or PlasmaOrdered By: [facility] on 04-28-2023 AST [Catalytic activity/Vol] 14 U/L 13-39 [facility] Bilirubin.total [Mass/volume ] in Serum or PlasmaOrdered By: [facility] on 04-28-2023 Bilirubin [Mass/Vol] 1.3 mg/dL 0.3-1.0 [facility] Comment on above: Samples from patient s who have taken Naproxen have shown spurious elevation in Total Bilirubin levels. A metabolite of Naproxen, O-desmethylnaproxen, has been shown to interfere with the Angel-Hodan method for measuring Total Bilirubin. Calcium [Mass/volume] in Ser um or PlasmaOrdered By: [facility] on 04-28-2023 Calcium [Mass/Vol] 9.2 mg/dL 8.6-10.3 [facility] Carbon dioxide, total [Moles /volume] in Serum or PlasmaOrdered By: [facility] on 04-28-2023 CO2 [Moles/Vol] 28.1 mmol/L 21.0-31.0 [facility] Chloride [Moles/volume] in S tootie or PlasmaOrdered By: [facility] on 04-28-2023 Chloride [Moles/Vol] 105 mmol/L 98-107 [facility] Cholesterol [Mass/volume] in Serum or PlasmaOrdered By: [facility] on 04-28-2023 Cholesterol [Mass/Vol] 270 mg/dL 140-200 [facility] Comment on above: Chol less than 200 m g/dl low riskChol 201-239 mg/dl borderline riskChol 240 mg/dl and greater high risk Cholesterol in LDL Calc [Mas s/Vol]Ordered By: [facility] on 04-28-2023 Cholesterol in LDL [Mass/Vol] 186 mg/dL 0-100 [facility] Comment on above: LDL ATP III CLASSIFI CATIONLDL less than 100 mg/dL OptimalLDL 100-129 mg/dL Near or above optimalLDL 130-159 mg/dL Borderline highLDL 160-189 mg/dL HighLDL greater than 189 mg/dL Very high Cholesterol in VLDL Calc [Ma ss/Vol]Ordered By: [facility] on 04-28-2023 Cholesterol in VLDL [Mass/Vol] 16 mg/dL [facility] Creatinine [Mass/volume] in Serum or PlasmaOrdered By: [facility] on 04-28-2023 Creatinine [Mass/Vol] 0.78 mg/dL 0.60-1.20 [facility] Erythrocyte distribution wid th Auto (RBC) [Ratio]Ordered By: [facility] on 04-28-2023 Erythrocyte distribution width (RBC) [Ratio] 13.6 % 11.9-15.3 [facility] Glucose [Mass/volume] in Ser um or PlasmaOrdered By: [facility] on 04-28-2023 Glucose [Mass/Vol] 92 mg/dL 70-100 [facility] Comment on above: ADA recommended refe rence rangeRandom Glucose Reference Range is dependent on time and content of last meal. Glucose of more than 200 mg/dL in a nonstressed, ambulatory subject supports the diagnosis of Diabetes Mellitus. Hematocrit Auto (Bld) [Volum e fraction]Ordered By: [facility] on 04-28-2023 Hematocrit (Bld) [Volume fraction] 36.4 % 34.0-46.4 [facility] Hemoglobin [Mass/volume] in BloodOrdered By: [facility] on 04-28-2023 Hemoglobin (Bld) [Mass/Vol] 12.1 g/dL 11.8-15.4 [facility] Leukocytes [#/volume] correc armando for nucleated erythrocytes in Blood by Automated counOrdered By: [facility] on 04-28-2023 WBC corrected for nucl RBC Auto (Bld) [#/Vol] 7.4 10*3/uL 3.8-11.6 [facility] MCH Auto (RBC) [Entitic mass ]Ordered By: [facility] on 04-28-2023 MCH (RBC) [Entitic mass] 30.0 pg 24.7-34.3 [facility] MCHC Auto (RBC) [Mass/Vol]Or dered By: [facility] on 04-28-2023 MCHC (RBC) [Mass/Vol] 33.3 g/dL 32.0-35.0 [facility] MCV Auto (RBC) [Entitic vol] Ordered By: [facility] on 04-28-2023 MCV (RBC) [Entitic vol] 90.1 fL 80-100 [facility] No Panel InformationOrdered By: [facility] on 04-28-2023 Estimated GFR (CKD-EPI) > 60.0 mL/Min [facility] Creatinine Clearance (Chem N/A [facility] Platelet mean volume Auto (B ld) [Entitic vol]Ordered By: [facility] on 04-28-2023 Platelet mean volume (Bld) [Entitic vol] 8.6 fL 6.3-10.7 [facility] Platelets Auto (Bld) [#/Vol] Ordered By: [facility] on 04-28-2023 Platelets (Bld) [#/Vol] 236 10*3/uL 150-450 [facility] Potassium [Moles/volume] in Serum or PlasmaOrdered By: [facility] on 04-28-2023 Potassium [Moles/Vol] 3.7 mmol/L 3.5-5.1 [facility] Protein [Mass/volume] in Ser um or PlasmaOrdered By: [facility] on 04-28-2023 Protein [Mass/Vol] 7.5 g/dL 6.4-8.9 [facility] RBC Auto (Bld) [#/Vol]Ordere d By: [facility] on 04-28-2023 RBC (Bld) [#/Vol] 4.04 10*6/uL 3.60-5.00 [facility] Serum or plasma anion gap de terminationOrdered By: [facility] on 04-28-2023 Anion gap [Moles/Vol] 11.6 mmol/L 6.0-15.0 [facility] Serum or plasma high density lipoprotein (HDL) cholesterol measurementOrdered By: [facility] on 04-28-2023 Cholesterol in HDL [Mass/Vol] 68 mg/dL 23-92 [facility] Comment on above: HDL CHOL ATP-III CLA SSIFICATION Cardiovascular RiskHDL > or equal to 60 mg/dL LOWHDL < 40 mg/dL HIGH Serum or plasma total choles terol/high density lipoprotein (HDL) cholesterol mass ratOrdered By: [facility] on 04-28-2023 Cholesterol.total/Lili sterol in HDL [Mass ratio] 4.0 {ratio} <5.0 [facility] Sodium [Moles/volume] in Ser um or PlasmaOrdered By: [facility] on 04-28-2023 Sodium [Moles/Vol] 141 mmol/L 136-145 [facility] Triglyceride [Mass/volume] i n Serum or PlasmaOrdered By: [facility] on 04-28-2023 Triglyceride [Mass/Vol] 80 mg/dL 0-149 [facility] Comment on above: TRIG ATP III CLASSIF ICATIONTRIG less than 150 mg/dL NormalTRIG 150-199 mg/dL Borderline highTRIG 200-500 mg/dL High TRIG greater than 500 mg/dL Very highStandard traceable to the Center for Disease Conrtrol and Prevention (CDC) test method. Urea nitrogen [Mass/volume] in Serum or PlasmaOrdered By: [facility] on 04-28-2023 Urea nitrogen [Mass/Vol] 20 mg/dL 12-19 [facility] Urine culture routineOrdered By: ZAYRA SALICDO on 07-21-2022 Bacteria identified Cx Nom (U) No Growth 2 Days [facility] SARS-CoV-2 (COVID-19) RNA NA A+probe Ql (Resp)on 02-13-2022 SARS-CoV-2 (COVID-19) RNA LAYO+probe Ql (Unsp spec) Positive [facility] bubl Other COVID Quick Testingon 2021 Result Negative [facility]ubl Other Vital Signs Date Time Vital Sign Value Performing Clinician Faci lity 01-02-2025 11:29-0400 Body height 168.91 cm Isai Wilks MD Work Phone: [facility] 01-02-2025 11:29-0400 Body mass index (BMI) [Ratio] 24 kg/m2 Isai Wilks MD Work Phone: [facility] 01-02-2025 11:29-0400 Body weight 68.49 kg Isai Wilks MD Work Phone: [facility] 01-02-2025 11:29-0400 Diastolic blood pressure 75 mm[Hg] Isai Wilks MD Work Phone: [facility] 01-02-2025 11:29-0400 Heart rate 62 /min Isai Wilks MD Work Phone: [facility] 01-02-2025 11:29-0400 SaO2% (BldA) [Mass fraction] 100 % Isai Wilks MD Work Phone: [facility] 01-02-2025 11:29-0400 Systolic blood pressure 134 mm[Hg] Isai Wilks MD Work Phone: [facility] 09-17-2024 15:58-0400 Body height 168.91 cm [facility] 09-17-2024 15:58-0400 Body mass index (BMI) [Ratio] 23.8 kg/m2 [facility] 09-17-2024 15:58-0400 Body weight 68.03 kg [facility] 09-17-2024 15:58-0400 Diastolic blood pressure 69 mm[Hg] [facility] 09-17-2024 15:58-0400 Heart rate 79 /min [facility] 09-17-2024 15:58-0400 SaO2% (BldA) [Mass fraction] 99 % [facility] 09-17-2024 15:58-0400 Systolic blood pressure 114 mm[Hg] [facility] 07-28-2024 11:04-0500 Body mass index (BMI) [Ratio] 24.77 kg/m2 Zayra Nataprawira DO Work Phone: [facility] 07-28-2024 11:04-0500 Body weight 71.22 kg Zayra Nataprawira DO Work Phone: [facility] 07-28-2024 11:04-0500 Diastolic blood pressure 80 mm[Hg] Zayra Nataprawira DO Work Phone: [facility] 07-28-2024 11:04-0500 Systolic blood pressure 138 mm[Hg] Zayra Nataprawira DO Work Phone: [facility] 03-26-2024 09:15-0400 Diastolic blood pressure 76 mm[Hg] MD Isai Wilks Work Phone: [facility] 03-26-2024 09:15-0400 Heart rate 54 /min MD Isai Wilks Work Phone: [facility] 03-26-2024 09:15-0400 Respiratory rate 16 /min MD Isai Wilks Work Phone: [facility] 03-26-2024 09:15-0400 SaO2% (BldA) [Mass fraction] 100 % MD Isai Wilks Work Phone: [facility] 03-26-2024 09:15-0400 Systolic blood pressure 133 mm[Hg] MD Isai Wilks Work Phone: [facility] 03-26-2024 07:29-0400 Body height 168.91 cm MD Isai Wilsk Work Phone: [facility] 03-26-2024 07:29-0400 Body temperature 97.8 [degF] MD Isai Wilks Work Phone: [facility] 03-26-2024 07:29-0400 Body weight 68 kg MD Isai Wilks Work Phone: [facility] Encounters Encounter Date Encounter Type Care Provider Facility Start: 01-02-2025 End: 01-02-2025 ambulatory Isai Wilks MD Work Phone: [facility] Work Phone: Start: 01-02-2025 End: 01-02-2025 Patient encounter procedure [facility] Work Phone: Start: 12-23-2024 End: 12-23-2024 ambulatory [facility] Start: 10-29-2024 End: 10-29-2024 ambulatory [facility] Start: 09-30-2024 End: 09-30-2024 Patient encounter procedure Isai Wilks MD Work Phone: [facility] Work Phone: Start: 09-30-2024 End: 09-30-2024 ambulatory Isai Wilks MD Work Phone: [facility] Work Phone: Start: 09-17-2024 End: 09-17-2024 ambulatory [facility] Work Phone: Start: 09-17-2024 End: 09-17-2024 Patient encounter procedure [facility] Work Phone: Start: 07-28-2024 End: 07-28-2024 Patient encounter status Zayra Bennettaprkeishara DO Work Phone: [facility] Start: 07-28-2024 End: 07-28-2024 Periodic preventive med est patient 65yrs& older Zayra Hamilton Nataprawira DO Work Phone: [facility] Comment on above: Encounter for gyneco logical examination without abnormal finding (Primary Dx); Vaginal dryness, menopausal; Screening breast examination; Postmenopausal HRT (hormone replacement therapy) Start: 07-28-2024 End: 07-28-2024 ambulatory ZAYRA Hamilton JESSEFERNANDEZ Not Available Start: 04-02-2024 End: 04-02-2024 ambulatory MD Isai Wilks Work Phone: [facility] Work Phone: Start: 04-02-2024 End: 04-02-2024 Patient encounter procedure MD Isai Wilks Work Phone: [facility] Work Phone: Start: 04-01-2024 Non-patient / Non-visit MD Isai Wilks Work Phone: [facility] Work Phone: Start: 03-26-2024 Non-patient / Non-visit MD Isai Wilks Work Phone: [facility] Work Phone: Start: 03-26-2024 End: 03-26-2024 Admission to same day surgery center MD Isai Wilks Work Phone: [facility] Work Phone: Start: 03-26-2024 End: 03-26-2024 ambulatory MD Isai Wilks Work Phone: [facility] Work Phone: Start: 03-19-2024 End: 03-19-2024 Patient encounter procedure MD Isai Wilks Work Phone: [facility] Work Phone: Start: 03-19-2024 End: 03-19-2024 ambulatory MD Isai Wilks Work Phone: [facility] Work Phone: Start: 03-06-2024 End: 03-06-2024 ambulatory MD Isai Wilks Work Phone: [facility] Work Phone: Start: 03-06-2024 End: 03-06-2024 Patient encounter procedure MD Isai Wilks Work Phone: [facility] [address] Work Phone: Start: 03-04-2024 End: 03-04-2024 ambulatory MD Isai Wilks Work Phone: [facility] Work Phone: Start: 03-04-2024 End: 03-04-2024 Patient encounter procedure MD Isai Wilks Work Phone: [facility] Work Phone: Start: 03-04-2024 End: 03-04-2024 Patient encounter procedure MD Isai Wilks Work Phone: [facility] Start: 03-04-2024 End: 03-04-2024 ambulatory MD Isai Wilks Work Phone: [facility] Work Phone: Start: 04-28-2023 End: 04-28-2023 ambulatory MD Isai Wilks Work Phone: [facility] Work Phone: Start: 04-28-2023 End: 04-28-2023 Departed Referred MD Isai Wilks Work Phone: [facility] Work Phone: Start: 10-05-2022 End: 10-05-2022 ambulatory MD Isai Wilks Work Phone: [facility] Work Phone: Start: 10-05-2022 End: 10-05-2022 Patient encounter procedure MD Isai Wilks Work Phone: [facility] Work Phone: Start: 07-21-2022 End: 07-21-2022 ambulatory DO Zayra Salcido Work Phone: [facility] Work Phone: Start: 07-21-2022 End: 07-21-2022 Departed Referred DO Zayra Salcido Work Phone: [facility] Work Phone: Start: 02-13-2022 End: 02-13-2022 ambulatory Quynh Pineda Other [employer] Other Start: 02-13-2022 Office outpatient visit 5 minutes Quynh Pineda [facility] Start: 10-13-[address] ISAI WILKS Facility : Start: 08-30-2021 End: 08-30-2021 ambulatory Beti Cole Other [employer] Other Start: 08-30-2021 Office outpatient visit 5 minutes Beti Cole [facility] Procedures Date Procedure Procedure Detail Performing Clinician Start: 03-26-2024 Colonoscopy MD Isai Wilks Work Phone: Start: 03-19-2024 End: 03-19-2024 Screening mammography of bilateral breasts MD Isai Wilks Work Phone: Start: 03-04-2024 Plain X-ray of right hand MD Isai Wilks Work Phone: Start: 10-05-2022 Screening mammograph y of bilateral breasts MD Isai Wilks Work Phone: Start: 07-22-2022 Microscopic observat ion [Identifier] in Cervix by Cyto stain Zayra Nataprawira DO Work Phone: Start: 07-21-2022 Urine culture MD Nabeel Wilks Work Phone: Plan of Treatment Date Care Activity Detail Author Start: 07-22-2025 Screening for malignant neoplasm of cervix [facility] Start: 03-19-2025 Screening for malignant neoplasm of breast Mammogram [facility] Start: 03-26-2024 [facility] Start: 2024 Pneumococcal Vaccine: 65+ Years (1 of 1 - PCV) Pneumococcal Vaccine: 65+ Years (1 of 1 - PCV) [facility] Start: 03-04-2024 Plain X-ray of right hand XR hand RT min 3V* [facility] Start: 03-04-2024 XR Hand - right GE 3 Views [facility] Start: 01-27-2024 Influenza vaccination Influenza Vaccine (#1) [facility] Start: 07-21-2022 Bacteria identified in Urine by Culture [facility] Start: 1989 Screening for malignant neoplasm of cervix HPV/Cotest [facility] Start: 1960 Screening for malignant neoplasm of colon [facility] Patient Education Colon polyps H emorrhoids (DC) Know your Meds [facility] Work Phone: [facility] Immunizations Immunization Date Immunization Notes Care Provider Fa cility 03-29-2023 influenza virus vaccine, unspecified formulation Zayra Nataprawira DO Work Phone: [facility] 07-02-2020 COVID-19 mRNA-1273 (Moderna) DO Zayra Nataprawira Work Phone: [facility] 06-04-2020 COVID-19 mRNA-1273 (Moderna) DO Zayra Nataprawira Work Phone: [facility] Payers Date Payer Category Payer Medicaid [employer] A DVANTAGE [id number] 2024 Private Health Insurance [id number] 2016 Unknown [id number] 1959 Self-pay 1960 Unknown [id number] 1960 Unknown [id number] Medicare Medicare [id number] Unknown [id number] Unknown [id number] Unknown [id number] Unknown [id number] Unknown [id number] Unknown [id number] Worker's Compensation [facility] C t Ind [id number] Social History Date Type Detail Facility Start: 07-28-2024 Sex Assigned At F [facility] Start: 1960 Sex Assigned At Female F [facility] Start: 09-14-2021 End: 01-02-2025 Tobacco smoking status NHIS Never smoked tobacco (finding) [facility] Start: 07-23-2023 Tobacco use and exposure Smokeless tobacco non-user [facility] Start: 07-28-2024 Alcoholic beverage intake Ex-drinker (finding) [facility] Start: 07-28-2024 History of Social function [facility] Start: 07-22-2023 Gender identity Identifies as female gender (finding) [facility] Start: 09-17-2024 End: 10-01-2024 Sex Female (finding) [facility] Goals Date Patient Goal Desired Activity /State Clinical Notes 08-30-2021 to 01-02-2025 Note Date & Type Note Facility 01-02-2025 Evaluation note Diagnosis Onset Date Resolution RANDALL (obstructive sleep apnea) acute January 02, 2025 11:19am [facility] Work Phone: 1(295) 916-142306-04-[facility] Chief Complaint: Patient is here today to establish care and for an abnormal stress test. Patient states she had her stress test she been having chest pain, with and without nothing provokes it, SOB, fatigue, sweating. Patient states she just started CPAP 2 days ago. HPI: Adenike Perez is a 64 y.o. female With a history of dyslipidemia and a family history of premature coronary artery disease who presents due to an abnormal stress test For the past year, she has been noticing increased fatigue, excessive sweats with exertion, and exertional shortness of breath. She does not have exertional chest pain. Recently, she underwent a stress test. She has only began noticing twinges over the left chest after she was told her stress test was abnormal. No orthopnea, no paroxysmal external dyspnea, no lower extremity edema. She was treated for deep venous thrombosis during COVID with about 9 months of Eliquis followed by aspirin 81 mg daily. Review of Systems Constitutional: Positive for night sweats. Cardiovascular: Positive for chest pain. Respiratory: Positive for shortness of breath and sleep disturbances due to breathing. Past Medical History She has a past medical history of DVT of lower limb, acute (CMS/HCC). Surgical History She has no past surgical history on file. Social History She has no history on file for tobacco use, alcohol use, and drug use. Family History No family history on file. Allergies Patient has no allergy information on record. Medications Current Outpatient Medications: Eliquis 5 mg tablet, Take by mouth two times daily., Disp: , Rfl: simvastatin (Zocor) 20 mg tablet, Take 20 mg by mouth at bedtime., Disp: , Rfl: Last Recorded Vitals BP 154/80 (BP Location: Right arm, Patient Position: Sitting) Pulse 62 Ht 1.676 m (5' 6 ) Wt 68.5 kg (151 lb) SpO2 99% BMI 24.37 kg/m??? Physical Examination: GENERAL: alert and oriented x3, well developed, in no acute distress. HEAD: atraumatic, normocephalic. EYES: GERMAN, EOMI. NECK: trachea midline, no JVD present, no carotid bruits present. CARDIAC: S1, S2 present. RRR. No murmur, rubs, or gallops. RESPIRATORY: CTAB, no increased effort of breathing, no rales, rhonchi, or wheezing. ABDOMEN: soft, nontender, nondistended. EXTREMITIES: no lower extremity edema, peripheral pulses are 2+ bilaterally. No rash/skin discoloration present. NEURO: strength/sensation equal and symmetric in bilateral upper and lower extremities. PSYCH: appropriate mood, affect, and judgement. Investigations: Nuclear stress test 10/22/2024: Exercise stress test:The patient exercised for 6 minutes and 48 seconds reaching stage III of the Ramin protocol, achieving 9 METS. No ischemic EKG changes Bailey treadmill score is +6.5 low risk category Nuclear images Myocardial perfusion is abnormal with soft tissue attenuation The basal anterolateral reversible perfusion defect is seen suggestive of ischemia Global left ventricular systolic function is normal No evidence of transient ischemic dilatation Assessment: Fatigue Excessive sweating with exercise Dyslipidemia Family history of premature coronary artery disease Abnormal stress test Plan: Will obtain a fasting lipid profile Continue aspirin and Zocor for now; consider switching to atorvastatin or rosuvastatin We discussed options for abnormal stress test; her exercise portion was actually quite reassuring. However, stress imaging shows a perfusion defect in the territory of the left anterior descending coronary artery. It would be prudent to rule out significant coronary artery disease. We discussed noninvasive coronary CTA +/- FFR versus cardiac catheterization and agreed on the former. I will see her after testing. Magdalene Hough MD, MPH, [facility], [facility], [facility] Interventional Cardiology Pager Email: [email or web address]04-23-2025 Evaluation note* Diagnosis Onset Date Resolution Status Admit Date Apnea, sleep acute September 17, 2024 3:45pm [facility] Work Phone: 1(673) 435-953103-03-2025 History of Present illness Narrative* Zayra Salcido DO - 07/28/2024 11:00 AM EST Images from the original note were not included. Zayra Salcido DO Obstetrics and Gynecology Name: Telma Perez Date/Time of Service:07/28/2024 11:28 AM :1960 Age: 64 y.o. Subjective Adenike Perez is a 64 y.o. female who is here for a routine exam. Gynecologic Exam (Patient here for yearly. Denies any problems at this time. Patient continues to use Estradiol Cream one time per week, needs refills. Completed mammogram on 03/19/24-benign. Colonoscopy 2016 polyps, benign) Control Contraception: post menopausal status. LMP: No LMP recorded. Patient is postmenopausal. Last Mammogram Results for orders placed in visit on 07/21/22 Bilateral screening mammogram Narrative PERFORMED AT [facility] LOCATION:[id number] Bi-RAD 2, Density 2 Current Outpatient Medications on File Prior to Visit Medication Sig Dispense Refill ASPIRIN 81 PO Aspirin 81 simvastatin (Zocor) 20 MG tablet 1 (one) time each day at the same time [DISCONTINUED] Eliquis 5 MG tablet TAKE 2 TABLETS BY MOUTH TWICE A DAY FOR 1 WEEK ,THEN 1 TABLET TWICE A DAY [DISCONTINUED] estradiol (Estrace) 0.1 MG/GM vaginal cream USE 0.5 gram VAGINALLY TWICE A WEEK at bedtime DIRECTED 42.5 g 2 No current facility-administered medications on file prior to visit. Past Medical History: Diagnosis Date DVT (deep venous thrombosis) ([facility]) due to covid Hyperlipidemia ([facility]) Past Surgical History: Procedure Laterality Date BUNIONECTOMY Left COLONOSCOPY 2009 polyp removed, benign f/u 3 yrs not done. COLONOSCOPY 2016 CYSTOSCOPY VAGINAL DELIVERY No family history on file. Social History Tobacco Use Smoking status: Never Smokeless tobacco: Never Substance Use Topics Alcohol use: Not Currently Drug use: Never OB History Para Term AB Living 2 2 SAB IAB Ectopic Multiple Live Births # Outcome Date GA Lbr Shan/2nd Weight Sex Type Anes PTL Lv 2 Para 1 Para No Known Allergies Review of Systems Constitutional: Negative. Respiratory: Negative. Cardiovascular: Negative. Gastrointestinal: Negative. Musculoskeletal: Negative. Skin: Negative. Neurological: Negative. Endocrine: Negative. Objective BP 138/80 Wt 157 lb BMI 24.77 kg/m Body mass index is 24.77 kg/m . Physical Exam Genitourinary: Urethral meatus normal. No lesions in the vagina. Right Labia: No lesions. Left Labia: No lesions. No vaginal discharge. No vaginal prolapse present. Moderate vaginal atrophy present. Right Adnexa: not tender and no mass present. Left Adnexa: not tender and no mass present. No cervical lesion. Uterus is not tender. Uterus is anteverted. No urethral stress urinary incontinence with cough stress test present. Bladder is not tender. Rectum: No rectovaginal septum nodularity. Breasts: Right: No mass, nipple discharge, skin change or tenderness. Left: No mass, nipple discharge, skin change or tenderness. HENT: Head: Normocephalic and atraumatic. Mouth/Throat: Mouth: Mucous membranes are moist. Cardiovascular: Rate and Rhythm: Normal rate and regular rhythm. Pulmonary: Effort: Pulmonary effort is normal. Breath sounds: Normal breath sounds. Abdominal: General: Bowel sounds are normal. Palpations: Abdomen is soft. Musculoskeletal: General: No tenderness. Cervical back: Neck supple. Neurological: Mental Status: She is alert and oriented to person, place, and time. Skin: General: Skin is warm and dry. Psychiatric: Mood and Affect: Mood normal. Vitals and nursing note reviewed. Assessment/Plan 1. Encounter for gynecological examination without abnormal finding (Primary) Breast and pelvic exam performed. Discussed findings. Patient to contact the office with any changes to her gynecological condition. 2. Vaginal dryness, menopausal Continue current treatment. Refill Rx sent - estradiol (Estrace) 0.1 MG/GM vaginal cream; USE 0.5 gram VAGINALLY TWICE A WEEK at bedtime DIRECTED Dispense: 42.5 g; Refill: 2 3. Screening breast examination Mammogram uptodate 4. Postmenopausal HRT (hormone replacement therapy) - estradiol (Estrace) 0.1 MG/GM vaginal cream; USE 0.5 gram VAGINALLY TWICE A WEEK at bedtime DIRECTED Dispense: 42.5 g; Refill: 2 ICD-10-CM 1. Encounter for gynecological examination without abnormal finding Z01.419 2. Vaginal dryness, menopausal N95.1 estradiol (Estrace) 0.1 MG/GM vaginal cream 3. Screening breast examination Z12.39 4. Postmenopausal HRT (hormone replacement therapy) Z79.890 estradiol (Estrace) 0.1 MG/GM vaginal cream Follow up in about 1 year (around 07/28/2025) for Yearly. Zayra Saclido DO 07/28/2024 11:28 AM [id number] Procedure [facility]09-19-2022 Evaluation note* Encounter Date Diagnosis Assessment Notes Treatment Notes Treatment Clinical Notes Jan, Contact with and (suspected) exposure to other viral communicable diseases (ICD-10 - Z20.828) [facility] Other 04-05-2022 Evaluation note* Encounter Date Diagnosis Assessment Notes Treatment Notes Treatment Clinical Notes Aug, Encounter for screening for other viral diseases (ICD-10 - Z11.59) Aug, Other Additional time spent conducting pre-visit phone call, screening for symptoms, instructions on social distancing, application and removal of PPE, and cleaning of examination room, equipment and supplies was preformed. Patient education given for testing methodology and results. Patient care instructions given in writting by [facility] Care At Home document. [employer] Other Evaluation noteNo assessment information available [facility] Work Phone: Evaluation note* Diagnosis Onset Date Resolution Status Arthritis of carpometacarpal (CMC) joint of left thumb acute Trigger finger, right ring finger acute [facility] Work Phone: evaluation note* Diagnosis Onset Date Resolution Status Arthritis of carpometacarpal (CMC) joint of left thumb acute Trigger finger, right ring finger acute Arthritis of carpometacarpal (CMC) joint of left thumb acute Trigger finger, right ring finger acute [facility] Work Phone: Evaluation note* Diagnosis Encounter for gynecological examination without abnormal finding- Primary Vaginal dryness, menopausal Screening breast examination Other screening breast examination Postmenopausal HRT (hormone replacement therapy) Need for prophylactic hormone replacement therapy (postmenopausal) documented in this [facility] Author Walter Murphy [facility] March 26, 2024 8:23am Note Date/Time March 26, 2024 8 :23am [facility] [address] [place] [address] Gastroenterology H&P Signed Patient: Telma Perez MR#: [id number] : 1960 Acct:[id number] Age/Sex: 64 / F Adm Date: 4 Loc: Room: Type: [facility] Attending Dr: Walter Murphy MD Copies to: MD Isai Wood MD~ Date of Service: 03/26/2024 HISTORY & PHYSICAL: Patient's history with special attention to the cardiovascular, pulmonary systems and the current problem was reviewed with the patient immediately prior to the procedure. Present medications and doses reviewed in the EMR. Allergies and pertinent laboratory tests were also reviewedat this time in the EMR. The physical examination, as below, was then performed. Indication, assessment and HPI: 64-year-old female presents for screening colonoscopy Family history of GI malignancy? no PHYSICAL EXAMINATION Mouth and Pharynx : moist mucus membranes, normal dentition Cardiac: regular rate, regular rhythm Pulmonary: normal respiratory effort, able to speak in complete sentences Neurological: alert and oriented x3, no focal deficits noted Abdomen: Abdomen soft, non-tender REVIEW OF SYSTEMS Constitutional: Denies malaise, fevers Cardiovascular: Denies chest pain, palpitations Respiratory: Denies shortness of breath, wheezing Gastrointestinal: Per HPI Genitourinary: Denies dysuria, polyuria Musculoskeletal: Denies joint swelling, joint stiffness Neurological: Denies numbness, tingling Integumentary: Denies rashes, skin lesions Endocrine: Denies fatigue, weight loss Written informed consent obtained from the patient. Risks (including but not limited to perforation, infection, bloating, bleeding, need for emergent surgeryand loss of life), benefits and alternatives explained and questions answered. The patient verbalized understanding. Based on history patient is an appropriate candidate for the procedure. Walter Murphy MD Documented By: Walter Murphy MD 03/26/24821 Signed By: <Electronically signed by Walter Murphy MD> 03/26/24822 [facility] Work Phone: History general Narrative - Reported* Type Description Date Surgical History bunion 1974 Hospitalization History see above [employer] Other Reason for referral (narrative)No reason for referral information availableJ.W. [facility] Work Phone: Summary Purpose Family History No Family History Records Found Relationship Condition Age at Onset Recorded Date/T pako father Heart disease Unknown mother Malignant neoplasm Unknown sister Heart disease Unknown Relationship Condition Age at Onset Recorded Date/T pako father Heart disease Unknown Myocardial infarction Unknown Atrial fibrillation Unknown History of coronary artery bypass surgery Unknown mother History of malignant neoplasm of parotid gland Unknown sister Heart disease Unknown Myasthenia gravis Unknown Advance Directives No Advanced Directives Records Found [...] left thumb Trigger finger, right ring finger Chief Complaint M79.641 - Pain in ri ght hand NEW RT HAND AND WRIST NX Z23 Reason for Visit Arthritis of carpome tacarpal (CMC) joint of left thumb Trigger finger, right ring finger Chief Complaint M79.641 - Pain in ri ght hand NEW RT HAND AND WRIST NX Z23 Screening Reason for Visit Arthritis of carpome tacarpal (CMC) joint of left thumb Trigger finger, right ring finger Chief Complaint M79.641 - Pain in ri ght hand NEW RT HAND AND WRIST NX Z23 Screening hx of colon polyps hx of colon polyps Reason for Visit Arthritis of carpome tacarpal (CMC) joint of left thumb Trigger finger, right ring finger Chief Complaint M79.641 - Pain in ri ght hand NEW RT HAND AND WRIST NX Z23 Screening hx of colon polyps hx of colon polyps Amb Documentation 4 WEEKS Reason for Visit Arthritis of carpome tacarpal (CMC) joint of left thumb Trigger finger, right ring finger Arthritis of carpometacarpal (CMC) joint of left thumb Trigger finger, right ring finger Chief Complaint Admit Date R06.83 September 17, 2024 3:4 5pm Chief Complaint Admit Date R06.83 September 17, 2024 3:4 5pm G47.30 - Sleep apnea, unspecified September 6:35pm Reason for Visit Admit Date Apnea, sleep September 17, 2024 3:4 5pm Chief Complaint Admit Date RANDALL / 31-90 DAY FOLLOW UP January 02 11:19am e78.2 January 02, 2025 12: 01pm Reason for Visit Admit Date RANDALL (obstructive sleep apnea) December 11:19am Additional Source Comments INFORMATION SOURCE (unrecogn ized section and content) DATE CREATED AUTHOR 10/15/2021 [facility] DATE CREATED AUTHOR AUTHOR'S ORGANIZ ATION 07/29/2024 [facility] EPIC DATE CREATED AUTHOR AUTHOR'S ORGANIZ ATION 01/04/2025 [facility] DATE CREATED AUTHOR AUTHOR'S ORGANIZ ATION 01/09/2025 [facility] REASON FOR VISIT (unrecogniz ed section and content) Reason Comments Gynecologic Exam Patient here for piter wright. Denies any problems at this time. Patient continues to use Estradiol Cream one time per week, needs refills. Completed mammogram on 03/19/24-benign. Colonoscopy 2016 polyps, benign Care Teams (unrecognized sec tion and content) Team Status: Active Member Role Status Dates Isai M Hoy , MD Primary Care Provider Active Team Status: [...] Wilks MD Primary Care Provider Active Outreach [facility] Attending Provider Active Team Status: Inactive Member Role Status Deidra Wilks MD Primary Care Provider Active Start: March 06, 2024 End: March 06, 2024 Austen Jansen [facility] DO [facility] Attending Provider Active Start: March 06, 2024 End: March 06, 2024 Team Status: Inactive Member Role Status Deidra Wilks MD Primary Care Provider Active Start: March 19, 2024 End: March 19, 2024 Referral Self Attending Provider Active Start: Sammi ct2023 End: March 19, 2024 Team Status: Inactive Member Role Status Deidra Wilks MD Primary Care Provider Active Start: March 26, 2024 End: March 26, 2024 Walter Murphy MD Attending Provider Active S tart: March 26, 2024 End: March 26, 2024 Team Status: Active Member Role Status Deidra Wilks MD Primary Care Provider Active Start: March 26, 2024 Walter Murphy MD Attending Provider, Other Provider Active Start: March 26, 2024 Team Status: Active Member Role Status Deidra Wilks MD Primary Care Provider Active Start: April 01, 2024 Maegan Evans Attending Provider Active Start: No [email or web address] Team Status: Inactive Member Role Status Deidra Wilks MD Primary Care Provider Active Start: April 02, 2024 End: April 02, 2024 Bonnie Hernandez MD Attending Provider Active Start: April 02, 2024 End: April 02, 2024 Manager Marketing Communications Relationship Specialty Start Date End Date Isai Wilks MD [address] [facility] [place] [address] PCP - General Family Medicine 07/23/23 Team Status: Active Member Role Status Dates Lele Kramer MD Primary Care Provider Acti ve Team Status: Inactive Member Role Status Deidra Kramer MD Primary Care Provider, Attending Provider Active Start: September 17, 2024 End: September 17, 2024 Isai Wilks MD Referring Provider Active Sta rt: September 17, 2024 End: September 17, 2024 Team Status: Inactive Member Role Status Deidra Kramer MD Attending Provider Active Start: September 30, 2024 End: September 30, 2024 Isai Wilks MD Primary Care Provider Active Start: September 30, 2024 End: September 30, 2024 Team Status: Inactive Member Role Status Deidra Wilks MD Primary Care Provider Active Start: January 02, 2025 End: January 02, 2025 Carolann Barrera APRN [facility] Attending Provider Active Start: January 02, 2025 End: January 02, 2025 Team Status: Inactive Member Role Status Deidra Wilks MD Primary Care Provider Active Start: January 02, 2025 End: January 02, 2025 Magdalene Hough Attending Provider Active Start: January 02, 2025 End: January 02, 2025 Goals (unrecognized section and content) Goals may [...] BE BASED ON THE PRIMARY CLINICAL RECORDS. [employer] provides no warranty or guarantee of the accuracy or completeness of information in this document.
== END 2025-01-13 09:58 | disposition home or self-care (01) ==
PROVIDERS: PCP Family Medicine; Visit Provider Family Medicine
DX: Q61.00 Congenital renal cyst, unspecified (principal); N20.0 Calculus of kidney
CPT/HCPCS: 76775

== ENCOUNTER 2025-05-25 15:03 | Outpatient (OUT) | payer MEDICARE, SELFPAY ==
--- OUTSIDE RECORDS SUMMARY | 2024-06-19 03:00 | XMS_ITS ---
Author Organization The [facility] in [place] Address [address] [place] [address] Care Team Providers Care Windows Systems Architect Name Role Phone Nicholas Wilks Primary Care Provider [phone] Eleazar Landry [phone] REASON FOR VISIT RT 1st MPJ fusion Encounters Encounter Location Date Provider Diagnosis [facility] OUT[facility]IENT [address] [place] [id number] 06/19/2024 Eleazar Hillman Plan Of Treatment No Information Progress Notes * Jessica GUZMAN RDOB:[birth year] (65 yo F)Acc No.[id number]:06/19/2024 UNLOCKED PROGRESS NOTE Patient:?Jessica GUZMAN :?Eleazar Hillman DPM, MSDOB:1960???Age: 64 Y???Sex:FemaleDate:06/19/2024Phone:[phone]:[address] [id number]:Nicholas Wilks * * Electronic signature of Eleazar Hillman DPM on 05/25/2025 at 03:07 PM ESTSign off status: PendingVisit Status:?CANC (Cancelled) * Provider: Daryn Hillman DPM, MS Date: 0 06/19/2024 Generated for Printing/Faxing/eTransmitting on:?05/25/2025 03:07 PM EST
--- OUTSIDE RECORDS SUMMARY | 2024-12-31 04:45 | XMS_ITS ---
Author Organization [facility] in [place] Address [address] [place] [address] Care Team Providers Care Product Marketing Consultant Name Role Phone Nicholas Wilks Primary Care Provider [phone] REASON FOR VISIT per cardio test results Encounters Encounter Location Date Provider Diagnosis [facility] [address] [facility] [place] [address] 12/31/2024 Nicholas Wliks Plan Of Treatment No Information Progress Notes * Jesscia GUZMAN RDOB:[birth year] (65 yo F)Acc No.[id number]:12/31/2024 UNLOCKED PROGRESS NOTE Progress Note Patient: Jessica TUCKER :?Wing Wilks (TTC), MDDOB:1960???Age: 64 Y???Sex:FemaleDate:12/31/2024Phone:[phone]:[address] [id number] In:09:47 AM EST Subjective: * Chief Complaints: * 1 . Per cardio test results. * Medical History: Objective: * Vitals: Assessment: Plan: * Treatment: * * Electronic signature of Nicholas Wilks MD, [id number] on 05/25/2025 at 03:07 PM EST Sign off status: PendingVisit Status:?CANC (Cancelled) * Provider: Nilesh ArreolaTTCMD Mary Date: 0 12/31/2024 Generated for Printing/Faxing/eTransmitting on:?05/25/2025 03:07 PM EST
--- OUTSIDE RECORDS SUMMARY | 2025-05-25 15:07 | XMS_ITS | Clinical Summary ---
Author Organization [facility] Address [address] [place] [address] Care Team Providers Care Letter Carrier Name Role Phone Wing Wilks MD Primary Care Provider [phone] Allergies Active AllergyReactionsCriticalityNoted CgzgRexwdegqTnimnirvkehRccksyj19/04/2025 Medications MedicationSigDispense QuantityRefillsLast FilledStart DateEnd DateStatus simvastatin (Zocor) 20 mg tablet Take 20 mg by mouth at bedtime.Active aspirin 81 mg EC tablet Take 81 mg by mouth in the morning.Active atorvastatin (Lipitor) 80 mg tablet Indications:Hyperlipidemia, unspecified hyperlipidemia typeTake 1 tablet (80 mg) by mouth in the morning. 90 tablet 308/048881/6Active Encounters DateTypeDepartmentCare VzixZndkkbvjtgz04/24/2025[facility] [address] [place] [address] Peyton Wood MA from Last 3 Months Family History Medical HistoryRelationNameCommentsCoronary artery diseaseFatherRelationName StatusCommentsFatherAliveMotherDeceased Social History Tobacco UseTypesPacks/DayYears UsedDateSmoking Tobacco: NeverSmokeless Tobacco: Never Tobacco Cessation:Counseling Given: Not Answered Alcohol UseStandard Drinks/WeekCommentsNot Currently0 (1 standard drink = 0.6 oz pure alcohol)CommentsUnknownSex and Gender InformationValueDate Recorded Sex Assigned at GvhoaNzfwyr78/29/2025 7:46 AM EDTLegal EjpKdaykc99/02/2025 11:03 AM EDTGender UzhvrdvaBzetqp04/ 7:46 AM EDTSexual OrientationHeterosexual or Hdvadsno02/29/2025 7:46 AM EDT Last Filed Vital Signs Vital SignReadingTime TakenCommentsBlood Fbczwdpp210/7508 3:01 PM EDT Dnuul900401/21/2025 3:01 PM EDTTemperature--Respiratory Btrw037112/23/2024 9:45 AM EDTOxygen Zmojwmflxf63%01/21/2025 3:01 PM EDTInhaled Oxygen Concentration-- Mkobgs81.5 kg (151 lb)01/21/2025 3:01 PM VHTTsaivj715.6 cm (5' 6 )01/21/2025 3:01 PM EDTBody Mass Index24.37001/21/2025 3:01 PM EDT Plan of Treatment Health MaintenanceDue DateLast DoneCommentsCT Khyqeysuuyqr1959Colonoscopy 1959Colorectal Cancer Tgnjvzabg1959FIT-DNA1959FIT1959 FOBT1960 9520Tjtpyhvbiqzeo1959Depression Iqwqkfdnk70/24/1971Pneumococcal Vaccine: 50+ Years (1 of 2 - PCV)1978Adult Menivkd1503/20/1981Mammogram 1999Zoster Vaccines (1 of 2)2009Fall Risk Sciezlcta44/24/2024OVID- 19 Vaccine (3 - season)/09/2020, 06/04/2020Influenza Vaccine (#1)/06/2022, 03/01/2021, 03/04/2018HIB VaccinesAged OutNo longer eligible based on patient's age to complete this topicHPV VaccinesAged OutNo longer eligible based on patient's age to complete this topicIPV VaccinesAged OutNo longer eligible based on patient's age to complete this topicMeningococcal B VaccineAged OutNo longer eligible based on patient's age to complete this topicMeningococcal VaccineAged OutNo longer eligible based on patient's age to complete this topicRotavirus VaccinesAged OutNo longer eligible based on patient's age to complete this topic Insurance * Guarantor: Jessica Perez TypeRelation to PatientDate of PhoneBilling AddressPersonal/CwzweuJwqg1960 [address] [place] [address] Care Teams Team MemberRelationshipSpecialtyStart DateEnd Wing Wilks MD [address] [facility] [facility] [address] [address] PCP - GeneralFamily Medicine10/29/24
--- OUTSIDE RECORDS SUMMARY | 2025-05-25 15:07 | XMS_ITS | Clinical Summary ---
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 Name Role Phone Wing Wilks MD Primary Care Provider [phone] Allergies No known active allergies Medications MedicationSigDispense QuantityRefillsLast FilledStart DateEnd DateStatus simvastatin (Zocor) 20 MG tablet 1 (one) time each day at the same timeActive ASPIRIN 81 PO Aspirin 81Active estradiol (Estrace) 0.1 MG/GM vaginal cream Indications:Vaginal dryness, menopausal,Postmenopausal HRT (hormone replacement therapy)USE 0.5 gram VAGINALLY TWICE A WEEK at bedtime DIRECTED 42.5 g 5Active Family History RelationNameStatusCommentsFatherAliveMotherDeceased Social History Tobacco UseTypesPacks/DayYears UsedDateSmoking Tobacco: NeverSmokeless Tobacco: Never Tobacco Cessation:Counseling Given: Not Answered Alcohol UseStandard Drinks/WeekCommentsNot Currently0 (1 standard drink = 0.6 oz pure alcohol)CommentsNoSex and Gender InformationValueDate RecordedSex Assigned at SloroEhhdcc36/25/2024 2:09 PM ESTLegal DdwOsocto46/15/2023 6:35 PM EDTGender VudegusrZnezxb59/25/2024 2:09 PM ESTSexual OrientationNot on file Last Filed Vital Signs Vital SignReadingTime TakenCommentsBlood Aludeyzx295/8003 11:04 AM EST Pulse--Temperature--Respiratory Rate--Oxygen Saturation--Inhaled Oxygen Concentration--Lbrvwc46.2 kg (157 lb)07/28/2024 11:04 AM WTAYogrfz710.5 cm (5' 6.75 )08/09/2022 12:00 PM EDTBody Mass Index24.77008/09/2022 12:00 PM EDT Plan of Treatment DateTypeDepartmentCare Team (Latest Contact Info)Ymmlrnnjyeq88/05/2026 3:30 PM ESTOffice Visit [facility] [address] [place] D [address] [address] Zayra Salcido DO [address] [address] Health MaintenanceDue DateLast DoneCommentsCT Wwjzhocebmxd1959Colonoscopy 1959Colorectal Cancer Maqkcnbgg1959FIT-DNA1959FIT1959 FOBT1959 6892Ccvjakcpgyyyx1959Pneumococcal Vaccine: 65+ Years (1 of 1 - PCV)2009Influenza Vaccine (#1)511/06/2022, 03/01/2021, 03/04/2018 Lfvrfqgcd06, 10/05/2022, 08/31/2021, Additional history exists Cervical Cancer ScreeningDiscontinuedPap LezfuNinuvwrlefwm00/25/2023, 07/22/2022 HPV/CotestDiscontinued Procedures Procedure NamePriorityDate/TimeAssociated DiagnosisCommentsMAMMO 3D,BILATERAL SCREENING MAMMOGRAM WITH OQWLOWCryppfx19/23/2024 1:58 PM EDTPAP SMEARRoutine 07/22/2022 12:00 AM ESTfrom Last 3 Months or Most Recently Relevant to Health Maintenance Results * MAMMO 3D,BILATERAL SCREENING MAMMOGRAM WITH TOMOSY (03/19/2024 1:58 PM EDT) Anatomical RegionLateralityModalityRadiographic Imaging Narrative Authorizing ProviderResult TypeResult StatusMoncandelario Coyneawira DOIMG XR PROCEDURESFinal Result * Pap Smear (07/22/2022 12:00 AM EST)Specimen (Source)Anatomical Location / LateralityCollection Method / VolumeCollection TimeReceived TimeSwabCervical swab / Unknown Narrative Authorizing ProviderResult TypeResult StatusMona J Nataprawira DOLAB CYTOLOGY ORDERABLESFinal ResultPerforming OrganizationAddressCity/State/ZIP CodePhone Number [facility] from Last 3 Months or Most Recently Relevant to Health Maintenance Insurance Care Teams Team MemberRelationshipSpecialtyStart Date Wing Wilks MD [address] [facility] [place] [id number] PCP - GeneralFamily Medicine07/23/23
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
== END 2025-05-25 15:04 | disposition home or self-care (01) ==
LOC: US 15:04
PROVIDERS: PCP Family Medicine; Visit Provider Family Medicine
DX: M79.605 Pain in left leg (principal)
CPT/HCPCS: 93971